=== PATIENT | male | born 1950 | race Caucasian/White ===

== ENCOUNTER 2021-02-27 06:46 | Outpatient (REF) | payer MEDICARE, SELFPAY ==
[2021-02-27 11:35] LABS: Glucose Urine UA 100 MG/DL (NEG); Leukocyte Esterase Urine NEG (NEG); Nitrite Urine NEG (NEG); Specific Gravity - Urine 1.025 (1.005-1.025); Urine Blood TRACE (NEG); Urine Ketones NEG (NEG); Urine Protein NEG (NEG-TRACE)
[2021-02-27 11:42] LABS: Appearance Urine CLEAR; Color Urine YELLOW
[2021-02-27 12:01] LABS: Estimated Average Glucose 189 mg/dL; Hemoglobin A1c % 8.2 %
[2021-02-27 12:08] LABS: Alanine Aminotransferase 17 U/L (0-40); Albumin Level 4.1 g/dL (3.5-5.0); Alkaline Phosphatase 66 U/L (39-117); Anion Gap 14 (12-20); Aspartate Amino Transferase 13 U/L (5-37); Bilirubin Total 0.4 mg/dL (0.0-1.0); Blood Urea Nitrogen 20 mg/dL (9-16); Calcium 9.1 mg/dL (8.4-10.2); Carbon Dioxide 28 mmol/L (22-29); Chloride 102 mmol/L (96-108); Cholesterol 136 mg/dL; Estimated Glomerular Filt Rate > 60; Glucose Fasting 194 mg/dL (60-99); HDL Cholesterol 45 mg/dL; LDL Cholesterol Calculated 79 mg/dl; Potassium 4.2 mmol/L (3.3-5.1); Sodium 140 mmol/L (135-145); Total Protein 6.5 g/dL (6.5-8.0); Triglycerides 60 mg/dL
[2021-02-27 12:22] LABS: Squamous Epithelial Cell Urine TRACE /LPF; WBC Urine 0 /HPF (0-4)
[2021-02-27 12:22] LABS: Prostate Specific Antigen Scr 3.02 ng/mL (<0.05-4.0); TSH reflex Free T4 1.41 uIU/mL (0.32-4.0)
[2021-02-27 12:24] LABS: RBC Urine 0-2 /HPF (0)
[2021-02-27 12:36] LABS: Creatinine Urine 109.82 mg/dL; Microalbum/Creatinine Ratio Ur 58.2 ug/mg cr
== END 2021-02-27 06:47 | disposition home or self-care (01) ==
LOC: HO.HMGCLDS 06:46
PROVIDERS: PCP Nurse Practitioner Family; Visit Provider Nurse Practitioner Family
DX: E11.9 Type 2 diabetes mellitus without complications (principal); R80.9 Proteinuria, unspecified; Z12.5 Encounter for screening for malignant neoplasm of prostate
CPT/HCPCS: 36415; 80053; 80061; 81001; 82043; 83036; 84153; 84443

== ENCOUNTER 2021-08-08 09:27 | Outpatient (REF) | payer MEDICARE, SELFPAY ==
[2021-08-08 11:41] LABS: Estimated Average Glucose 171 mg/dL; Hemoglobin A1c % 7.6 %
[2021-08-08 11:46] LABS: Alanine Aminotransferase 17 U/L (0-40); Albumin Level 4.5 g/dL (3.5-5.0); Alkaline Phosphatase 64 U/L (39-117); Anion Gap 11 (12-20); Aspartate Amino Transferase 15 U/L (5-37); Bilirubin Total 0.7 mg/dL (0.0-1.0); Blood Urea Nitrogen 20 mg/dL (9-16); Calcium 9.5 mg/dL (8.4-10.2); Carbon Dioxide 28 mmol/L (22-29); Chloride 106 mmol/L (96-108); Estimated Glomerular Filt Rate > 60; Glucose Random 203 mg/dL (60-115); Sodium 141 mmol/L (135-145); Total Protein 7.3 g/dL (6.5-8.0)
== END 2021-08-08 09:28 | disposition home or self-care (01) ==
LOC: HO.HMGCLDS 09:27
PROVIDERS: PCP Nurse Practitioner Family; Visit Provider Nurse Practitioner Family
DX: E11.9 Type 2 diabetes mellitus without complications (principal)
CPT/HCPCS: 36415; 80053; 83036

== ENCOUNTER 2022-05-19 06:19 | Outpatient (REF) | payer MEDICARE, SELFPAY ==
[2022-05-19 11:50] LABS: Alanine Aminotransferase 11 U/L (0-40); Albumin Level 4.4 g/dL (3.5-5.0); Alkaline Phosphatase 56 U/L (39-117); Anion Gap 15 (12-20); Aspartate Amino Transferase 13 U/L (5-37); Blood Urea Nitrogen 19 mg/dL (9-16); Calcium 9.2 mg/dL (8.4-10.2); Carbon Dioxide 26 mmol/L (22-29); Chloride 104 mmol/L (96-108); Cholesterol 147 mg/dL; Estimated Glomerular Filt Rate 54; Glucose Fasting 108 mg/dL (60-99); HDL Cholesterol 44 mg/dL; LDL Cholesterol Calculated 91 mg/dl; Sodium 141 mmol/L (135-145); Total Protein 7.1 g/dL (6.5-8.0); Triglycerides 64 mg/dL
[2022-05-19 12:17] LABS: Prostate Specific Antigen Scr 4.57 ng/mL (<0.05-4.0); TSH reflex Free T4 1.87 uIU/mL (0.32-4.0)
[2022-05-19 12:26] LABS: Estimated Average Glucose 157 mg/dL; Hemoglobin A1c % 7.1 %
== END 2022-05-19 06:20 | disposition home or self-care (01) ==
LOC: HO.HMGCLDS 06:19
PROVIDERS: PCP Nurse Practitioner Family; Visit Provider Nurse Practitioner Family
DX: Z12.5 Encounter for screening for malignant neoplasm of prostate (principal); E11.9 Type 2 diabetes mellitus without complications
CPT/HCPCS: 36415; 80053; 80061; 83036; 84153; 84443

== ENCOUNTER 2023-01-19 07:05 | Outpatient (REF) | payer MEDICARE, SELFPAY ==
[2023-01-19 11:32] LABS: MANUAL DIFF FLAG NO
[2023-01-19 11:48] LABS: Appearance Urine Clear; Color Urine Yellow; Glucose Urine UA Negative (Negative); Leukocyte Esterase Urine Negative (Negative); Nitrite Urine Negative (Negative); Specific Gravity - Urine 1.015 (1.005-1.025); UMIC TRIGGER UACC YES; Urine Blood Trace (Negative); Urine Ketones Negative (Negative); Urine Protein 100 (2+) mg/dL (Neg-Trace)
[2023-01-19 11:50] LABS: Basophils Absolute Auto 0.1 X10*3/uL (0.0-0.2); Basophils Percent Auto 0.9 % (0-2); Eosinophils Absolute Auto 0.4 X10*3/uL (0.0-0.4); Eosinophils Percent Auto 4.2 % (0-4); Hematocrit 41.9 % (42.0-52.0); Hemoglobin 14.1 g/dl (14.0-18.0); Imm Gran Abs Auto 0.01 X10*3/uL (0.00-0.03); Imm Gran Pct Auto 0.1 % (0.0-0.4); Lymphocytes Absolute Auto 3.6 X10*3/uL (1.2-4.9); Lymphocytes Percent Auto 38.4 % (20-40); Mean Corpuscular HGB Conc 33.7 g/dl (31.0-36.0); Mean Corpuscular Hemoglobin 30.9 pg (27.0-33.0); Mean Corpuscular Volume 91.7 fL (80.0-98.0); Mean Platelet Volume 11.5 fL (9.4-12.4); Monocytes Absolute Auto 0.7 X10*3/uL (0.1-1.2); Monocytes Percent Auto 7.1 % (2-11); Neutrophils Absolute Auto 4.7 x10*3/uL (2.0-8.3); Neutrophils Percent Auto 49.3 % (45-73); Platelet Count 187 X10*3/uL (160-400); Red Blood Count 4.57 X10*6/uL (4.60-5.80); Red Cell Distribution Width 13.2 % (11.0-16.0); White Blood Count 9.5 X10*3/uL (4.8-10.8)
[2023-01-19 11:52] LABS: Estimated Average Glucose 134 mg/dL; Hemoglobin A1c % 6.3 %
[2023-01-19 11:55] LABS: Bacteria Urine None Seen (None Seen); Hyaline Casts Urine 0-2 /LPF (0-2); Squamous Epithelial Cell Urine 0-2 /HPF (0-2); WBC Urine 0-5 /HPF (0-5)
[2023-01-19 12:24] LABS: Alanine Aminotransferase 16 U/L (0-40); Albumin Level 4.1 g/dL (3.5-5.0); Alkaline Phosphatase 58 U/L (39-117); Anion Gap 10 (12-20); Aspartate Amino Transferase 16 U/L (5-37); Bilirubin Total 0.8 mg/dL (0.0-1.0); Blood Urea Nitrogen 24 mg/dL (9-16); Calcium 9.3 mg/dL (8.4-10.2); Carbon Dioxide 29 mmol/L (22-29); Chloride 106 mmol/L (96-108); Cholesterol 144 mg/dL; Estimated Glomerular Filt Rate 53; Glucose Fasting 114 mg/dL (60-99); HDL Cholesterol 44 mg/dL; LDL Cholesterol Calculated 89 mg/dl; Potassium 4.4 mmol/L (3.3-5.1); Sodium 141 mmol/L (135-145); Total Protein 6.6 g/dL (6.5-8.0); Triglycerides 59 mg/dL
[2023-01-19 12:26] LABS: Prostate Specific Antigen Scr 6.79 ng/mL (<0.05-4.0); TSH reflex Free T4 2.11 uIU/mL (0.32-4.0)
[2023-01-19 12:38] LABS: Creatinine Urine 103.91 mg/dL; Microalbum/Creatinine Ratio Ur 397.4 ug/mg cr
== END 2023-01-19 07:06 | disposition home or self-care (01) ==
LOC: HO.HMGCLDS 07:05
PROVIDERS: PCP Nurse Practitioner Family; Visit Provider Nurse Practitioner Family
DX: Z00.00 Encounter for general adult medical examination without abnormal findings (principal); Z12.5 Encounter for screening for malignant neoplasm of prostate; R97.20 Elevated prostate specific antigen [PSA]; E11.9 Type 2 diabetes mellitus without complications
CPT/HCPCS: 36415; 80053; 80061; 81001; 82043; 83036; 84153; 84443; 85025

== ENCOUNTER 2023-02-05 08:51 | Outpatient (REF) | payer MEDICARE, SELFPAY ==
[2023-02-05 11:12] LABS: MANUAL DIFF FLAG NO
[2023-02-05 11:25] LABS: Basophils Absolute Auto 0.1 X10*3/uL (0.0-0.2); Basophils Percent Auto 0.7 % (0-2); Eosinophils Absolute Auto 0.4 X10*3/uL (0.0-0.4); Hematocrit 43.3 % (42.0-52.0); Hemoglobin 14.3 g/dl (14.0-18.0); Imm Gran Abs Auto 0.02 X10*3/uL (0.00-0.03); Imm Gran Pct Auto 0.2 % (0.0-0.4); Lymphocytes Absolute Auto 3.2 X10*3/uL (1.2-4.9); Lymphocytes Percent Auto 35.4 % (20-40); Mean Corpuscular Hemoglobin 30.2 pg (27.0-33.0); Mean Corpuscular Volume 91.5 fL (80.0-98.0); Monocytes Absolute Auto 0.6 X10*3/uL (0.1-1.2); Monocytes Percent Auto 6.3 % (2-11); Neutrophils Absolute Auto 4.8 x10*3/uL (2.0-8.3); Neutrophils Percent Auto 53.4 % (45-73); Platelet Count 205 X10*3/uL (160-400); Red Blood Count 4.73 X10*6/uL (4.60-5.80)
[2023-02-05 11:39] LABS: Alanine Aminotransferase 18 U/L (0-40); Albumin Level 4.4 g/dL (3.5-5.0); Alkaline Phosphatase 67 U/L (39-117); Anion Gap 14 (12-20); Aspartate Amino Transferase 15 U/L (5-37); Bilirubin Total 0.6 mg/dL (0.0-1.0); Blood Urea Nitrogen 21 mg/dL (9-16); Calcium 9.4 mg/dL (8.4-10.2); Carbon Dioxide 26 mmol/L (22-29); Chloride 108 mmol/L (96-108); Estimated Glomerular Filt Rate 44; Glucose Random 160 mg/dL (60-115); Potassium 4.6 mmol/L (3.3-5.1); Sodium 143 mmol/L (135-145); Total Protein 6.9 g/dL (6.5-8.0)
[2023-02-05 12:00] LABS: Appearance Urine Hazy; Color Urine Yellow; Glucose Urine UA Negative (Negative); Leukocyte Esterase Urine Negative (Negative); Nitrite Urine Negative (Negative); PH 5.5 (5.0-9.0); Specific Gravity - Urine >= 1.030 (1.005-1.025); UMIC TRIGGER UACC YES; Urine Blood Small (1+) (Negative); Urine Ketones Trace mg/dL (Negative); Urine Protein 100 (2+) mg/dL (Neg-Trace)
[2023-02-05 12:06] LABS: Bacteria Urine None Seen (None Seen); Hyaline Casts Urine 0-2 /LPF (0-2); RBC Urine 0-2 /HPF (0-2); Squamous Epithelial Cell Urine 0-2 /HPF (0-2); WBC Urine 0-5 /HPF (0-5)
== END 2023-02-05 08:52 | disposition home or self-care (01) ==
LOC: HO.HMGCLDS 08:51
PROVIDERS: PCP Nurse Practitioner Family; Visit Provider Nurse Practitioner Family
DX: Z01.818 Encounter for other preprocedural examination (principal); I10 Essential (primary) hypertension; I51.7 Cardiomegaly
CPT/HCPCS: 36415; 80053; 81001; 81003; 85025

== ENCOUNTER 2023-02-07 06:32 | Outpatient (REF) | payer MEDICARE, SELFPAY ==
[2023-02-07 11:13] LABS: Appearance Urine Clear; Color Urine Yellow; Glucose Urine UA Negative (Negative); Leukocyte Esterase Urine Negative (Negative); Nitrite Urine Negative (Negative); PH 5.5 (5.0-9.0); UMIC TRIGGER UACC YES; Urine Blood Trace (Negative); Urine Ketones Negative (Negative); Urine Protein 30 (1+) mg/dL (Neg-Trace)
[2023-02-07 11:16] LABS: Bacteria Urine None Seen (None Seen); Hyaline Casts Urine 0-2 /LPF (0-2); RBC Urine 0-2 /HPF (0-2); Squamous Epithelial Cell Urine 0-2 /HPF (0-2); WBC Urine 0-5 /HPF (0-5)
[2023-02-07 11:19] LABS: Estimated Glomerular Filt Rate 57
== END 2023-02-07 06:33 | disposition home or self-care (01) ==
LOC: HO.HMGCLDS 06:32
PROVIDERS: PCP Nurse Practitioner Family; Visit Provider Nurse Practitioner Family
DX: Z00.00 Encounter for general adult medical examination without abnormal findings (principal); R79.89 Other specified abnormal findings of blood chemistry
CPT/HCPCS: 36415; 81001; 82565

== ENCOUNTER 2023-07-27 09:39 | Outpatient (AMB) | payer MEDICARE, SELFPAY ==
[2023-07-27 10:06] VITALS: BP 162/78; PULSE 77; O2SAT 100; BMI 26.3
--- NOTE | 2023-07-27 10:06 | MHC.PC.OV ---
Vital Signs 07/27/23 10:06 Height 5 ft 10 in Weight 183 lb 2 oz BMI 26.3 BP 162/78 H Blood Pressure Location Rt brachial Position Sitting Pulse 77 Pulse Source Pulse Oximeter Pulse Oximetry (%) 100 Oxygen Delivery Method Room Air Intake Visit Reasons: 4m follow up dm Allergies No Known Allergies [No Known Allergies*] Allergy (Verified 07/27/23 10:08) Medication List - Last Reconciled 07/27/23 by TOMEKA Cotter atorvastatin 10 mg PO DAILY blood sugar diagnostic check glucose twice a day lancets As directed losartan 50 mg PO DAILY 30 days metformin 1,000 mg PO BID 30 days pen needle, diabetic As directed Tobacco use date assessed: 07/27/23 Fall risk assessment: No Falls in past year Last assessed Fall Risk: 07/27/23 Dental Screening Dental Screen Date: 07/27/23 Did you have a dental visit in the last 12 months?: No Did you have a dental problem in the last 6 months where you did not have access to dental care?: No Was dental information given to patient?: No HPI 4m follow up dm HPI Details Pt is a diabetic, on an ARB and a statin. A1C in office today is 6.4. Microalbumin is up to date. Denies polyuria, polydipsia, and neuropathy. Pt denies any signs and symptoms of hypoglycemia and does know how to correct it. HTN: Pt's blood pressure is elevated today, though he reports that he has not taken his BP meds yet this morning. Denies chest pain, shortness of breath, headache, dizziness, and blurred vision. Attempted again to educate pt on importance of seeing urology due to elevated PSA, pt refuses. Pt continues to smoke. Eye exam is up to date according to pt. [facility] Medical History Basal cell carcinoma Colon cancer screening declined Osteomyelitis of great toe of right foot PVD (peripheral vascular disease) Surgical History No pertinent past surgical history Family History Father Substance use disorder Mother Substance use disorder Maternal Grandfather Substance use disorder Maternal Grandfather Substance use disorder Social History Housing: Apartment Alcohol intake: current Alcohol intake frequency: does not drink Patient Tobacco Use Status: Current everyday Tobacco user Cigarette Packs Per Day: 1 Cigarettes Per Day: 20 Years Smoked: 45 e-Cigarette/Vaping Use: Never Used Second Hand Smoke Exposure: No service: No Current occupational status: retired Cognitive needs: No Hearing needs: No Vision needs: No Questionnaire Thrive Questionnaire Date Thrive assessed: 02/05/23 ENEDINA-7 AMB Questionnaire ENEDINA-7 Date ENEDINA - 7 assessed: 02/05/23 Source: Developed by Drs. Leonard Esteban, Mayra Awad, Jeremias Paredes and colleagues, with an educational vicente from [employer]. Review of Systems Const Reports as per HPI Physical exam (Primary Care) Vital Signs: Last Vital Signs Pulse 77 07/27/23 10:06 BP 162/78 H 07/27/23 10:06 Pulse Ox 100 07/27/23 10:06 Oxygen Delivery Method Room Air 07/27/23 10:06 BMI result Body Mass Index 26.3 Tobacco/Smoking Status: Tobacco use Status Tobacco use date assessed 07/27/23 07/27/23 10:10 Patient Tobacco Use Status Current everyday Tobacco 07/27/23 10:10 e-Cigarette/Vaping Use Never Used 07/27/23 10:10 Thrive Assessment: Date of Thrive Assessment Date Thrive assessed 02/05/23 07/27/23 10:10 Const General: cooperative Orientation/consciousness: oriented to person and patient oriented x3 Resp Effort & Inspection: normal respiratory effort Auscultation: clear to auscultation bilaterally Cardio Rate: regular rate Rhythm: regular rhythm Heart sounds: S1 normal heart sound present and S2 normal heart sound present Neuro General: oriented to person and patient oriented x3 Extrem Other: bilat feet: + sensation with use of monofilament, severe onychomycosis to bilat big toenails Psych Appearance: grossly normal Mental Status: mental status grossly normal Speech and movement: Normal speech and movement present Affect: normal affect Attitude: cooperative Thought process: Normal thought process present Thought content: Normal thought content present Insight: Good insight present (Psych) Judgement: Good judgement present (Psych) Results AMB Hemoglobin A1c AMB Hemoglobin A1c 6.4 % Last Edit by Ayah Villegas CMA on 07/27/23 10:23 Results Reviewed Results Reviewed: Laboratory Last Values Hgb A1c (Clinic) 6.4 % (4.0-6.0) H 07/27/23 10:03 Assessment and Plan Assessment & Plan (1) Diabetes: Code(s): E11.9 - Type 2 diabetes mellitus without complications Plan: Labs ordered Plan The patient agreed to the use of a medical sales representative for this encounter. Scribed for TOMEKA Oakes by Joan Quintero medical sales representative, on 07/27/2023 at 10:20 EST Orders: Orders Complete Blood Count Auto Diff Today E11.9 - Type 2 diabetes mellitus without complications TSH reflex Free T4 Today E11.9 - Type 2 diabetes mellitus without complications AMB Hemoglobin A1c Today E11.9 - Type 2 diabetes mellitus without complications Comprehensive [place]. Panel Fast Today E11.9 - Type 2 diabetes mellitus without complications UA CC w/rflx Micro + Cult Today E11.9 - Type 2 diabetes mellitus without complications Lipid Panel Today E11.9 - Type 2 diabetes mellitus without complications Microalbumin, Random (w Creat) Today E11.9 - Type 2 diabetes mellitus without complications Coding Level of Care Code Est Pt Level 3 (08951) Diagnoses Diabetes E11.9
== END 2023-07-27 10:33 | disposition home or self-care (01) ==
PROVIDERS: PCP Nurse Practitioner Family; Visit Provider Nurse Practitioner Family
DX: E11.9 Type 2 diabetes mellitus without complications (principal)
CPT/HCPCS: 83036; 99213

== ENCOUNTER 2023-10-21 10:39 | Outpatient (AMB) | payer MEDICARE, SELFPAY ==
--- NOTE | 2023-10-21 11:10 | MHC.PC.OV ---
Vital Signs 10/21/23 11:13 Height 5 ft 10 in Weight 197 lb BMI 28.3 BP 150/82 H Blood Pressure Location Lt brachial Position Sitting Pulse 86 Pulse Source Pulse Oximeter Pulse Oximetry (%) 97 Oxygen Delivery Method Room Air Intake Visit Reasons: Annual PE Intake Note: Patient here for physical exam. no new issues or concerns. Allergies No Known Allergies [No Known Allergies*] Allergy (Verified 10/21/23 12:36) Medication List - Last Reconciled 10/21/23 by TOMEKA Cotter atorvastatin 10 mg PO DAILY blood sugar diagnostic check glucose twice a day lancets As directed losartan 50 mg PO DAILY 30 days metformin 1,000 mg PO BID 30 days pen needle, diabetic As directed Tobacco use date assessed: 10/21/23 Fall risk assessment: No Falls in past year Last assessed Fall Risk: 10/21/23 Dental Screening Dental Screen Date: 10/21/23 Did you have a dental visit in the last 12 months?: No Did you have a dental problem in the last 6 months where you did not have access to dental care?: No Was dental information given to patient?: Patient declined HPI Annual PE HPI Details Patient is here for physical exam. He is a diabetic. He is currently on a statin and an ARB. 7.2 A1c today. He does not check his sugars very often. Patient is noted to have a history of elevated PSA, he flat out refuses to see a urologist. Pt refused any change in meds today as well (wanted to increase his losartan). Pt refuses colonoscopy. Pt refused to go for a LDCT due to smoking. refused any vaccinations [facility] Medical History Basal cell carcinoma PVD (peripheral vascular disease) Osteomyelitis of great toe of right foot Colon cancer screening declined Surgical History No pertinent past surgical history Family History Father Substance use disorder Mother Substance use disorder Maternal Grandfather Substance use disorder Maternal Grandfather Substance use disorder Social History Housing: Apartment Alcohol intake: current Alcohol intake frequency: does not drink Patient Tobacco Use Status: Current everyday Tobacco user Tobacco use type: Cigarette Cigarette Packs Per Day: 1 Cigarettes Per Day: 20 Years Smoked: 45 e-Cigarette/Vaping Use: Never Used Second Hand Smoke Exposure: No service: No Current occupational status: retired Cognitive needs: No Hearing needs: No Vision needs: No Questionnaire PHQ-9 Over the last 2 weeks, how often have you been bothered by any of the following problems? 1. Little interest or pleasure in doing things: not at all 2. Feeling down, depressed, or hopeless: not at all 3. Trouble falling or staying asleep, or sleeping too much: not at all 4. Feeling tired or having little energy: not at all 5. Poor appetite or overeating: not at all 6. Feeling bad about yourself - or that you are a failure or have let yourself or your family down: not at all 7. Trouble concentrating on things, such as reading the newspaper or watching television: not at all 8. Moving or speaking so slowly that other people could have noticed. Or the opposite - being so fidgety or restless that you have been moving around a lot more than usual: not at all 9. Thoughts that you would be better off or of hurting yourself in some way: not at all Total score: 0 Depression Screening Interpretation: Negative Depression Screening Done: Yes 91466 - PHQ-9 Billing: Yes Source: Developed by Drs. Leonard Esteban, Mayra Awad, Jeremias Paredes and colleagues, with an educational vicente from [employer]. Thrive Questionnaire Date Thrive assessed: 10/21/23 I am a: Patient What is your living situation today?: I have a steady place to live Within the past 12 months, did the food you bought not last and you didn't have the money to get more?: Never true Within the past 12 months, did you worry whether your food would run out before you got money to buy more?: Never true Do you have trouble paying for medicines?: No Do you have trouble getting transportation to medical appointments?: No Do you have trouble paying your heating and electricity bill?: No Do you have trouble taking care of your child, family member or friend?: No Do you have trouble with day-to-day activities such as bathing, preparing meals, shopping, managing finances, etc.?: No Are you currently unemployed and looking for a job?: No Are you interested in more education?: No Currently or been in a relationship where the following occur: no concerns reported AUDIT C Alcohol Use Questionnaire (AUDIT-C) 1. How often do you have a drink containing alcohol?: Never 3. How often do you have six or more drinks on one occasion?: Never Total Score: 0 Score Reviewed/Action Taken: No ENEDINA-7 AMB Questionnaire ENEDINA-7 Date ENEDINA - 7 assessed: 10/21/23 Feeling nervous, anxious, or on edge: 0 = Not at all Not being able to stop or control worryin = Not at all Worrying too much about different things: 0 = Not at all Trouble relaxin = Not at all Being so restless that it is hard to sit still: 0 = Not at all Becoming easily annoyed or irritable: 0 = Not at all Feeling afraid as if something awful might happen: 0 = Not at all Total ENEDINA-7 score (0-4 normal; 5-9 mild; 10-14 moderate; 15-21 severe): 0 Source: Developed by Drs. Leonard Esteban, Mayra Awad, Jeremias Paredes and colleagues, with an educational vicente from [employer]. ENEDINA-7 Assessment Billing ENEDINA-7 Assessment Tool: ENEDINA-7 Assessment 22591 Review of Systems Const Denies chills and Denies fever(s) Eyes Denies blurry vision ENT Denies vertigo, Denies dizziness and Denies sore throat Card Denies chest pain at rest, Denies chest pain with activity, Denies diaphoresis, Denies dyspnea and Denies dyspnea on exertion Resp Denies cough, Denies dyspnea, Denies dyspnea on exertion and Denies wheezing GI Denies abdominal pain, Denies melena, Denies hematochezia, Denies constipation, Denies diarrhea and Denies loose stools Denies hematuria Musc Denies numbness and Denies tingling Skin/Breast Denies lesions Neuro Denies vertigo, Denies dizziness, Denies numbness and Denies tingling Psych Denies anxiety, Denies depression, Denies homicidal ideation, Denies suicidal ideation and Denies other (substance abuse) Aller/Immun Denies wheezing Physical exam (Primary Care) Vital Signs: Last Vital Signs Pulse 86 10/21/23 11:13 BP 150/82 H 10/21/23 11:13 Pulse Ox 97 10/21/23 11:13 Oxygen Delivery Method Room Air 10/21/23 11:13 BMI result Body Mass Index 28.3 Tobacco/Smoking Status: Tobacco use Status Tobacco use date assessed 10/21/23 10/21/23 11:15 Patient Tobacco Use Status Current everyday Tobacco 10/21/23 11:15 Tobacco use type Cigarette 10/21/23 11:15 e-Cigarette/Vaping Use Never Used 10/21/23 11:15 PHQ-9: PHQ-9 Score PHQ-9: Total score 0 10/21/23 11:31 Depression Screening Interpretation: Negative Thrive Assessment: Date of Thrive Assessment Date Thrive assessed 10/21/23 10/21/23 11:21 Currently or been in a relationship where the following occur: no concerns reported Const General: cooperative Nutritional Appearance: well nourished Orientation/consciousness: patient oriented x3 HENMT Head: Yes normal to inspection, Yes normocephalic and Yes atraumatic Ears: TM normal on the right and TM normal on the left Eyes General: appearance normal, both eyes and all related structures Alignment and Position: alignment normal and position normal Neck Neck: Yes normal visual inspection and Yes no lymphadenopathy Resp Effort & Inspection: normal respiratory effort Auscultation: clear to auscultation bilaterally and diminished lung sounds Cardio Rate: regular rate Rhythm: regular rhythm Heart sounds: S1 normal heart sound present, S2 normal heart sound present and no murmurs GI Palpation (GI): Soft to palpation and nontender Auscultation: normal bowel sounds Other: refused exam and COLE Skin Other: left episcopalian with large circular scar, with anterior aspect with small scab. Rashes: no rashes Neuro Other: + sensation with use of monofilament, onychomycosis noted to big toe nails General: patient oriented x3, moves all extremities, no focal motor deficits and deep tendon reflexes 2+ bilaterally Romberg Test: Negative Extrem Right lower extremity: no edema Left lower extremity: no edema Psych Affect: normal affect Attitude: cooperative Thought process: Normal thought process present Insight: Good insight present (Psych) Judgement: Good judgement present (Psych) Results AMB Hemoglobin A1c AMB Hemoglobin A1c 7.2 % Last Edit by MATHEW Valera on 10/21/23 11:31 Results Reviewed Results Reviewed: Laboratory Last Values Hgb A1c (Clinic) 7.2 % (4.0-6.0) H 10/21/23 11:31 Assessment and Plan Assessment & Plan (1) HTN (hypertension): Code(s): I10 - Essential (primary) hypertension Plan: refused change in meds/med doseages (2) Diabetes: Code(s): E11.9 - Type 2 diabetes mellitus without complications Plan: refused change in meds (3) Physical exam: Code(s): Z00.00 - Encounter for general adult medical examination without abnormal findings Orders: Orders AMB Hemoglobin A1c Today E11.9 - Type 2 diabetes mellitus without complications Coding Level of Care Code Est Pt Prev Care >65y(44114) Diagnoses HTN (hypertension) I10 Diabetes E11.9 Physical exam Z00.00 Additional Codes ENEDINA-7 Assessment Billing - ENEDINA-7 Assessment Tool: ENEDINA-7 Assessment 43810 ([id number])
[2023-10-21 11:13] VITALS: BP 150/82; PULSE 86; O2SAT 97; BMI 28.3
== END 2023-10-21 11:46 | disposition home or self-care (01) ==
PROVIDERS: Visit Provider Nurse Practitioner Family
DX: I10 Essential (primary) hypertension (principal); E11.9 Type 2 diabetes mellitus without complications; Z00.00 Encounter for general adult medical examination without abnormal findings
CPT/HCPCS: 83036; 99397

== ENCOUNTER 2024-02-18 09:16 | Outpatient (AMB) | payer MEDICARE, SELFPAY ==
--- NOTE | 2024-02-18 09:24 | A.OFFPC_ITS ---
Vital Signs 02/18/24 09:28 Height 5 ft 10 in Weight 197 lb BMI 28.3 BP 160/80 H Blood Pressure Location Rt brachial Position Sitting Pulse 81 Pulse Source Pulse Oximeter Pulse Oximetry (%) 98 Oxygen Delivery Method Room Air Intake Visit Reasons: 4 month follow up Intake Note: Patient here for diabetes follow, pt states his BS have been stable. Allergies No Known Allergies [No Known Allergies*] Allergy (Verified 02/18/24 09:37) Medication List - Last Reconciled 02/18/24 by TOMEKA Cotter atorvastatin 10 mg PO DAILY blood sugar diagnostic check glucose twice a day lancets As directed losartan 50 mg PO DAILY 30 days metformin 1,000 mg PO BID 30 days pen needle, diabetic As directed Tobacco use date assessed: 10/21/23 Dental Screening Dental Screen Date: 10/21/23 HPI 4 month follow up HPI Details Pt is a diabetic, on an ARB and a statin. A1C in office today is 7.1, refuses to go on further medication. Due for microalbumin, will order. Denies polyuria, polydipsia, and neuropathy. Pt denies any signs and symptoms of hypoglycemia and does know how to correct it. HTN: Blood pressure is elevated, managed with losartan 50mg. Will increase losartan to 100mg. Denies chest pain, shortness of breath, headache, dizziness, and blurred vision. Elevated PSA: continuously reminding pt of the dangers/result of PSA increasing (like his is). He refuses to see a urologist/further treatment. Pt refuses LDCTs. Pt refuses to see podiatry. [facility] Medical History Basal cell carcinoma PVD (peripheral vascular disease) Osteomyelitis of great toe of right foot Colon cancer screening declined Surgical History No pertinent past surgical history Family History Father Substance use disorder Mother Substance use disorder Maternal Grandfather Substance use disorder Maternal Grandfather Substance use disorder Social History Housing: Apartment Alcohol intake: current Alcohol intake frequency: does not drink Patient Tobacco Use Status: Current everyday Tobacco user Tobacco use type: Cigarette Cigarette Packs Per Day: 1 Cigarettes Per Day: 20 Years Smoked: 45 e-Cigarette/Vaping Use: Never Used Second Hand Smoke Exposure: No service: No Current occupational status: retired Cognitive needs: No Hearing needs: No Vision needs: No Questionnaire Thrive Questionnaire Date Thrive assessed: 10/21/23 ENEDINA-7 AMB Questionnaire ENEDINA-7 Date ENEDINA - 7 assessed: 10/21/23 Source: Developed by Drs. Leonard Esteban, Mayra Awad, Jeremias Paredes and colleagues, with an educational vicente from [employer]. Review of Systems Const Reports as per HPI Physical exam (Primary Care) Vital Signs: Last Vital Signs Pulse 81 02/18/24 09:28 BP 160/80 H 02/18/24 09:28 Pulse Ox 98 02/18/24 09:28 Oxygen Delivery Method Room Air 02/18/24 09:28 BMI result Body Mass Index 28.3 Tobacco/Smoking Status: Tobacco use Status Tobacco use date assessed 10/21/23 02/18/24 09:26 Patient Tobacco Use Status Current everyday Tobacco 02/18/24 09:26 Tobacco use type Cigarette 02/18/24 09:26 e-Cigarette/Vaping Use Never Used 02/18/24 09:26 Thrive Assessment: Date of Thrive Assessment Date Thrive assessed 10/21/23 02/18/24 09:26 Const General: cooperative Orientation/consciousness: patient oriented x3 Resp Effort & Inspection: normal respiratory effort Auscultation: clear to auscultation bilaterally and diminished lung sounds Cardio Rate: regular rate Rhythm: regular rhythm Heart sounds: S1 normal heart sound present and S2 normal heart sound present Neuro General: patient oriented x3 Extrem Other: bilat feet: + sensation with use of monofilament, feet intact, significant onychomycosis noted bilat Results AMB Hemoglobin A1c AMB Hemoglobin A1c 7.1 % Last Edit by MATHEW Valera on 02/18/24 10 :01 Assessment and Plan Assessment & Plan (1) Diabetes: Code(s): E11.9 - Type 2 diabetes mellitus without complications Plan: Labs ordered, (2) Screening PSA (prostate specific antigen): Code(s): Z12.5 - Encounter for screening for malignant neoplasm of prostate Plan: PSA ordered (3) HTN (hypertension): Code(s): I10 - Essential (primary) hypertension Plan: increased losartan from 50mg to 100mg (4) Elevated PSA: Code(s): R97.20 - Elevated prostate specific antigen [PSA] Plan: refuses to follow up with urology, dangers of elevated PSA explained to pt. Plan The patient agreed to the use of a director medical safety for this encounter. Scribed for TOMEKA Oakes by latoya Davis scribe, on 02/18/2024 at 09:35 EST. Orders: Orders Complete Blood Count Auto Diff Today E11.9 - Type 2 diabetes mellitus without complications TSH reflex Free T4 Today E11.9 - Type 2 diabetes mellitus without complications Microalbumin, Random (w Creat) Today E11.9 - Type 2 diabetes mellitus without complications Prostate Specific Antigen Scr Today Z12.5 - Encounter for screening for malignant neoplasm of prostate AMB Hemoglobin A1c Today Z13.9 - Encounter for screening, unspecified Comprehensive [place]. Panel Fast Today E11.9 - Type 2 diabetes mellitus without complications UA CC w/rflx Micro + Cult Today E11.9 - Type 2 diabetes mellitus without complications Lipid Panel Today E11.9 - Type 2 diabetes mellitus without complications Medications: Changed From losartan 50 mg PO DAILY 30 days 30 tabs 3RF To losartan 100 mg PO DAILY 90 days 90 tabs 3RF From metformin 1,000 mg PO BID 30 days 60 tabs 2RF To metformin 1,000 mg PO BID 90 days 180 tabs 2RF Coding Level of Care Code Est Pt Level 3 (55410) Diagnoses Diabetes E11.9 Screening PSA (prostate specific antigen) Z12.5 HTN (hypertension) I10 Elevated PSA R97.20
[2024-02-18 09:28] VITALS: BP 160/80; PULSE 81; O2SAT 98; BMI 28.3
== END 2024-02-18 09:53 | disposition home or self-care (01) ==
PROVIDERS: PCP Nurse Practitioner Family; Visit Provider Nurse Practitioner Family
DX: E11.9 Type 2 diabetes mellitus without complications (principal); Z12.5 Encounter for screening for malignant neoplasm of prostate; I10 Essential (primary) hypertension; R97.20 Elevated prostate specific antigen [PSA]
CPT/HCPCS: 83036; 99213

== ENCOUNTER 2024-07-13 06:55 | Outpatient (REF) | payer MEDICARE, SELFPAY ==
[2024-07-13 10:10] LABS: MANUAL DIFF FLAG NO
[2024-07-13 10:16] LABS: Basophils Absolute Auto 0.1 X10*3/uL (0.0-0.2); Basophils Percent Auto 0.6 % (0-2); Eosinophils Absolute Auto 0.3 X10*3/uL (0.0-0.4); Eosinophils Percent Auto 3.7 % (0-4); Hematocrit 40.3 % (42.0-52.0); Hemoglobin 13.5 g/dl (14.0-18.0); Imm Gran Abs Auto 0.03 X10*3/uL (0.00-0.03); Imm Gran Pct Auto 0.4 % (0.0-0.4); Lymphocytes Absolute Auto 3.4 X10*3/uL (1.2-4.9); Lymphocytes Percent Auto 39.9 % (20-40); Mean Corpuscular HGB Conc 33.5 g/dl (31.0-36.0); Mean Corpuscular Hemoglobin 30.7 pg (27.0-33.0); Mean Corpuscular Volume 91.6 fL (80.0-98.0); Monocytes Absolute Auto 0.6 X10*3/uL (0.1-1.2); Monocytes Percent Auto 6.7 % (2-11); Neutrophils Absolute Auto 4.1 x10*3/uL (2.0-8.3); Neutrophils Percent Auto 48.7 % (45-73); Platelet Count 188 X10*3/uL (160-400); Red Cell Distribution Width 13.2 % (11.0-16.0); White Blood Count 8.4 X10*3/uL (4.8-10.8)
[2024-07-13 10:34] LABS: Appearance Urine Clear; Color Urine Yellow; Glucose Urine UA Negative (Negative); Leukocyte Esterase Urine Negative (Negative); Nitrite Urine Negative (Negative); PH 6.5 (5.0-9.0); UMIC TRIGGER UACC YES; Urine Blood Negative (Negative); Urine Ketones Negative (Negative); Urine Protein 30 (1+) mg/dL (Neg-Trace)
[2024-07-13 10:36] LABS: Alanine Aminotransferase 12 U/L (0-40); Albumin Level 4.2 g/dL (3.5-5.0); Alkaline Phosphatase 57 U/L (39-117); Anion Gap 12 (12-20); Aspartate Amino Transferase 14 U/L (5-37); Bilirubin Total 0.6 mg/dL (0.0-1.0); Blood Urea Nitrogen 16 mg/dL (9-16); Calcium 9.3 mg/dL (8.4-10.2); Carbon Dioxide 29 mmol/L (22-29); Chloride 106 mmol/L (96-108); Cholesterol 147 mg/dL (<200); Estimated Glomerular Filt Rate 45; Glucose Fasting 109 mg/dL (60-99); HDL Cholesterol 48 mg/dL (>40); LDL Cholesterol Calculated 87 mg/dL (<100); Potassium 4.3 mmol/L (3.3-5.1); Sodium 143 mmol/L (135-145); Total Protein 7.1 g/dL (6.5-8.0); Triglycerides 61 mg/dL (<150)
[2024-07-13 10:44] LABS: Bacteria Urine None Seen (None Seen); Hyaline Casts Urine 0-2 /LPF (0-2); RBC Urine 0-2 /HPF (0-2); Squamous Epithelial Cell Urine 0-2 /HPF (0-2); WBC Urine 0-5 /HPF (0-5)
[2024-07-13 10:55] LABS: TSH reflex Free T4 1.25 uIU/mL (0.32-4.0)
[2024-07-13 11:41] LABS: Creatinine Urine 85.11 mg/dL; Microalbum/Creatinine Ratio Ur 270.2 ug/mg cr (<30)
[2024-07-13 12:03] LABS: Prostate Specific Antigen Scr 71.38 ng/mL (<0.05-4.0)
== END 2024-07-13 06:56 | disposition home or self-care (01) ==
LOC: HO.HMGCLDS 06:55
PROVIDERS: PCP Nurse Practitioner Family; Visit Provider Nurse Practitioner Family
DX: E11.9 Type 2 diabetes mellitus without complications (principal); Z12.5 Encounter for screening for malignant neoplasm of prostate
CPT/HCPCS: 36415; 80053; 80061; 81001; 82043; 82570; 84153; 84443; 85025

== ENCOUNTER 2024-07-18 14:21 | Outpatient (AMB) | payer MEDICARE, SELFPAY ==
[2024-07-18 14:27] VITALS: BP 152/80; PULSE 78; O2SAT 98; BMI 27.5
--- NOTE | 2024-07-18 14:27 | A.OFFPC_ITS ---
Vital Signs 07/18/24 14:27 Height 5 ft 10 in Weight 192 lb BMI 27.5 BP 152/80 H Blood Pressure Location Rt brachial Position Sitting Pulse 78 Pulse Source Pulse Oximeter Pulse Oximetry (%) 98 Oxygen Delivery Method Room Air Intake Visit Reasons: 4 month follow up Intake Note: pt is here for 4 month follow up Center Director Required: No Accompanied by: Self / Same As Patient Allergies No Known Allergies [No Known Allergies*] Allergy (Verified 07/18/24 14:36) Medication List - Last Reconciled 07/18/24 by TOMEKA Cotter atorvastatin 10 mg PO DAILY blood sugar diagnostic check glucose twice a day lancets As directed losartan 100 mg PO DAILY 90 days metformin 1,000 mg PO BID 90 days pen needle, diabetic As directed Tobacco use date assessed: 07/18/24 Fall risk assessment: No Falls in past year Last assessed Fall Risk: 07/18/24 Dental Screening Dental Screen Date: 07/18/24 Did you have a dental visit in the last 12 months?: Yes Did you have a dental problem in the last 6 months where you did not have access to dental care?: No Was dental information given to patient?: Patient has dentist HPI 4 month follow up HPI Details Pt is a diabetic, on an ARB and a statin. A1C in office today is 6.6. Microalbumin is up to date. Denies polyuria, polydipsia, and neuropathy. Pt denies any signs and symptoms of hypoglycemia and does know how to correct it. Pt reports not having a diabetic eye exam, will refer. Pt's PSA was very elevated at 71.38. Explained to pt that there is a high likelihood of prostate cancer. Pt has been very reluctant over the years to see urology for rising PSA. Will place referral, pt reports he will think about this. Pt refused LDCTs multiple times. Pt's blood pressure is elevated today. He reports not taking his losartan 100mg. He takes 50mg. Will have pt restart this complete dose. Refuses all vaccines. [facility] Medical History Basal cell carcinoma PVD (peripheral vascular disease) Osteomyelitis of great toe of right foot Colon cancer screening declined Surgical History No pertinent past surgical history Family History Father Substance use disorder Mother Substance use disorder Maternal Grandfather Substance use disorder Maternal Grandfather Substance use disorder Social History Housing: Apartment Alcohol intake: current Alcohol intake frequency: does not drink Patient Tobacco Use Status: Current everyday Tobacco user Tobacco use type: Cigarette Cigarette Packs Per Day: 1 Cigarettes Per Day: 20 Years Smoked: 45 e-Cigarette/Vaping Use: Never Used Second Hand Smoke Exposure: No service: No Current occupational status: retired Cognitive needs: No Hearing needs: No Vision needs: No Questionnaire PHQ-9 Over the last 2 weeks, how often have you been bothered by any of the following problems? 1. Little interest or pleasure in doing things: not at all 2. Feeling down, depressed, or hopeless: not at all 3. Trouble falling or staying asleep, or sleeping too much: not at all 4. Feeling tired or having little energy: not at all 5. Poor appetite or overeating: not at all 6. Feeling bad about yourself - or that you are a failure or have let yourself o r your family down: not at all 7. Trouble concentrating on things, such as reading the newspaper or watching television: not at all 8. Moving or speaking so slowly that other people could have noticed. Or the opposite - being so fidgety or restless that you have been moving around a lot more than usual: not at all 9. Thoughts that you would be better off or of hurting yourself in some way: not at all Total score: 0 Depression Screening Interpretation: Negative Depression Screening Done: Yes 18115 - PHQ-9 Billing: Yes Source: Developed by Drs. Leonard Esteban, Mayra Awad, Jeremias winter nd colleagues, with an educational vicente from [employer]. Thrive Questionnaire Date Thrive assessed: 07/18/24 I am a: Patient What is your living situation today?: I choose not to answer this question Within the past 12 months, did the food you bought not last and you didn't have the money to get more?: I choose not to answer this question Within the past 12 months, did you worry whether your food would run out before you got money to buy more?: I choose not to answer this question Do you have trouble paying for medicines?: I choose not to answer this question Do you have trouble getting transportation to medical appointments?: I choose not to answer this question Do you have trouble paying your heating and electricity bill?: I choose not to answer this question Do you have trouble taking care of your child, family member or friend?: I choose not to answer this question Do you have trouble with day-to-day activities such as bathing, preparing meals, shopping, managing finances, etc.?: I choose not to answer this question Are you interested in more education?: I choose not to answer this question Please select the resources that you would like help with: None Currently or been in a relationship where the following occur: I choose not to answer THRIVE Score: 0 AUDIT C Alcohol Use Questionnaire (AUDIT-C) 1. How often do you have a drink containing alcohol?: Never 3. How often do you have six or more drinks on one occasion?: Never Total Score: 0 Score Reviewed/Action Taken: Yes ENEDINA-7 AMB Questionnaire ENEDINA-7 Date ENEDINA - 7 assessed: 07/18/24 Feeling nervous, anxious, or on edge: 0 = Not at all Not being able to stop or control worryin = Not at all Worrying too much about different things: 0 = Not at all Trouble relaxin = Not at all Being so restless that it is hard to sit still: 0 = Not at all Becoming easily annoyed or irritable: 0 = Not at all Feeling afraid as if something awful might happen: 0 = Not at all Total ENEDINA-7 score (0-4 normal; 5-9 mild; 10-14 moderate; 15-21 severe): 0 Source: Developed by Drs. Leonard Esteban, Mayra Awad, Jeremias Paredes and colleagues, with an educational vicente from [employer]. ENEDINA-7 Assessment Billing ENEDINA-7 Assessment Tool: ENEDINA-7 Assessment 77932 Review of Systems Const Reports as per HPI Physical exam (Primary Care) Vital Signs: Last Vital Signs Pulse 78 07/18/24 14:27 BP 152/80 H 07/18/24 14:27 Pulse Ox 98 07/18/24 14:27 Oxygen Delivery Method Room Air 07/18/24 14:27 BMI result Body Mass Index 27.5 Tobacco/Smoking Status: Tobacco use Status Tobacco use date assessed 07/18/24 07/18/24 14:28 Patient Tobacco Use Status Current everyday Tobacco 07/18/24 14:28 Tobacco use type Cigarette 07/18/24 14:28 e-Cigarette/Vaping Use Never Used 07/18/24 14:28 PHQ-9: PHQ-9 Score PHQ-9: Total score 0 07/18/24 14:58 Depression Screening Interpretation: Negative Thrive Assessment: Date of Thrive Assessment Date Thrive assessed 07/18/24 07/18/24 14:36 Currently or been in a relationship where the following occur: I choose not to answer Const General: cooperative Orientation/consciousness: patient oriented x3 Resp Effort & Inspection: normal respiratory effort Auscultation: clear to auscultation bilaterally (slightly Dim bilat) Cardio Rate: regular rate Rhythm: regular rhythm Heart sounds: S1 normal heart sound present and S2 normal heart sound present Neuro General: patient oriented x3 Extrem Other: bilat feet: + sensation with use of monofilament, feet intact, onychomycosis n oted bilat Psych Appearance: grossly normal Mental Status: mental status grossly normal Speech and movement: Normal speech and movement present Affect: normal affect Attitude: cooperative Thought process: Normal thought process present Thought content: Normal thought content present Insight: Good insight present (Psych) Judgement: Good judgement present (Psych) Assessment and Plan Assessment & Plan (1) Elevated PSA: Code(s): R97.20 - Elevated prostate specific antigen [PSA] Plan: Referred to urology, despite previous refusal (2) Diabetes: Code(s): E11.9 - Type 2 diabetes mellitus without complications Plan: Referred for eye exam, A1c stable (3) HTN (hypertension): Code(s): I10 - Essential (primary) hypertension Plan: encouraged to take full 100mg dose of losartan Plan The patient agreed to the use of a medical records field technician for this encounter. Scribed for TOMEKA Oakes by latoya Davis scribe, on 07/18/2024 at 14:55 EST. Orders: Referrals Urology Referral R97.20 - Elevated prostate specific antigen [PSA] Ophthalmology Referral E11.9 - Type 2 diabetes mellitus without complications Coding Level of Care Code Est Pt Level 3 (66414) Diagnoses Elevated PSA R97.20 Diabetes E11.9 HTN (hypertension) I10 Additional Codes ENEDINA-7 Assessment Billing - ENEDINA-7 Assessment Tool: ENEDINA-7 Assessment 40361 ([id number])
== END 2024-07-18 15:10 | disposition home or self-care (01) ==
PROVIDERS: PCP Nurse Practitioner Family; Visit Provider Nurse Practitioner Family
DX: R97.20 Elevated prostate specific antigen [PSA] (principal); E11.9 Type 2 diabetes mellitus without complications; I10 Essential (primary) hypertension

== ENCOUNTER → 2024-07-18 14:21 | Outpatient (BNVA) | payer MEDICARE, SELFPAY | PROVIDERS: PCP Nurse Practitioner Family; Visit Provider Nurse Practitioner Family | DX: R97.20 Elevated prostate specific antigen [PSA] (principal); E11.9 Type 2 diabetes mellitus without complications; I10 Essential (primary) hypertension | CPT/HCPCS: 96127; 99212 ==

== ENCOUNTER 2025-02-06 10:05 | Outpatient (AMB) | payer MEDICARE, SELFPAY ==
--- OUTSIDE RECORDS SUMMARY | 2025-02-06 10:07 | XMS_ITS | Encounter Summary ---
Author Organization [facility] Address [address] [place] [address] Phone Care Team Providers Care Chief Of Hospital Medicine Name Role Phone Ruben Palacios NP Primary Care Provider [phone] Encounter Details Date Type Department Care Team (Late st Contact Info) Description 01/26/2023 Documentation Only [facility], [address] [place] [address] Ruben Palacios NP [address] [place] [address] Social History Tobacco Use Types Packs/Day Years Used Date Smoking Tobacco: Never Assessed Sex and Gender Information Value Date Recorded Sex Assigned at Not on file Legal Sex Male 4:56 PM EST Gender Identity Not on file Sexual Orientation Not on file documented as of this encounter Plan of Treatment Not on file documented as of this encounter Visit Diagnoses Not on filedocumented in this encounter Care Teams Chief Of Hospital Medicine Relationship Specialty Start Date End Date Ruben Palacios NP [address] [place] [address] PCP - General 10/29/20 documented as of this encounter
[2025-02-06 10:12] VITALS: BP 142/82; PULSE 79; RESP 20; TEMP 36.6; O2SAT 98; BMI 28.8
--- NOTE | 2025-02-06 10:12 | MHC.PC.OV ---
Vital Signs 02/06/25 10:12 Height 5 ft 10 in Weight 201 lb BMI 28.8 BP 142/82 H Blood Pressure Location Lt brachial Position Sitting Respiration 20 Pulse 79 Pulse Source Pulse Oximeter Temp 97.9 F Temp Source Oral Pulse Oximetry (%) 98 Oxygen Delivery Method Room Air Intake Visit Reasons: 6 months f/up - see comments Allergies No Known Allergies [No Known Allergies*] Allergy (Verified 02/06/25 10:13) Medication List - Last Reconciled 02/06/25 by KAMILLE Cotter atorvastatin 40 mg PO DAILY blood sugar diagnostic check glucose twice a day lancets As directed losartan 100 mg PO DAILY 90 days metformin 1,000 mg PO BID pen needle, diabetic As directed Tobacco use date assessed: 02/06/25 Fall risk assessment: No Falls in past year Last assessed Fall Risk: 02/06/25 Dental Screening Dental Screen Date: 02/06/25 Did you have a dental visit in the last 12 months?: No Did you have a dental problem in the last 6 months where you did not have access to dental care?: No Was dental information given to patient?: Patient declined HPI 6 months f/up - see comments HPI Details Chief Complaint Follow-up for diabetes management and concern over elevated PSA History of Present Illness The patient is a 74-year-old male presenting with follow-up for diabetes management. His diabetes is currently well-controlled with an A1c of 6.4%, although slight anemia is present. There is an ongoing concern regarding elevated creatinine levels, warranting a referral to nephrology. The patient has a notably high PSA level over 71 ng/mL. Discussions emphasized potential risks, but he remains hesitant to pursue urological consultation. A right-sided carotid bruit was detected, necessitating an ultrasound. The patient's history includes smoking and hypertension, with blood pressure discrepancies noted between arms. Social History - Tobacco Use Disorder: The patient is a smoker, which impacts his cardiovascular health. Health Maintenance - Discussed implications of elevated PSA and the importance of potential urologist consultation. - Plan for carotid ultrasound due to detected bruit. - Increase in statin therapy due to smoking history. Review of Systems - Cardiovascular: denies any increased sob, CP, adamson, blurred vision. - Metabolic: Denies any new symptoms related to diabetes management. - Social: Reports ongoing tobacco use. Physical Exam General: Cooperative, healthy appearing, comfortable, no acute distress and well developed Orientation: Patient oriented x3 Limitations: No limitations Head: Normal to inspection Ears: Hearing grossly normal bilaterally Nose: Normal external nose present Face and sinus: Normal facial exam Eyes: Appearance normal, both eyes and all related structures Neck: Right sided carotid bruits noted Respiratory: Normal respiratory effort and able to speak in complete sentences. Clear to auscultation bilaterally Cardiovascular: Regular rate and rhythm. Normal S1 and S2 GI: Normal to inspection. Soft to palpation and nontender Skin: No rashes or lesions noted Neuro: Patient oriented x3 Extremities: Normal to inspection, + sensation with use of monofilament, intact feet bilat Results - Labs: Hemoglobin A1c 6.4%. - Tests and diagnostics: Elevated PSA over 71 ng/mL. Plan 1. 4%, though anemia is present and requires observation. Referral to nephrology for elevated creatinine is planned. In addressing the significantly high PSA, risks of prostate issues were discussed extensively. A carotid ultrasound is scheduled to investigate the detected right-sided bruit. The patient's statin dosage is increased significantly due to smoking and hypertension risks, with blood pressure starting to reflect noticeable variation and needing ongoing monitoring. The patient was informed about the implications of his PSA levels despite his reluctance for further consultation.: Discussion Notes During the consultation, I communicated the need for ongoing diabetes management given the current level of control and the noted anemia. The elevated PSA level was specifically highlighted, with thorough discussion on possible adverse outcomes like cancer and metastasis without active management. We discussed the option of seeing a urologist, but the patient is steadfast in his choice not to pursue this at present. The patient was informed about the carotid bruit and the plan to perform an ultrasound, alongside increasing his statin dosage to counteract cardiovascular risks related to smoking. Emphasized the importance of regular monitoring for present conditions, integrating lifestyle changes, and possible follow-ups, as necessary. Pt refused colon screens, psa, vaccinations, and BP monitoring at home Patient Instructions - Monitor blood sugar levels regularly to ensure continued diabetes control. - Follow through with the nephrology referral for creatinine evaluation. - Consider seeing a urologist for further evaluation of elevated PSA despite concerns. - Attend the scheduled carotid ultrasound once confirmed. - Increase and adhere to the prescribed statin therapy. - Monitor blood pressure at home and report any significant changes. - Consider reducing smoking to decrease associated health risks. [facility] Medical History Basal cell carcinoma PVD (peripheral vascular disease) Osteomyelitis of great toe of right foot Colon cancer screening declined Surgical History No pertinent past surgical history Family History Father Substance use disorder Mother Substance use disorder Maternal Grandfather Substance use disorder Maternal Grandfather Substance use disorder Social History Housing: Apartment Alcohol intake: current Alcohol intake frequency: does not drink Patient Tobacco Use Status: Current everyday Tobacco user Tobacco use type: Cigarette Cigarette Packs Per Day: 1 Cigarettes Per Day: 20 Years Smoked: 45 e-Cigarette/Vaping Use: Never Used Second Hand Smoke Exposure: No service: No Current occupational status: retired Cognitive needs: No Hearing needs: No Vision needs: No Questionnaire PHQ-9 Over the last 2 weeks, how often have you been bothered by any of the following problems? 1. Little interest or pleasure in doing things: not at all 2. Feeling down, depressed, or hopeless: not at all 3. Trouble falling or staying asleep, or sleeping too much: not at all 4. Feeling tired or having little energy: not at all 5. Poor appetite or overeating: not at all 6. Feeling bad about yourself - or that you are a failure or have let yourself or your family down: not at all 7. Trouble concentrating on things, such as reading the newspaper or watching television: not at all 8. Moving or speaking so slowly that other people could have noticed. Or the opposite - being so fidgety or restless that you have been moving around a lot more than usual: not at all 9. Thoughts that you would be better off or of hurting yourself in some way: not at all Total score: 0 Depression Screening Interpretation: Negative Depression Screening Done: Yes 63746 - PHQ-9 Billing: Yes Source: Developed by Drs. Leonard Esteban, Mayra Awad, Jeremias Paredes and colleagues, with an educational vicente from [employer]. Thrive Questionnaire Date Thrive assessed: 02/06/25 I am a: Patient What is your living situation today?: I have a steady place to live Within the past 12 months, did the food you bought not last and you didn't have the money to get more?: I choose not to answer this question Within the past 12 months, did you worry whether your food would run out before you got money to buy more?: I choose not to answer this question Do you have trouble paying for medicines?: I choose not to answer this question Do you have trouble getting transportation to medical appointments?: I choose not to answer this question Do you have trouble paying your heating and electricity bill?: I choose not to answer this question Do you have trouble taking care of your child, family member or friend?: I choose not to answer this question Do you have trouble with day-to-day activities such as bathing, preparing meals, shopping, managing finances, etc.?: I choose not to answer this question Are you currently unemployed and looking for a job?: I choose not to answer this question Are you interested in more education?: I choose not to answer this question Please select the resources that you would like help with: None THRIVE Score: 0 AUDIT C Alcohol Use Questionnaire (AUDIT-C) 1. How often do you have a drink containing alcohol?: Never 3. How often do you have six or more drinks on one occasion?: Never Total Score: 0 ENEDINA-7 AMB Questionnaire ENEDINA-7 Date ENEDINA - 7 assessed: 02/06/25 Feeling nervous, anxious, or on edge: 0 = Not at all Not being able to stop or control worryin = Not at all Worrying too much about different things: 0 = Not at all Trouble relaxin = Not at all Being so restless that it is hard to sit still: 0 = Not at all Becoming easily annoyed or irritable: 0 = Not at all Feeling afraid as if something awful might happen: 0 = Not at all Total ENEDINA-7 score (0-4 normal; 5-9 mild; 10-14 moderate; 15-21 severe): 0 Source: Developed by Drs. Leonard Esteban, Mayra Awad, Jeremias Paredes and colleagues, with an educational vicente from [employer]. ENEDINA-7 Assessment Billing ENEDINA-7 Assessment Tool: ENEDINA-7 Assessment 58580 Physical exam (Primary Care) Vital Signs: Last Vital Signs Temp 97.9 F 02/06/25 10:12 Pulse 79 02/06/25 10:12 Resp 20 02/06/25 10:12 BP 142/82 H 02/06/25 10:12 Pulse Ox 98 02/06/25 10:12 Oxygen Delivery Method Room Air 02/06/25 10:12 BMI result Body Mass Index 28.8 Tobacco/Smoking Status: Tobacco use Status Tobacco use date assessed 02/06/25 02/06/25 10:18 Patient Tobacco Use Status Current everyday Tobacco 02/06/25 10:18 Tobacco use type Cigarette 02/06/25 10:18 e-Cigarette/Vaping Use Never Used 02/06/25 10:18 PHQ-9: PHQ-9 Score PHQ-9: Total score 0 02/06/25 10:25 Depression Screening Interpretation: Negative Thrive Assessment: Date of Thrive Assessment Date Thrive assessed 02/06/25 02/06/25 10:18 Results AMB Hemoglobin A1c AMB Hemoglobin A1c 6.4 % Last Edit by YADIEL Castanon on 02/06/25 10:26 Results Reviewed Results Reviewed: Laboratory Last Values Hgb A1c (Clinic) 6.4 % (4.0-6.0) H 02/06/25 10:20 Coding Level of Care Code Est Pt Level 4 (18760) Diagnoses Carotid stenosis, right I65.21 Diabetes E11.9 Elevated PSA R97.20 Elevated serum creatinine R79.89 Additional Codes ENEDINA-7 Assessment Billing - ENEDINA-7 Assessment Tool: ENEDINA-7 Assessment 57522 ([id number]) PHQ-9 - 41608 - PHQ-9 Billing: Yes ([id number]) Assessment & Plan Assessment & Plan (1) Carotid stenosis, right: Code(s): I65.21 - Occlusion and stenosis of right carotid artery Category: Medical (2) Diabetes: Code(s): E11.9 - Type 2 diabetes mellitus without complications Category: Medical (3) Elevated PSA: Code(s): R97.20 - Elevated prostate specific antigen [PSA] Category: Medical (4) Elevated serum creatinine: Code(s): R79.89 - Other specified abnormal findings of blood chemistry Category: Medical Plan . Orders: Orders AMB Hemoglobin A1c Today Z13.9 - Encounter for screening, unspecified US carotid duplex BI Today I65.21 - Occlusion and stenosis of right carotid artery Referrals Nephrology Referral E11.9 - Type 2 diabetes mellitus without complications, R79.89 - Other specified abnormal findings of blood chemistry Medications: New aspirin 81 mg PO DAILY 90 tabs 4RF Changed From atorvastatin 10 mg PO DAILY 90 tabs 1RF To atorvastatin 40 mg PO DAILY 90 tabs 1RF
== END 2025-02-06 14:33 | disposition home or self-care (01) ==
LOC: HO.HMCC 10:06
PROVIDERS: PCP Nurse Practitioner Family; Visit Provider Nurse Practitioner Family
DX: I65.21 Occlusion and stenosis of right carotid artery (principal); E11.9 Type 2 diabetes mellitus without complications; R97.20 Elevated prostate specific antigen [PSA]; R79.89 Other specified abnormal findings of blood chemistry; Z13.9 Encounter for screening, unspecified

== ENCOUNTER → 2025-02-06 10:05 | Outpatient (BNVA) | payer MEDICARE, SELFPAY | PROVIDERS: PCP Nurse Practitioner Family; Visit Provider Nurse Practitioner Family | DX: I65.21 Occlusion and stenosis of right carotid artery (principal); E11.9 Type 2 diabetes mellitus without complications; R97.20 Elevated prostate specific antigen [PSA]; R79.89 Other specified abnormal findings of blood chemistry | CPT/HCPCS: 83036; 96127; 99212 ==

== ENCOUNTER 2025-03-28 11:32 | Outpatient (AMB) | payer MEDICARE, SELFPAY ==
--- NOTE | 2025-03-28 11:43 | AM.OFFWIN_ITS ---
Intake Vital Signs 03/28/25 11:50 Height 5 ft 10 in Weight 200 lb BMI 28.7 BP 130/80 Blood Pressure Location Lt brachial Position Sitting Pulse 71 Pulse Source Pulse Oximeter Pulse Oximetry (%) 92 Oxygen Delivery Method Room Air Intake Visit Reasons: EP-lt foot swollen & pain Intake Note: Patient here for left foot pain and swelling that has been present for a couple of days. Patient Tobacco Use Status: Current everyday Tobacco user Allergies No Known Allergies [No Known Allergies*] Allergy (Verified 03/28/25 11:50) Do you need a note to return to daycare/school/sports/work: No HPI HPI Comments History of Present Illness Details History of Present Illness - The patient is a 74-year-old male pres enting with swelling and infection of the left foot. - Two weeks prior, the condition started after wearing new boots, causing abrasions and bruising, resulting in the present swelling and superficial infection. - The patient's medical history includes hospitalization and severe infection of the right foot with osteomyelitis and concerns for potential amputation four years ago. - Patient is diabetic, stating the curre nt management of blood sugar is consistent, and highlights the risk of exacerbating the foot infection. - Elevates foot to reduce swelling with noted improvement but persistent swelling persists upon waking. Physical Exam General: Cooperative, healthy appearing, comfortable, no acute distress and well developed Orientation: Patient oriented x3 Limitations: No limitations Head: Normal to inspection Ears: Hearing grossly normal bilaterally Nose: Normal External nose present Face and sinus: Normal facial exam Eyes: Appearance normal, both eyes and all related structures Neck: Normal visual inspection and Yes full ROM Respiratory: Normal respiratory effort and able to speak in complete sentences. Skin: Left dorsal foot at the base of the 4th and 5th toes has some edema and erythema and warmth, small scab on the 5th toe lateral side, all 5 toes full range of motion and neurovascularly intact. Left Foot exam otherwise normal Neuro: Patient oriented x3 Extremities: as above, otherwise normal exam [facility] Medical History Basal cell carcinoma PVD (peripheral vascular disease) Osteomyelitis of great toe of right foot Colon cancer screening declined Surgical History No pertinent past surgical history Family History Father Substance use disorder Mother Substance use disorder Maternal Grandfather Substance use disorder Maternal Grandfather Substance use disorder Social History Housing: Apartment Alcohol intake: current Alcohol intake frequency: does not drink Patient Tobacco Use Status: Current everyday Tobacco user Tobacco use type: Cigarette Cigarette Packs Per Day: 1 Cigarettes Per Day: 20 Years Smoked: 45 e-Cigarette/Vaping Use: Never Used Second Hand Smoke Exposure: No service: No Current occupational status: retired Cognitive needs: No Hearing needs: No Vision needs: No Review of Systems Const All systems reviewed & are unremarkable except as noted in HPI and below Physical Exam Vital Signs: Last Vital Signs Pulse 71 03/28/25 11:50 BP 130/80 03/28/25 11:50 Pulse Ox 92 03/28/25 11:50 Oxygen Delivery Method Room Air 03/28/25 11:50 BMI result Body Mass Index 28.7 Assessment & Plan Assessment & Plan (1) Cellulitis: Code(s): L03.90 - Cellulitis, unspecified Qualifiers: Site of cellulitis: extremity Site of cellulitis of extremity: lower extremity Laterality: left Qualified Code(s): L03.116 - Cellulitis of left lower limb Plan: - Prescribe Cephalexin every 6 hours and Doxycycline every 12 hours for 7 days to treat left foot infection. - Advise patient to monitor infection progress and return if symptoms persist after 48 hours. - Suggest continuing foot elevation and Epsom salt soaks to alleviate symptoms. 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 Patient was informed and verbally consented to the use of an ambient scribe for clinic note documentation during this visit. Medications: New 2 cephalexin 500 mg PO Q6H 28 caps 0RF doxycycline hyclate 100 mg PO BID 14 tabs 0RF Coding Level of Care Code Est Pt Level 3 (30832) Diagnoses Cellulitis of left lower extremity L03.116 Site of cellulitis: extremity Site of cellulitis of extremity: lower extremity Laterality: left
[2025-03-28 11:50] VITALS: BP 130/80; PULSE 71; O2SAT 92; BMI 28.7
--- OUTSIDE RECORDS SUMMARY | 2025-03-28 13:50 | XMS_ITS | Clinical Summary ---
Author Organization [facility] Facility Address [address] [place] [id number] Care Team Providers Care Tip Printer Name Role Phone Seandara Ruben BOGGS Primary Care Provider [phone] Social History Tobacco Use Types Packs/Day Years Used Date Smoking Tobacco: Never Assessed Sex and Gender Information Value Date Recorded Sex Assigned at Not on file Legal Sex Male 4:56 PM EST Gender Identity Not on file Sexual Orientation Not on file Plan of Treatment Health Maintenance Due Date Last Done Comments Colorectal Cancer Screening: Annual FOBT 2001 Colorectal Cancer Screening: Colonoscopy 2001 Colorectal Cancer Screening: Sigmoidoscopy 2001 Pneumococcal Vaccine: 50+ Ye ars (1 of - PCV) 2002 Influenza Vaccine (Season Ended) 2025 Hepatitis B Vaccine Aged Out No longe r eligible based on patient's age to complete this topic Insurance [facility] [employer] [facility] Complete (LIFE1) [place] [address] Care Teams Tip Printer Relationship Specialty Start Date End Date Ruben Palacios NP 1959 [facility] [place] [address] PCP - General 10/29/20
== END 2025-03-28 16:00 | disposition home or self-care (01) ==
PROVIDERS: PCP Nurse Practitioner Family; Visit Provider Physician Assistant
DX: L03.116 Cellulitis of left lower limb (principal)

== ENCOUNTER → 2025-03-28 11:32 | Outpatient (BNVA) | payer MEDICARE, SELFPAY | PROVIDERS: PCP Nurse Practitioner Family; Visit Provider Physician Assistant | DX: L03.116 Cellulitis of left lower limb (principal) | CPT/HCPCS: 99212 ==

== ENCOUNTER 2025-04-04 10:11 | Outpatient (AMB) | payer MEDICARE, SELFPAY ==
[2025-04-04 10:11] VITALS: BP 138/74; PULSE 69; TEMP 36.7; O2SAT 96; BMI 28.7
--- NOTE | 2025-04-04 10:11 | AM.OFFWIN_ITS ---
Intake Vital Signs 04/04/25 10:11 Height 5 ft 10 in Weight 200 lb BMI 28.7 BP 138/74 Blood Pressure Location Lt brachial Position Sitting Pulse 69 Pulse Source Pulse Oximeter Temp 98.1 F Temp Source Oral Pulse Oximetry (%) 96 Oxygen Delivery Method Room Air Intake Visit Reasons: EP ? infected LT Intake Note: Pt presents to the office today for a left foot check. Pt states he had a blister on his pinky toe and was given antibiotics. Pt states he is doing well. Patient Tobacco Use Status: Current everyday Tobacco user Allergies No Known Allergies [No Known Allergies*] Allergy (Verified 04/04/25 10:11) HPI HPI Comments History of Present Illness Details History - The patient is a 74-year-old male pres enting with left foot pain and swelling. - The condition began a few days prior t o the initial consultation on March 28, linked to abrasions from boots. - Treatment involved a course of Keflex and Doxycycline, with noted improvement in symptoms and reduced pain. - He finished the Keflex, he is two days behind on Doxycycline, but will finish it tomorrow. - Tells me the wound was healing well an d feels so much better. - He is asking for more antibiotics to lexis castillo sure it heals fully as he cannot miss out on working at the [email or web address] in a few wks Physical Exam General: Cooperative, healthy appearing, comfortable, no acute distress and well developed Orientation: Patient oriented x3 Limitations: No limitations Head: Normal to inspection Ears: Hearing grossly normal bilaterally Nose: Normal External nose present Face and sinus: Normal facial exam Mouth: normal, moist oral mucosa Eyes: Appearance normal, both eyes and all related structures Neck: Normal visual inspection and Yes full ROM Respiratory: Normal respiratory effort and able to speak in complete sentences. Skin: no rashes or lesions noted Neuro: Patient oriented x3 Extremities: moving all extremities normally, left foot slight erythema on dorsal aspect, no warmth, no edema or TTP of area [facility] Medical History Basal cell carcinoma PVD (peripheral vascular disease) Osteomyelitis of great toe of right foot Colon cancer screening declined Surgical History No pertinent past surgical history Family History Father Substance use disorder Mother Substance use disorder Maternal Grandfather Substance use disorder Maternal Grandfather Substance use disorder Social History Housing: Apartment Alcohol intake: current Alcohol intake frequency: does not drink Patient Tobacco Use Status: Current everyday Tobacco user Tobacco use type: Cigarette Cigarette Packs Per Day: 1 Cigarettes Per Day: 20 Years Smoked: 45 e-Cigarette/Vaping Use: Never Used Second Hand Smoke Exposure: No service: No Current occupational status: retired Cognitive needs: No Hearing needs: No Vision needs: No Review of Systems Const All systems reviewed & are unremarkable except as noted in HPI and below Physical Exam Vital Signs: Last Vital Signs Temp 98.1 F 04/04/25 10:11 Pulse 69 04/04/25 10:11 BP 138/74 04/04/25 10:11 Pulse Ox 96 04/04/25 10:11 Oxygen Delivery Method Room Air 04/04/25 10:11 BMI result Body Mass Index 28.7 Assessment & Plan Assessment & Plan (1) Cellulitis: Code(s): L03.90 - Cellulitis, unspecified Qualifiers: Site of cellulitis: extremity Site of cellulitis of extremity: lower extremity Laterality: left Qualified Code(s): L03.116 - Cellulitis of left lower limb Plan: Patient was informed and verbally consented to the use of an ambient scribe for clinic note documentation during this visit 1. Left Foot Pain And Swelling - Continue current antibiotics, ensuring completion of Doxycycline course. - Consider topical cream to aid healing. - Advise keeping the foot clean and dry, avoid prolonged boot wear. Coding Level of Care Code Est Pt Level 3 (00460) Diagnoses Cellulitis of left lower extremity L03.116 Site of cellulitis: extremity Site of cellulitis of extremity: lower extremity Laterality: left
--- OUTSIDE RECORDS SUMMARY | 2025-04-04 11:36 | XMS_ITS | Clinical Summary ---
Author Organization [facility] Facility Address [address] [place] [id number] Care Team Providers Care Revenue Accountant Name Role Phone Seandara Ruben BOGGS Primary Care Provider [phone] Social History Tobacco Use Types Packs/Day Years [...] patient's age to complete this topic Insurance [facility] [employer] [facility] Complete (LIFE1) UHC Medicare Care Teams Revenue Accountant Relationship Specialty Start Date End Date Ruben Palacios NP 1959 [facility] [place] [id number] PCP - General 10/29/20
== END 2025-04-04 11:06 | disposition home or self-care (01) ==
PROVIDERS: PCP Nurse Practitioner Family; Visit Provider Physician Assistant
DX: L03.116 Cellulitis of left lower limb (principal)

== ENCOUNTER → 2025-04-04 10:11 | Outpatient (BNVA) | payer MEDICARE, SELFPAY | PROVIDERS: PCP Nurse Practitioner Family; Visit Provider Physician Assistant | DX: L03.116 Cellulitis of left lower limb (principal) | CPT/HCPCS: 99212 ==

== ENCOUNTER 2025-04-11 09:25 | Outpatient (AMB) | payer MEDICARE, SELFPAY ==
[2025-04-11 09:33] VITALS: BP 158/67; PULSE 90; TEMP 36.7; O2SAT 96; BMI 26.6
--- NOTE | 2025-04-11 09:33 | AM.OFFWIN_ITS ---
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 - The blister appeared two weeks ago and has since spread to involve the entire foot. - Initial treatment included antibiotics prescribed by a healthcare provider named Cynthia. - The patient reports partial improvemen t but expresses concern about the need for further antibiotics to prevent progression. - The patient has a history of a severe infection in the past that required a PICC line for antibiotic administration. - The patient stopped the last course of antibiotics a week ago and is requesting an additional 10-day course to ensure complete resolution. - He denies fever, chills, CP, SOB, numb ness, or tingling. Physical Exam General: Cooperative, healthy appearing, comfortable, no acute distress and well developed Respiratory: Normal respiratory effort and able to speak in complete sentences. Clear to auscultation bilaterally Cardiovascular: Regular rate and rhythm. Normal S1 and S2 Skin: Blister on 5th toe of the left foot. Dry, non fluctuant with a scab on the left 5th toe. Toes on the left foot slightly erythematous, not swollen. Extremities: Ambulates with steady gait. Strength is 5/5 on the LE bilaterally. No TTP of left toes. Patient was informed and verbally consented to the use of an ambient scribe for clinic note documentation during this visit. [facility] Medical History Basal cell carcinoma PVD (peripheral vascular disease) Osteomyelitis of great toe of right foot Colon cancer screening declined Surgical History No pertinent past surgical history Family History Father Substance use disorder Mother Substance use disorder Maternal Grandfather Substance use disorder Maternal Grandfather Substance use disorder Social History Housing: Apartment Alcohol intake: current Alcohol intake frequency: does not drink Patient Tobacco Use Status: Current everyday Tobacco user Tobacco use type: Cigarette Cigarette Packs Per Day: 1 Cigarettes Per Day: 20 Years Smoked: 45 e-Cigarette/Vaping Use: Never Used Second Hand Smoke Exposure: No service: No Current occupational status: retired Cognitive needs: No Hearing needs: No Vision needs: No Review of Systems Const All systems reviewed & are unremarkable except as noted in HPI and below Physical Exam Vital Signs: Last Vital Signs Temp 98.0 F 04/11/25 09:33 Pulse 90 04/11/25 09:33 BP 158/67 H 04/11/25 09:33 Pulse Ox 96 04/11/25 09:33 Oxygen Delivery Method Room Air 04/11/25 09:33 BMI result Body Mass Index 26.6 Assessment & Plan Assessment & Plan (1) Cellulitis of left foot: Code(s): L03.116 - Cellulitis of left lower limb Plan Most likely cellulitis vs diabetic foot infection vs MRSA Plan - Prescribe an additional 10-day course of antibiotics to address the persistent infection and prevent further complications. - Monitor the patient's response to the antibiotics and assess for any signs of progression or complications. - Rest and elevate the foot - Tylenol as needed for pain or fever. - Follow up with PCP. Medications: New amoxicillin-pot clavulanate 875-125 mg 1 tab PO Q12H 20 tabs 0RF 10 days Coding Level of Care Code Est Pt Level 3 (63427) Diagnoses Cellulitis of left foot L03.116
--- OUTSIDE RECORDS SUMMARY | 2025-04-11 10:03 | XMS_ITS | Clinical Summary ---
Author Organization [facility] Facility Address [address] [place] [id number] Care Team Providers Care Personal Financial Counselor Name Role Phone Seandara Ruben BOGGS Primary Care Provider [phone] Social History Tobacco Use Types Packs/Day Years [...] patient's age to complete this topic Insurance [facility] [employer] [facility] Complete (LIFE1) UHC Medicare Care Teams Personal Financial Counselor Relationship Specialty Start Date End Date Ruben Palacios NP 1959 [facility] [place] [id number] PCP - General 10/29/20
== END 2025-04-11 10:11 | disposition home or self-care (01) ==
PROVIDERS: PCP Nurse Practitioner Family; Visit Provider Physician Assistant Medical
DX: L03.116 Cellulitis of left lower limb (principal)

== ENCOUNTER → 2025-04-11 09:25 | Outpatient (BNVA) | payer MEDICARE, SELFPAY | PROVIDERS: PCP Nurse Practitioner Family; Visit Provider Physician Assistant Medical | DX: L03.116 Cellulitis of left lower limb (principal) | CPT/HCPCS: 99212 ==

== ENCOUNTER 2025-04-24 08:09 | Outpatient (AMB) | payer MEDICARE, SELFPAY ==
[2025-04-24 08:10] VITALS: BP 152/60; PULSE 78; TEMP 36.9; O2SAT 97; BMI 26.8
--- NOTE | 2025-04-24 08:10 | AM.OFFWIN_ITS ---
Intake Vital Signs 04/24/25 08:10 Height 5 ft 10 in Weight 187 lb BMI 26.8 BP 152/60 H Blood Pressure Location Rt brachial Position Sitting Pulse 78 Pulse Source Pulse Oximeter Temp 98.4 F Temp Source Oral Pulse Oximetry (%) 97 Oxygen Delivery Method Room Air Intake Visit Reasons: EP Pain & Swollen LT foot Intake Note: Patient present with a painful and swollen left foot. 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 - The was seen here on 03/28, 04/04, and for the same issue. - The patient has been on Augmentin 125 mg, which has been effective in treating his bacterial infection. - The patient has a history of using dox ycycline and Keflex, which were less effective. - The patient reports a healing wound on the foot, with no discharge or fever, and good coloration. - The patient also requests supplies for diabetes management, as his current kit is broken and outdated. - The patient reports an HbA1c of 6.1%, indicating good glycemic control. - He has not checked his BS due to not h aving a machine. - He denies fever, chills, discharge, bl eeding, CP or SOB. Physical Exam General: Cooperative, healthy appearing, comfortable, no acute distress and well developed Orientation: Patient oriented x3 Respiratory: Normal respiratory effort and able to speak in complete sentences. Clear to auscultation bilaterally Cardiovascular: Regular rate and rhythm. Normal S1 and S2 Skin: No rashes or lesions noted, wound healing with scab on the left 5th toe, no discharge noted. Neuro: Sensation is intact. Extremities: Normal to inspection. Slight erythema noted on the left foot. No warmth or streaking noted. FROM of the left digits on the foot. FROM of the left ankle. Ambulates with steady gait. Strength is 5/5 on the LE. Pulses are 2+ on the LE. Patient was informed and verbally consented to the use of an ambient scribe for clinic note documentation during this visit. [facility] Medical History Basal cell carcinoma PVD (peripheral vascular disease) Osteomyelitis of great toe of right foot Colon cancer screening declined Surgical History No pertinent past surgical history Family History Father Substance use disorder Mother Substance use disorder Maternal Grandfather Substance use disorder Maternal Grandfather Substance use disorder Social History Housing: Apartment Alcohol intake: current Alcohol intake frequency: does not drink Patient Tobacco Use Status: Current everyday Tobacco user Tobacco use type: Cigarette Cigarette Packs Per Day: 1 Cigarettes Per Day: 20 Years Smoked: 45 e-Cigarette/Vaping Use: Never Used Second Hand Smoke Exposure: No service: No Current occupational status: retired Cognitive needs: No Hearing needs: No Vision needs: No Review of Systems Const All systems reviewed & are unremarkable except as noted in HPI and below Physical Exam Vital Signs: Last Vital Signs Temp 98.4 F 04/24/25 08:10 Pulse 78 04/24/25 08:10 BP 152/60 H 04/24/25 08:10 Pulse Ox 97 04/24/25 08:10 Oxygen Delivery Method Room Air 04/24/25 08:10 BMI result Body Mass Index 26.8 Assessment & Plan Assessment & Plan (1) Cellulitis of left foot: Code(s): L03.116 - Cellulitis of left lower limb (2) Diabetic foot ulcer: Code(s): E11.621 - Type 2 diabetes mellitus with foot ulcer; L97.509 - Non-pressure chronic ulcer of other part of unspecified foot with unspecified severity Qualifiers: Diabetic foot ulcer location: toe Diabetes mellitus type: type 2 Laterality: left Non-pressure ulcer stage: unspecified non-pressure ulcer stage Qualified Code(s): E11.621 - Type 2 diabetes mellitus with foot ulcer; L97.529 - Non-pressure chronic ulcer of other part of left foot with unspecified severity Plan Moat likely diabetic foot wound, healing with cellulitis Plan - Keep wound clean and dry - Prescribe Augmentin 125 mg for 10 days to continue treatment of bacterial infection. - Arrange for diabetes management supplies, including a new kit for blood glucose monitoring. - Advise follow-up with primary care provider for diabetes management and wound care assessment. Medications: New amoxicillin-pot clavulanate 875-125 mg 1 tab PO Q12H 20 tabs 0RF 10 days lancets As directed 100 ea 0RF Refilled blood sugar diagnostic check glucose twice a day 100 ea 2RF Coding Level of Care Code Est Pt Level 4 (75799) Diagnoses Cellulitis of left foot L03.116 Diabetic ulcer of toe of left foot associated with type 2 diabetes mellitus, unspecified ulcer stage E11.621; L97.529 Diabetic foot ulcer location: toe Diabetes mellitus type: type 2 Laterality: left Non-pressure ulcer stage: unspecified non-pressure ulcer stage
== END 2025-04-24 09:17 | disposition home or self-care (01) ==
PROVIDERS: PCP Nurse Practitioner Family; Visit Provider Physician Assistant Medical
DX: L03.116 Cellulitis of left lower limb (principal); E11.621 Type 2 diabetes mellitus with foot ulcer; L97.529 Non-pressure chronic ulcer of other part of left foot with unspecified severity

== ENCOUNTER → 2025-04-24 08:09 | Outpatient (BNVA) | payer MEDICARE, SELFPAY | PROVIDERS: PCP Nurse Practitioner Family; Visit Provider Physician Assistant Medical | DX: L03.116 Cellulitis of left lower limb (principal); E11.621 Type 2 diabetes mellitus with foot ulcer; L97.529 Non-pressure chronic ulcer of other part of left foot with unspecified severity | CPT/HCPCS: 99212 ==

== ENCOUNTER 2025-04-29 10:01 | Outpatient (REF) | payer MEDICARE, SELFPAY ==
--- NOTE | ~2025-04-29 | XR_ITS ---
CLINICAL HISTORY: L03.90 - Cellulitis, unspecified --- Additional Notes or Special Instructions: attention to the lateral, blister with ulceration and cellulitis 3 view left foot Comparison: None provided Findings: Bones intact. No dislocations. Possible mild cortical erosion of the anterolateral aspect of the head of the 5th middle phalanx. This could potentially be artifactual. Mild arthritic change. Calcaneal spur at the plantar fascia origin. No ankle effusion. No radiopaque foreign body. There are extensive peripheral vascular calcifications compatible with diabetes. IMPRESSION: Findings raise the possibility of early osteomyelitis of the head of the 5th middle phalanx. This document has been electronically signed by: Naima Albrecht MD on 04/29/2025 13:13:00
== END 2025-04-29 10:02 | disposition home or self-care (01) ==
LOC: HO.HMGCX 10:01
PROVIDERS: PCP Nurse Practitioner Family; Visit Provider Physician Assistant Medical
DX: L03.032 Cellulitis of left toe (principal); I73.9 Peripheral vascular disease, unspecified; E11.9 Type 2 diabetes mellitus without complications; F17.210 Nicotine dependence, cigarettes, uncomplicated
CPT/HCPCS: 73630; 99212

== ENCOUNTER 2025-04-29 10:01 | Outpatient (AMB) | payer MEDICARE, SELFPAY ==
--- NOTE | 2025-04-29 10:15 | AM.OFFWIN_ITS ---
Intake Vital Signs 04/29/25 10:16 Height 5 ft 10 in Weight 180 lb BMI 25.8 BP 126/52 L Blood Pressure Location Lt brachial Position Sitting Respiration 16 Pulse 81 Pulse Source Pulse Oximeter Temp 98.7 F Temp Source Oral Pulse Oximetry (%) 98 Oxygen Delivery Method Room Air Intake Visit Reasons: EP pain & swollen LT leg Intake Note: Pt is here today c/o Lt foot swollen and red: He's on abx for his foot last day is today Patient Tobacco Use Status: Current everyday Tobacco user Allergies No Known Allergies (No Known Allergies*) Allergy (Verified 06/01/25 11:51) HPI EP pain & swollen LT leg HPI Details Patient is a 74-year-old male with history of diabetes and peripheral vascular disease, who continues to smoke heavily despite having history of osteomyelitis in the right foot, and now has had a left the small toe infection for over a month now. He reports completing 2 courses of antibiotics, which have not yet been able to help him completely heal, from what was initially an abrasion that he reports blistered over and then popped. He developed a scab, but the joint is tender, and it makes walking difficult. No fever chills, malaise or myalgias, weakness or dizziness, nausea vomiting diarrhea, or other significant symptoms associated with systemic infection. [facility] Medical History (Updated 06/02/25 @ 00:02 by Dallas Arzola) Diabetes CKD stage 3b, GFR 30-44 ml/min Osteomyelitis HTN (hypertension) Microalbuminuria Osteomyelitis Basal cell carcinoma PVD (peripheral vascular disease) Osteomyelitis of great toe of right foot Colon cancer screening declined Surgical History No pertinent past surgical history Family History Father Substance use disorder Mother Substance use disorder Maternal Grandfather Substance use disorder Maternal Grandfather Substance use disorder Social History Household Members: None Housing: House Do you presently have visiting nurse or other home services: No Alcohol intake: current Alcohol intake frequency: does not drink Patient Tobacco Use Status: Current everyday Tobacco user Tobacco use type: Cigarette Cigarette Packs Per Day: 1 Cigarettes Per Day: 20.0 Years Smoked: 45 e-Cigarette/Vaping Use: Never Used Second Hand Smoke Exposure: No Substance Use Type: Marijuana service: No Current occupational status: retired Cognitive needs: No Hearing needs: No Vision needs: No Review of Systems Const All systems reviewed & are unremarkable except as noted in HPI and below Physical Exam Vital Signs: Last Vital Signs Temp 98.7 F 04/29/25 10:16 Pulse 81 04/29/25 10:16 Resp 16 04/29/25 10:16 BP 126/52 L 04/29/25 10:16 Pulse Ox 98 04/29/25 10:16 Oxygen Delivery Method Room Air 04/29/25 10:16 BMI result Body Mass Index 25.8 Skin General skin exam: eschar (Left 5th IP joint, with scant surrounding erythema and edema) Assessment & Plan Assessment & Plan (1) Cellulitis of toe of left foot: Code(s): L03.032 - Cellulitis of left toe Plan Left toe lesion continues to be mildly erythematous and edematous despite 2 rounds of antibiotics, with an overlying eschar on the joint, mildly tender to palpation. There is no streaking and no extension of edema to the upper aspect of the foot/ankle or leg, however plain film x-ray of the foot does seem consistent with early osteomyelitis of the head of the 5th middle phalanx, per radiologist read. Patient was informed of this, but declined ED today, wanting to trial an extended Augmentin course to see if this would help. He is aware of the ramifications of worsening osteomyelitis, as he does have a history of this to the right great toe in the past, and I believe that he is reliable for follow up to monitor symptoms closely. Therefore I did agree to extend his Augmentin. In the meantime, I advised smoking sensation completely, due to known peripheral vascular disease, which is likely the cause of his ulcers and osteomyelitis in the past along with diabetes, as well as this current condition. I told him that even if his toe is improving with the antibiotic outpatient, he would likely need referral to wound care, and that he needed to follow up with Ruben Weiss or come back to the walk-in in the next few days to continue monitoring this. If it seems to worsen at all, he knows to go to the emergency department for evaluation. Orders: Orders XR foot LT min 3V 04/29/25 L03.90 - Cellulitis, unspecified Medications: Refilled amoxicillin-pot clavulanate 875-125 mg 1 tab PO Q12H 20 tabs 0RF 10 days Coding Level of Care Code Est Pt Level 4 (14909) Diagnoses Cellulitis of toe of left foot L03.032
[2025-04-29 10:16] VITALS: BP 126/52; PULSE 81; RESP 16; TEMP 37.1; O2SAT 98; BMI 25.8
== END 2025-04-29 12:09 | disposition home or self-care (01) ==
PROVIDERS: PCP Nurse Practitioner Family; Visit Provider Physician Assistant Medical
DX: L03.032 Cellulitis of left toe (principal)

== ENCOUNTER → 2025-04-29 11:35 | Outpatient (BNV) | payer MEDICARE, SELFPAY | PROVIDERS: PCP Nurse Practitioner Family; Visit Provider Radiology Diagnostic Radiology | DX: R22.42 Localized swelling, mass and lump, left lower limb (principal) | CPT/HCPCS: 73630 ==

== ENCOUNTER 2025-05-10 08:24 | Outpatient (AMB) | payer MEDICARE, SELFPAY ==
[2025-05-10 08:29] VITALS: BP 152/60; PULSE 80; TEMP 36.8; O2SAT 99; BMI 26.0
--- NOTE | 2025-05-10 08:29 | AM.OFFWIN_ITS ---
Intake Vital Signs 05/10/25 08:29 Height 5 ft 10 in Weight 181 lb 2 oz BMI 26.0 BP 152/60 H Blood Pressure Location Rt brachial Position Sitting Pulse 80 Pulse Source Pulse Oximeter Temp 98.3 F Temp Source Oral Pulse Oximetry (%) 99 Oxygen Delivery Method Room Air Intake Visit Reasons: EP swollen LT foot Patient Tobacco Use Status: Current everyday Tobacco user Product Management Analyst Required: No Allergies No Known Allergies (No Known Allergies*) Allergy (Verified 05/10/25 08:33) Do you need a note to return to daycare/school/sports/work: No HPI HPI Comments History of Present Illness Details History - The patient is a 74-year-old male pres enting with follow-up for cellulitis of the left foot. - History of cellulitis: Initially prese nted with a blister on the left baby toe that broke, leading to a skin infection diagnosed as cellulitis. HE is able to walk now, swelling is down and neuropathy has improved. Overall better but concerned it is still infected. - Treatment history: Initially treated on 03/28 with Doxy and Keflex for 7 days each, followed by additional courses due to persistent symptoms, as follows; 04/11 Augmentin x 10days 04/24 Augmentin x 10days 04/29 Augmentin x 10days - History of prolonged antibiotic use fo r a similar condition in the past, including a PICC line for three months. Physical Exam General: Cooperative, healthy appearing, comfortable, no acute distress and well developed Orientation: Patient oriented x3 Limitations: No limitations Head: Normal to inspection Ears: Hearing grossly normal bilaterally Nose: Normal External nose present Face and sinus: Normal facial exam Mouth: normal, moist oral mucosa Eyes: Appearance normal, both eyes and all related structures Neck: Normal visual inspection and Yes full ROM Respiratory: Normal respiratory effort and able to speak in complete sentences. Skin: no rashes or lesions noted Neuro: Patient oriented x3 Extremities: Moving all extremities normally, left foot with slight erythema distal 3 and 4 metatarsals, no warmth, no drainage, scab on 5th toe. no signs of infection noted. [facility] Medical History Basal cell carcinoma PVD (peripheral vascular disease) Osteomyelitis of great toe of right foot Colon cancer screening declined Surgical History No pertinent past surgical history Family History Father Substance use disorder Mother Substance use disorder Maternal Grandfather Substance use disorder Maternal Grandfather Substance use disorder Social History Housing: Apartment Alcohol intake: current Alcohol intake frequency: does not drink Patient Tobacco Use Status: Current everyday Tobacco user Tobacco use type: Cigarette Cigarette Packs Per Day: 1 Cigarettes Per Day: 20 Years Smoked: 45 e-Cigarette/Vaping Use: Never Used Second Hand Smoke Exposure: No service: No Current occupational status: retired Cognitive needs: No Hearing needs: No Vision needs: No Review of Systems Const All systems reviewed & are unremarkable except as noted in HPI and below Physical Exam Vital Signs: Last Vital Signs Temp 98.3 F 05/10/25 08:29 Pulse 80 05/10/25 08:29 BP 152/60 H 05/10/25 08:29 Pulse Ox 99 05/10/25 08:29 Oxygen Delivery Method Room Air 05/10/25 08:29 BMI result Body Mass Index 26.0 Assessment & Plan Assessment & Plan (1) Diabetes: Code(s): E11.9 - Type 2 diabetes mellitus without complications Qualifiers: Diabetes mellitus type: type 2 Diabetes mellitus rn long term care insulin use: without mcc use Diabetes mellitus complication status: with skin complications Plan: Plan Patient was informed and verbally consented to the use of an ambient scribe for clinic note documentation during this visit - Continue with topical mupirocin ointment application three times daily to the affected area for at least one week to prevent infection from returning. Keep foot clean and dry. Keep blood sugars in range. - Monitor for signs of infection recurrence or worsening symptoms. - Avoid further oral antibiotics unless clinically indicated due to previous extensive use, 7 days of Doxy and 37 days of Augmentin. (2) Foot abrasion, non-infected: Code(s): S90.819A - Abrasion, unspecified foot, initial encounter Plan: as above Medications: New mupirocin 2% 1 appl topical TID 22 grams 0RF Coding Level of Care Code Est Pt Level 3 (17789) Diagnoses Diabetes E11.9 Diabetes mellitus type: type 2 Diabetes mellitus rn long term care insulin use: without rn long term care use Diabetes mellitus complication status: with skin complications Foot abrasion, non-infected N41.977C
--- OUTSIDE RECORDS SUMMARY | 2025-05-10 08:36 | XMS_ITS | Clinical Summary ---
Author Organization [facility] Facility Address [address] [place] [id number] Care Team Providers Care Laundry Laborer Name Role Phone Seandara Ruben BOGGS Primary Care Provider [phone] Social History Tobacco Use Types Packs/Day Years [...] Pneumococcal Vaccine: 50+ Ye ars (1 of 1 - PCV) 2002 Influenza Vaccine (#1) 2025 Hepatitis B Vaccine Aged Out No longe r eligible based on patient's age to complete this topic Insurance [facility] [facility] Complete (LIFE1) UHC Medicare Care Teams Laundry Laborer Relationship Specialty Start Date End Date Ruben Palacios NP 1959 [facility] [place] [id number] PCP - General 10/29/20
== END 2025-05-10 09:31 | disposition home or self-care (01) ==
PROVIDERS: PCP Nurse Practitioner Family; Visit Provider Physician Assistant
DX: E11.9 Type 2 diabetes mellitus without complications (principal); S90.819A Abrasion, unspecified foot, initial encounter

== ENCOUNTER → 2025-05-10 08:24 | Outpatient (BNVA) | payer MEDICARE, SELFPAY | PROVIDERS: PCP Nurse Practitioner Family; Visit Provider Physician Assistant | DX: E11.9 Type 2 diabetes mellitus without complications (principal); S90.812A Abrasion, left foot, initial encounter | CPT/HCPCS: 99212 ==

== ENCOUNTER 2025-05-17 07:25 | Outpatient (AMB) | payer MEDICARE, SELFPAY ==
--- NOTE | 2025-05-17 07:26 | AM.OFFWIN_ITS ---
Intake Vital Signs 05/17/25 07:27 Height 5 ft 10 in Weight 182 lb 6 oz BMI 26.2 BP 142/56 H Blood Pressure Location Rt brachial Position Sitting Pulse 82 Pulse Source Pulse Oximeter Temp 98.5 F Temp Source Oral Pulse Oximetry (%) 98 Oxygen Delivery Method Room Air Intake Visit Reasons: EP Swelling in LT foot still Patient Tobacco Use Status: Current everyday Tobacco user Financial Internship Required: No Allergies No Known Allergies (No Known Allergies*) Allergy (Verified 05/17/25 07:31) Do you need a note to return to daycare/school/sports/work: No HPI HPI Comments 2 History of Present Illness Details History - The patient is a 74-year-old male pres enting with swelling and pain in the left lower extremity. - Swelling present for four weeks, exten ding to ankles. - Pain described as walking on glass. - Multiple antibiotics used without reli ef. - no personal hx of gout but his sister just had it. - Denies fevers Physical Exam General: Cooperative, healthy appearing, comfortable, no acute distress and well developed Orientation: Patient oriented x3 Limitations: No limitations Head: Normal to inspection Ears: Hearing grossly normal bilaterally Nose: Normal External nose present Face and sinus: Normal facial exam Mouth: normal, moist oral mucosa Eyes: Appearance normal, both eyes and all related structures Neck: Normal visual inspection and Yes full ROM Respiratory: Normal respiratory effort and able to speak in complete sentences. Skin: Swollen up to the ankles, a little red, no rashes or lesions noted Neuro: Patient oriented x3 Extremities: Moving all extremities normally, left foot and ankle with edema, distal left foot with erythema towards 4/5 digit, full ROM but with pain PFSH Medical History Basal cell carcinoma PVD (peripheral vascular disease) Osteomyelitis of great toe of right foot Colon cancer screening declined Surgical History No pertinent past surgical history Family History Father Substance use disorder Mother Substance use disorder Maternal Grandfather Substance use disorder Maternal Grandfather Substance use disorder Social History Housing: Apartment Alcohol intake: current Alcohol intake frequency: does not drink Patient Tobacco Use Status: Current everyday Tobacco user Tobacco use type: Cigarette Cigarette Packs Per Day: 1 Cigarettes Per Day: 20 Years Smoked: 45 e-Cigarette/Vaping Use: Never Used Second Hand Smoke Exposure: No service: No Current occupational status: retired Cognitive needs: No Hearing needs: No Vision needs: No Review of Systems Const All systems reviewed & are unremarkable except as noted in HPI and below Physical Exam Vital Signs: Last Vital Signs Temp 98.5 F 05/17/25 07:27 Pulse 82 05/17/25 07:27 BP 142/56 H 05/17/25 07:27 Pulse Ox 98 05/17/25 07:27 Oxygen Delivery Method Room Air 05/17/25 07:27 BMI result Body Mass Index 26.2 Assessment & Plan Assessment & Plan (1) Pain and swelling of toe of left foot: Code(s): M79.675 - Pain in left toe(s); M79.89 - Other specified soft tissue disorders Plan: Plan Patient was informed and verbally consented to the use of an ambient scribe for clinic note documentation during this visit 1. Swelling In The left Lower Extremity - Evaluate for gout with uric acid level. - Consider prednisone if gout confirmed. - if negative, advised we could do one more round of PO abx but if he fails again, he needs ED with possible hospitalization for IV abx - Avoid further oral antibiotics unless clinically indicated due to previous extensive use, 7 days of Doxy and 37 days of Augmentin. Orders: Orders Uric Acid Today M79.675 - Pain in left toe(s), M79.89 - Other specified soft tissue disorders Coding Level of Care Code Est Pt Level 3 (86762) Diagnoses Pain and swelling of toe of left foot M79.675; M79.89
--- OUTSIDE RECORDS SUMMARY | 2025-05-17 07:26 | XMS_ITS | Clinical Summary ---
Author Organization [facility] Facility Address [address] [place] [id number] Care Team Providers Care State Highway Police Officer Name Role Phone Seandara Ruben BOGGS Primary Care Provider [phone] Social History Tobacco Use Types Packs/Day Years [...] this topic Insurance [facility] [employer] [facility] Complete (LIFE1) UHC Medicare Care Teams State Highway Police Officer Relationship Specialty Start Date End Date Ruben Palacios NP 1959 [facility] [place] [id number] PCP - General 10/29/20
[2025-05-17 07:27] VITALS: BP 142/56; PULSE 82; TEMP 36.9; O2SAT 98; BMI 26.2
== END 2025-05-17 07:44 | disposition home or self-care (01) ==
PROVIDERS: PCP Nurse Practitioner Family; Visit Provider Physician Assistant
DX: M79.675 Pain in left toe(s) (principal); M79.89 Other specified soft tissue disorders

== ENCOUNTER 2025-05-17 07:25 | Outpatient (REF) | payer MEDICARE, SELFPAY ==
[2025-05-17 10:43] LABS: Uric Acid 4.5 mg/dL (3.4-7.0)
== END 2025-05-17 07:26 | disposition home or self-care (01) ==
LOC: HO.HMGCLDS 07:25
PROVIDERS: PCP Nurse Practitioner Family; Visit Provider Physician Assistant
DX: M79.89 Other specified soft tissue disorders (principal); M79.675 Pain in left toe(s)
CPT/HCPCS: 36415; 84550; 99212

== ENCOUNTER 2025-05-18 09:05 | Inpatient (IN) | payer MEDICARE, SELFPAY ==
--- NOTE | ~2025-05-18 | XR_ITS ---
EXAMINATION: XR FOOT 3 OR MORE VIEWS LEFT HISTORY: pain, infection, concern for osteo COMPARISON: There is an is made with the prior examination dated 04/29/2025. FINDINGS: Three views of the left foot are submitted. There is irregular demineralization of the proximal, middle, and distal phalanges of the 5th toe highly suggestive of osteomyelitis. A pathologic fracture is not excluded. The joint spaces are preserved. There is mild soft tissue swelling of the 5th toe. There are vascular calcifications. XR/XR foot LT min 3V IMPRESSION: Findings highly suggestive of osteomyelitis involving the proximal, middle, and distal phalanges of the 5th toe. Electronically signed by: Leonard Strickland MD 05/18/2025 10:01 AM EDT
--- NOTE | ~2025-05-18 | IR_ITS ---
CLINICAL HISTORY: IV antibiotics. PROCEDURES: 1. Real-time ultrasound guided access into the right internal jugular vein after documentation of selective vessel patency, and permanent imaging storing in the patient records. 2. Placement of a 5 Fr, 28.5 cm tunneled, single-lumen power injectable Castellanos CLINICIAN: Florentin Easton NP MEDICATIONS: -Lidocaine 1% 10 ml, SQ. -Additional details, please see nursing flowsheet. Complications: None. Estimated blood loss: <5 ml Specimens: None. Contrast: None. Fluoroscopy time: 0.4 min PROCEDURE NOTE: The procedure, risks, benefits, and alternatives were carefully explained to the patient and written informed consent was obtained. The patient was placed supine on the fluoroscopy table. A timeout was performed. The right neck and chest was prepped and draped in usual sterile fashion. Local anesthesia was administered to the right neck access site with lidocaine. Under ultrasound guidance, the right internal jugular vein was accessed with a 5 fr micropuncture set. A permanent ultrasound picture was saved. A peel-away sheath was advanced over the wire. The catheter was measured and cut to length. Next, subcutaneous lidocaine was administered to the chest. Using blunt dissection, a subcutaneous tunnel was created that connects from the upper chest to the venotomy site. The catheter was pulled through the tunnel. The catheter was advanced through the sheath, which was subsequent peeled away. The catheter was tested, flushed, and sutured to the skin with its tip in the cavoatrial junction. The venotomy site was closed with surgical glue. A dry sterile dressing was applied to the chest and the venotomy site. A permanent chest fluoroscopic image was saved demonstrating the catheter tip in the cavoatrial junction. The patient was stable after the procedure was transferred back to the floor. IR/IR cvc insert central tunnel IMPRESSION: Placement of a tunneled single-lumen Castellanos catheter PLAN: -The catheter may be used immediately. This procedure was performed by Florentin Easton NP, and supervised by Sarita King MD Electronically signed by: Ramin King MD 05/24/2025 05:52 PM EDT
[2025-05-18 09:16] VITALS: BP 147/49; PULSE 88; RESP 16; TEMP 36.7; O2SAT 98; BMI 24.6
--- NOTE | 2025-05-18 09:44 | ED.GENADULT ---
HPI - General Adult General Chief complaint: Wound/Laceration Stated complaint: Foot infection, sent by PCP Time Seen by Provider: 05/18/25 09:44 Source: patient Mode of arrival: ambulatory Limitations: no limitations History of Present Illness ED Provider: Flory Chaney PA-C HPI narrative: The patient is a 74-year-old male presenting with swelling and pain of left foot. He initially presented to a walk in clinic on 03/28/25 after wearing new shoes about 2 weeks prior that caused a blister on the left 5th toe that broke and was now bothering him. Initially treated on 03/28 with Doxy and Keflex for 7 days each, followed by additional courses due to persistent symptoms, as follows; 04/11 Augmentin x 10 days, 04/24 Augmentin x 10days, 04/29 Augmentin x 10days. He was seen again at the walk in clinic on 05/10 and was advised to stop oral antibiotics as there were no longer signs of infection and was given topical mupirocin. He was then seen 05/17/25 by the same clinic for swelling of the left foot and was advised to go to the ED. The patient's other past medical history includes hypertension, type II diabetes, basal cell carcinoma, peripheral vascular disease, and osteomyelitis of the great toe of the right foot that required prolonged antibiotic use via PICC line for three months. The patient is a poor historian and says his first time to get his toe check out was a month ago. He is not completely sure when the redness and swelling in his foot began or got worse. He complains of pain with walking but is now used to it so the pain is not as bad. He says he had been putting bandaids on his toe and one day when he took it off his skin peeled off as well. He denies fever, chills, and shortness of breath. Onset (ago): week(s) (about 7) Location: lower extremity (left 5th toe and foot) Pain Consistency: constant Relieving factors: rest Exacerbating factors: movement (walking) Associated symptoms: denies other symptoms Related Data Home Medications ?Medication ?Instructions ?Recorded ?Confirmed pen needle, diabetic 32 gauge x #50 ea 02/14/21 02/06/2510/22 Previous Rx's ?Medication ?Instructions ?Recorded aspirin 81 mg tablet,delayed 81 mg PO DAILY #90 tabs 02/06/25 release atorvastatin 40 mg tablet 40 mg PO DAILY #90 tabs 02/06/25 losartan 100 mg tablet 100 mg PO DAILY 90 days #90 tabs 02/07/25 blood sugar diagnostic #100 ea 04/24/25 lancets 30 gauge #100 ea 04/24/25 metformin 1,000 mg tablet 1,000 mg PO BID #180 tabs 04/26/25 amoxicillin 875 mg-potassium 1 tab PO Q12H 10 days #20 tabs 04/29/25 clavulanate 125 mg tablet mupirocin 2 % topical ointment 1 appl topical TID #22 grams 05/10/25 Allergies Allergy/AdvReac Type Severity Reaction Status Date / Time No Known Allergies (No Known Allergy Verified 05/18/25 09:18 Allergies*) Review of Systems Constitutional: Constitutional: Reports no additional constitutional complaints, Denies chills, Denies fever(s) and Denies night sweats Eyes: Eyes: Reports no additional eye complaints Cardiovascular: Cardiovascular: Reports no additional cardiovascular complaints, Denies chest pain and Denies dyspnea Respiratory: Respiratory: Reports no additional respiratory complaints and Denies dyspnea Gastrointestinal: Gastrointestinal: Reports no additional gastrointestinal complaints Genitourinary: Genitourinary: Reports no additional male genitourinary complaints Musculoskeletal: Musculoskeletal: Reports no additional musculoskeletal complaints and Reports as per HPI Comments: left 5th toe pain, redness, swelling Psychiatric: Psychiatric: Reports no additional psychiatric complaints Endocrine: Endocrine: Reports no additional endocrine complaints Hematologic/Lymphatic: Hematologic/Lymphatic: Reports no additional hematologic/lymphatic complaints Allergic/Immunologic: Allergic/Immunologic: Reports no additional allergic/immunologic complaints COUNT INCLUDES THE [facility] Past Medical History Attestation statement: The following information was validated with the patient. Source: old records reviewed and nursing notes reviewed Medical History Basal cell carcinoma PVD (peripheral vascular disease) Osteomyelitis of great toe of right foot Colon cancer screening declined Surgical History No pertinent past surgical history Family History Family History Father Substance use disorder Mother Substance use disorder Maternal Grandfather Substance use disorder Maternal Grandfather Substance use disorder Social History Social History Housing: Apartment Alcohol intake: current Alcohol intake frequency: does not drink Patient Tobacco Use Status: Current everyday Tobacco user Tobacco use type: Cigarette Cigarette Packs Per Day: 1 Cigarettes Per Day: 20 Years Smoked: 45 Smoked in Last 30 Days: Yes e-Cigarette/Vaping Use: Never Used Second Hand Smoke Exposure: No Substance Use Type: Marijuana Advance Directives: No Advance Directives Information Provided: Yes service: No Current occupational status: retired Cognitive needs: No Hearing needs: No Vision needs: No Physical Exam ED Vital Signs: Vital Signs - 24 hr 05/18/25 09:16 05/18/25 11:42 Temperature 98.1 F Pulse Rate 88 76 Respiratory Rate 16 18 Blood Pressure 147/49 H 141/46 H Pulse Oximetry 98 99 Oxygen Delivery Method Room Air Room Air BMI result Body Mass Index 24.6 Const General: cooperative, comfortable, no acute distress and alert Nutritional Appearance: well nourished Orientation/consciousness: patient oriented x3 HENMT Head: Yes normal to inspection and Yes atraumatic Ears: hearing grossly normal bilaterally and external ears normal General nose exam: Normal external nose present, no nasal discharge noted and no epistaxis Face and sinus: Yes normal facial exam, No abrasion and No laceration Mouth: Normal oral and palatal mucosa present, no drooling and no muffled voice Eyes General: appearance normal, both eyes and all related structures Periorbital: periorbital findings normal Eyelids: Yes eyelids normal Conjunctivae: conjunctivae normal Pupils: Equal, round and reactive pupils present EOM: EOMs intact bilaterally Neck Neck: Yes normal visual inspection and Yes full ROM Resp Effort & Inspection: normal respiratory effort and able to speak in complete sentences Skin Other: Dry, non fluctuant with a scab on the left 5th toe. Area of poorly demarcated erythema extending from the 4th and 5th digits of left foot. General skin exam: erythema Neuro General: patient oriented x3, moves all extremities and CN's II-XI intact bilaterally Cranial nerves: Yes Equal, round and reactive pupils present Cognition (Neuro): normal cognition Extrem Other: Moving all extremities normally, left foot and ankle with edema, full ROM but with pain. General: Yes full ROM and Yes capillary refill normal Left lower extremity: edema Psych Appearance: grossly normal Mental Status: mental status grossly normal Affect: normal affect Attitude: cooperative Thought process: Normal thought process present Thought content: Normal thought content present Insight: Good insight present (Psych) Medications Administered Discontinued Medications Generic Name Dose Route Start Last Admin Trade Name Sophia PRN Reason Stop Dose Admin Piperacillin Sod/Tazobactam 50 mls @ 100 mls/hr 05/18/25 10:24 05/18/25 11:46 Sod 3.375 gm/ Sodium Chloride IV 05/18/25 10:53 Infused ONCE ONE Infusion Vancomycin HCl 2,000 mg in 500 mls @ 250 mls/hr 05/18/25 10:30 05/18/25 11:36 Vancomycin/Ns IV 05/18/25 12:29 250 mls/hr ONCE ONE Administration Morphine Sulfate 4 mg 05/18/25 11:20 05/18/25 11:35 Morphine Sulfate 4 Mg/Ml Cartridge IVPUSH 05/18/25 11:21 4 mg ONCE ONE Administration Protocol Ondansetron HCl 4 mg 05/18/25 11:20 05/18/25 11:35 Ondansetron Hcl 4 Mg/2 Ml Vial IVPUSH 05/18/25 11:21 4 mg ONCE ONE Administration Medical Decision Making Medical Decision Making MDM Narrative: Patient is a 74 year old assigned male at with a history of DM, HTN, right great toe osteomyelitis requiring PICC line and extended IV ABX infusions, tobacco use, and basal cell carcinoma presenting to the emergency department today with continued / worsening left 5th toe pain, redness, and swelling. Patient's physical exam was as noted in the physical exam portion of this note. Left 5th toe appeared necrotic with surrounding erythema and warmth - consistent with infection. Patient's blood work showed an ESR of 25 and CRP of 2.51. Patient's left foot x-ray showed evidence of left 5th toe osteomyelitis. Patient was given IV vancomycin and zosyn. Patient's clinical presentation is not consistent with sepsis (@1137). I spoke with the hospitalist team who agreed to admission for continued antibiotics. I explained my physical exam findings as well as all test results to the patient. I answered all questions asked by the patient. Patient verbalized agreement and understanding with this treatment plan and admission. Differential Diagnosis Differential Diagnoses: The differential diagnosis associated with the presentation includes Cellulitis Left 5th toe osteomyelitis Admission/Observation Consideration of admission/observation: Escalation of care including admission/observation considered Patient admitted as noted in the MDM Rationale portion of this note. Consult Healthcare Provider Management of the patient was discussed with: Hospitalist (agreed to admission as noted in the MDM Rationale portion of this note. ) Lab Data [facility] Lab Attestation statement: I reviewed the patient's lab results. My interpretation of these results are in the MDM Rationale portion of this note. 05/18/25 10:10 05/18/25 10:10 Labs: Lab Results 05/18/25 Range/Units 10:10 WBC 8.1 (4.8-10.8) X10*3/uL RBC 3.88 L (4.60-5.80) X10*6/uL Hgb 11.6 L (14.0-18.0) g/dl Hct 34.1 L (42.0-52.0) % MCV 87.9 (80.0-98.0) fL MCH 29.9 (27.0-33.0) pg MCHC 34.0 (31.0-36.0) g/dl RDW 13.3 (11.0-16.0) % Plt Count 198 (160-400) X10*3/uL MPV 10.0 (9.4-12.4) fL Immature Gran % (Auto) 0.4 (0.0-0.4) % Neut % (Auto) 69.9 (45-73) % Lymph % (Auto) 20.5 (20-40) % [place] % (Auto) 6.9 (2-11) % Eos % (Auto) 1.7 (0-4) % Baso % (Auto) 0.6 (0-2) % Lymph # (Auto) 1.7 (1.2-4.9) X10*3/uL [place] # (Auto) 0.6 (0.1-1.2) X10*3/uL Eos # (Auto) 0.1 (0.0-0.4) X10*3/uL Baso # (Auto) 0.1 (0.0-0.2) X10*3/uL Abs Immat Gran (auto) 0.03 (0.00-0.03) X10*3/uL Absolute Neuts (auto) 5.7 (2.0-8.3) x10*3/uL Absolute Nucleated RBC 0.000 (0.0-0.012) X10*3/uL Nucleated RBC % (auto) 0.0 (0.0-0.2) /100WBC ESR 25 H (0-15) MM/HR Sodium 141 (135-145) mmol/L Potassium 4.3 (3.3-5.1) mmol/L Chloride 106 (96-108) mmol/L Carbon Dioxide 24 (22-29) mmol/L Anion Gap 15 (12-20) BUN 26 H (9-16) mg/dL Creatinine 1.48 H (0.5-1.4) mg/dL Estim Creat Clear Calc 46.5 Estimated GFR 47 Random Glucose 126 H (60-115) mg/dL Estimat Average Glucose 131 mg/dL Hemoglobin A1c % 6.2 H (<6.0) % Lactic Acid 1.0 (0.5-2.0) mmol/L Calcium 8.8 (8.4-10.2) mg/dL Total Bilirubin 0.6 (0.0-1.0) mg/dL AST 19 (5-37) U/L ALT 16 (0-40) U/L Alkaline Phosphatase 88 (39-117) U/L C-Reactive Protein 2.51 H (< or = 0.50) mg/dL Total Protein 6.9 (6.5-8.0) g/dL Albumin 4.2 (3.5-5.0) g/dL Independent Interpretation I performed an independent interpretation of an: Plain X-Ray Interpretation: My interpretation is in agreement with the radiologist's impression of this imaging study. EXAMINATION: XR FOOT 3 OR MORE VIEWS LEFT HISTORY: pain, infection, concern for osteo COMPARISON: There is an is made with the prior examination dated 04/29/2025. FINDINGS: Three views of the left foot are submitted. There is irregular demineralization of the proximal, middle, and distal phalanges of the 5th toe highly suggestive of osteomyelitis. A pathologic fracture is not excluded. The joint spaces are preserved. There is mild soft tissue swelling of the 5th toe. There are vascular calcifications. XR/XR foot LT min 3V IMPRESSION: Findings highly suggestive of osteomyelitis involving the proximal, middle, and distal phalanges of the 5th toe. Electronically signed by: Leonard Strickland MD 05/18/2025 10:01 AM EDT RP Dictated By: Leonard Strickland MD Signed By: Electronically signed by Leonard Strickladn MD 05/18/25 1001 Radiology Impression Discussion of test interpretation with radiology: I have reviewed the radiologist's reading. Chronic Conditions Patient?s care impacted by: Diabetes Critical Care Time Critical Care Time Critical Care Time: Yes Total Critical Care Time: 34 Attestation: I spent 34 minutes of Critical Care Time with this patient. This does not include time spent on separately reported billable procedures. Discharge Plan Discharge Clinical Impression: Osteomyelitis Patient Disposition: Admitted As Inpatient
--- OUTSIDE RECORDS SUMMARY | 2025-05-18 09:59 | XMS_ITS | Clinical Summary ---
Author Organization [facility] Facility Address [address] [place] [id number] Care Team Providers Care Rn Burn Name Role Phone Seandara Ruben BOGGS Primary Care Provider [phone] Social History Tobacco Use Types Packs/Day Years [...] patient's age to complete this topic Insurance [facility] [employer] [facility] Complete (LIFE1) UHC Medicare Care Teams Rn Burn Relationship Specialty Start Date End Date Ruben Palacios NP 1959 [facility] [place] [id number] PCP - General 10/29/20
[2025-05-18 10:19] LABS: MANUAL DIFF FLAG NO
[2025-05-18 10:25] LABS: Hematocrit 34.1 % (42.0-52.0); Hemoglobin 11.6 g/dl (14.0-18.0); Imm Gran Abs Auto 0.03 X10*3/uL (0.00-0.03); Imm Gran Pct Auto 0.4 % (0.0-0.4); Lymphocytes Absolute Auto 1.7 X10*3/uL (1.2-4.9); Mean Corpuscular HGB Conc 34.0 g/dl (31.0-36.0); Mean Corpuscular Hemoglobin 29.9 pg (27.0-33.0); Mean Corpuscular Volume 87.9 fL (80.0-98.0); NRBC Abs Auto 0.000 X10*3/uL (0.0-0.012); NRBC Pct Auto 0.0 /100WBC (0.0-0.2); Platelet Count 198 X10*3/uL (160-400); Red Blood Count 3.88 X10*6/uL (4.60-5.80); White Blood Count 8.1 X10*3/uL (4.8-10.8)
[2025-05-18 10:36] LABS: Alanine Aminotransferase 16 U/L (0-40); Albumin Level 4.2 g/dL (3.5-5.0); Alkaline Phosphatase 88 U/L (39-117); Anion Gap 15 (12-20); Aspartate Amino Transferase 19 U/L (5-37); Blood Urea Nitrogen 26 mg/dL (9-16); Calcium 8.8 mg/dL (8.4-10.2); Carbon Dioxide 24 mmol/L (22-29); Chloride 106 mmol/L (96-108); Creatinine Clr Calc Pharmacy 46.5; Estimated Glomerular Filt Rate 47; Potassium 4.3 mmol/L (3.3-5.1); Sodium 141 mmol/L (135-145); Total Protein 6.9 g/dL (6.5-8.0)
[2025-05-18] MEDS: vancomycin/NS 2,000 MG/500 ML PLAST..BAG 250 MG IV (11:36)
[2025-05-18 11:42] VITALS: BP 141/46; PULSE 76; RESP 18; O2SAT 99
--- NOTE | 2025-05-18 12:06 | PC.NURSE ---
Pt alert and oriented, resting in bed comfortably. lateral side of left foot & pinky toe is red and swollen. He c/o left foot pain mostly with movement. He was medicated as charted. Has vancomycin infusing via 20g IV in right forearm. Breathing unlabored. Skin p/w/d. Plan of care on going.
--- NOTE | 2025-05-18 12:25 | P.HPHOSP_ITS ---
History of Present Illness Date of Service: 05/18/25 Attending physician on admission: Ishan Goff Chief Complaint: Left foot infection This is a 74-year-old male with history of diabetes who presents to the emergency department due to left foot infection. He states he has been on multiple courses of oral antibiotics over the past month and a half with no significant improvement. He continues to have redness of the left 5th toe. He denies any associated fever or chills. He can not recall the names of any of the antibiotics he has taken. In the emergency department he had x-ray which was strongly suspicious of osteomyelitis. He was afebrile, with no leukocytosis. Inflammatory markers mildly elevated with ESR of 25 and CRP of 2.51. Patient received IV antibiotics and will be admitted to the hospital for further management. Review of Systems 2 Review of Systems: Yes all other systems are reviewed and are negative Constitutional: Constitutional: Denies chills and Denies fever(s) Cardiovascular: Cardiovascular: Denies chest pain [facility] Medical History Basal cell carcinoma PVD (peripheral vascular disease) Osteomyelitis of great toe of right foot Colon cancer screening declined Family History Father Substance use disorder Mother Substance use disorder Maternal Grandfather Substance use disorder Maternal Grandfather Substance use disorder Surgical History No pertinent past surgical history Social History Housing: Apartment Alcohol intake: current Alcohol intake frequency: does not drink Patient Tobacco Use Status: Current everyday Tobacco user Tobacco use type: Cigarette Cigarette Packs Per Day: 1 Cigarettes Per Day: 20 Years Smoked: 45 Smoked in Last 30 Days: Yes e-Cigarette/Vaping Use: Never Used Second Hand Smoke Exposure: No Substance Use Type: Marijuana Advance Directives: No Advance Directives Information Provided: Yes service: No Current occupational status: retired Cognitive needs: No Hearing needs: No Vision needs: No Meds Allergies Allergy/AdvReac Type Severity Reaction Status Date / Time No Known Allergies (No Known Allergy Verified 05/18/25 09:18 Allergies*) Active Medications: Current Medications Acetaminophen (Acetaminophen 325 Mg Tablet) 650 mg PO Q6H PRN PRN Reason: Pain, Mild 1-3,fever,headache Calcium Carbonate (Calcium Carbonate 750 Mg Tab.Chew) 750 mg PO Q4H PRN PRN Reason: Heartburn Enoxaparin Sodium (Enoxaparin Sodium 40 Mg/0.4 Ml Syringe) 40 mg SUBCUT Q24H [facility] Vancomycin HCl (Vancomycin/Ns) 2,000 mg in 500 mls @ 250 mls/hr IV ONCE ONE Stop: 05/18/25 12:29 Last Admin: 05/18/25 11:36 Dose: 250 mls/hr Magnesium Hydroxide (Milk Of Magnesia 30 Ml Oral.Susp) 30 ml PO DAILY PRN PRN Reason: Constipation Melatonin (Melatonin 3 Mg Tablet) 6 mg PO BEDTIME PRN PRN Reason: Insomnia Morphine Sulfate (Morphine Sulfate 4 Mg/Ml Cartridge) 2 mg IVPUSH Q4H PRN; Protocol PRN Reason: Pain, Severe (Pain Scale 7-10) Oxycodone HCl (Oxycodone Hcl Immed Release 5 Mg Tablet) 5 mg PO Q6H PRN PRN Reason: Pain, Moderate(Pain Scale 4-6) Sodium Chloride (0.9 % Sodium Chloride Flush 3 Ml Syringe) 3 ml IVFLUSH QSHIFT [facility] Home Medications ?Medication ?Instructions ?Recorded ?Confirmed ?Last Taken ?Type pen needle, diabetic 32 gauge x #50 ea 02/14/21 Unknown History 10/22 Physical Exam 2 Vital Signs and Narrative: Vital Signs: Last Vital Signs Temp 98.1 F 05/18/25 09:16 Pulse 76 05/18/25 11:42 Resp 18 05/18/25 11:42 BP 141/46 H 05/18/25 11:42 Pulse Ox 99 05/18/25 11:42 O2 Del Method Room Air 05/18/25 11:42 BMI result Body Mass Index 24.6 Const: Other: Constitutional-cooperative, comfortable, in no acute distress. Alert and oriented x3 Respiratory-no respiratory distress, able to speak in full sentences Cardiovascular-regular rate GI abdomen soft, nontender, nondistended Musculoskeletal-able to move all 4 extremities spontaneously Skin see imaging below Neuro grossly intact Skin: Other: Results Labs 05/18/25 10:10 05/18/25 10:10 Labs: Laboratory Results - last 24 hr 05/18/25 10:10 MCV 87.9 MCH 29.9 MCHC 34.0 RDW 13.3 Plt Count 198 MPV 10.0 Immature Gran % (Auto) 0.4 Neut % (Auto) 69.9 Lymph % (Auto) 20.5 [place] % (Auto) 6.9 Eos % (Auto) 1.7 Baso % (Auto) 0.6 Lymph # (Auto) 1.7 [place] # (Auto) 0.6 Eos # (Auto) 0.1 Baso # (Auto) 0.1 Abs Immat Gran (auto) 0.03 Absolute Neuts (auto) 5.7 Absolute Nucleated RBC 0.000 Nucleated RBC % (auto) 0.0 ESR 25 H Anion Gap 15 Estim Creat Clear Calc 46.5 Estimated GFR 47 Random Glucose 126 H Lactic Acid 1.0 Calcium 8.8 Total Bilirubin 0.6 AST 19 ALT 16 Alkaline Phosphatase 88 C-Reactive Protein 2.51 H Total Protein 6.9 Albumin 4.2 Imaging Radiologist's Impressions: Impressions Foot X-Ray 05/18/25 08:45 IMPRESSION: Findings highly suggestive of osteomyelitis involving the proximal, middle, and distal phalanges of the 5th toe. Electronically signed by: Leonard Strickland MD 05/18/2025 10:01 AM EDT RP Assessment and Plan (1) Cellulitis: Qualifiers: Site of cellulitis: extremity Site of cellulitis of extremity: lower extremity Laterality: left Qualified Code(s): L03.116 - Cellulitis of left lower limb Status: Acute (2) Osteomyelitis: Qualifiers: Laterality: left Osteomyelitis location: foot Osteomyelitis type: u nspecified type Qualified Code(s): M86.9 - Osteomyelitis, unspecified Status: Acute Plan This is a 74-year-old male with history of diabetes, hypertension, hyperlipidemia who presents to the emergency department with left 5th toe redness and swelling after failing multiple courses of oral antibiotics with the imaging concerning for acute osteomyelitis Left foot cellulitis with concern for left 5th toe acute osteomyelitis No sepsis Although ESR only 25 imaging strongly suspicious for osteomyelitis therefore will obtain MRI of foot for definitive diagnosis Continue broad-spectrum antibiotics for now with vancomycin and Zosyn Infectious disease consult General surgery consult blood cultures pending Diabetes Check HbA1c Hold metformin SSI, diabetic diet Hypertension Continue baseline medication when med reconciliation has been completed Hyperlipidemia Continue statin when med reconciliation has been completed CKD 3 Renal function at baseline Tobacco dependence Smoking cessation advised Has declined NRT at this time Med reconciliation pending at the time of admission DVT prophylaxis-Lovenox Code status-full code Patient will likely require 2 midnight stay in the hospital for management of cellulitis with concern for acute osteomyelitis requiring IV antibiotics and specialist evaluation Quality Stroke Does the patient have a stroke diagnosis?: No VTE Prior VTE?: No VTE Risk Level:: Medical - moderate - high VTE Device Contraindication: N/A - Device Ordered VTE Drug Contraindication: N/A - Med Ordered
[2025-05-18 13:14] LABS: Hemoglobin A1C 137.8295 umol/L; Total Hemoglobin (HGBA1C) 3100.7223 umol/L
--- NOTE | 2025-05-18 13:20 | P.CONGS_ITS ---
History of Present Illness Consult details Consult date: 05/18/25 <Bong Maria PA-C - Last Filed: 05/18/25 13:38> Reason for consult: wound care (left 5th toe wound) <Bong Maria PA-C - Last Filed: 05/18/25 13:38> Narrative: 74-year-old male with a history of LVH, HTN, diabetes seen in consult for left 5th toe wound with associated cellulitis and concern for osteomyelitis. He states this began about a month ago when he noticed a blister on his toe after wearing new shoes at work. The wound became infected and he was following with his primary care for management of the infection. He has received multiple rounds of antibiotics including 47 days of Augmentin, 7 days of doxycycline and failed outpatient management of this wound. He continues to have pain swelling of the lower extremity with associated cellulitis of the toes and feet. He denies fevers or chills. He states he had a similar issue with the great toe of the right foot about 3 years ago, was treated for osteomyelitis of this toe but was able to salvage without amputation, had a PICC line for 3 months for daily abx, has been stable since he was started on vanco and zosyn in ED, will be admitted for further managment <Bong Maria PA-C - Last Filed: 05/18/25 13:38> Review of Systems 2 Review of Systems: Yes all other systems are reviewed and are negative < Bong Maria PA-C - Last Filed: 05/18/25 13:38> [facility] Past Medical History Medical History: Medical History Basal cell carcinoma PVD (peripheral vascular disease) Osteomyelitis of great toe of right foot Colon cancer screening declined <Bong Maria PA-C - Last Filed: 05/18/25 13:38> Family History Family History: Family History Father Substance use disorder Mother Substance use disorder Maternal Grandfather Substance use disorder Maternal Grandfather Substance use disorder <Bong Maria PA-C - Last Filed: 05/18/25 13:38> Surgical History Surgical History: Surgical History No pertinent past surgical history <Bong Maria PA-C - Last Filed: 05/18/25 13:38> Social History Social History: Social History Housing: Apartment Alcohol intake: current Alcohol intake frequency: does not drink Patient Tobacco Use Status: Current everyday Tobacco user Tobacco use type: Cigarette Cigarette Packs Per Day: 1 Cigarettes Per Day: 20 Years Smoked: 45 Smoked in Last 30 Days: Yes e-Cigarette/Vaping Use: Never Used Second Hand Smoke Exposure: No Substance Use Type: Marijuana Advance Directives: No Advance Directives Information Provided: Yes service: No Current occupational status: retired Cognitive needs: No Hearing needs: No Vision needs: No <Bong Maria PA-C - Last Filed: 05/18/25 13:38> Meds Allergies/Adverse reactions: Allergies Allergy/AdvReac Type Severity Reaction Status Date / Time No Known Allergies (No Known Allergy Verified 05/18/25 09:18 Allergies*) <Bong Maria PA-C - Last Filed: 05/18/25 13:38> Active Medications: Current Medications Acetaminophen (Acetaminophen 325 Mg Tablet) 650 mg PO Q6H PRN PRN Reason: Pain, Mild 1-3,fever,headache Calcium Carbonate (Calcium Carbonate 750 Mg Tab.Chew) 750 mg PO Q4H PRN PRN Reason: Heartburn Dextrose (Dextrose 50 % 25 Gm/50 Ml Syringe) 25 gm IVPUSH Q15M PRN; Protocol PRN Reason: per Hypoglycemia Standing Ord. Enoxaparin Sodium (Enoxaparin Sodium 40 Mg/0.4 Ml Syringe) 40 mg SUBCUT Q24H [facility] Glucose (Glucose Gel 15 Gm Gel..Gram.) 15 gm PO Q15M PRN; Protocol PRN Reason: per Hypoglycemia Standing Ord. Piperacillin Sod/Tazobactam (Sod 3.375 gm/ Sodium Chloride) 50 mls @ 100 mls/hr IV Q6H [facility] Insulin Human Lispro (Insulin Lispro 100 Unit/Ml 3 Ml Vial) 0 unit SUBCUT QIDACHS [facility]; Protocol Magnesium Hydroxide (Milk Of Magnesia 30 Ml Oral.Susp) 30 ml PO DAILY PRN PRN Reason: Constipation Melatonin (Melatonin 3 Mg Tablet) 6 mg PO BEDTIME PRN PRN Reason: Insomnia Morphine Sulfate (Morphine Sulfate 4 Mg/Ml Cartridge) 2 mg IVPUSH Q4H PRN; Protocol PRN Reason: Pain, Severe (Pain Scale 7-10) Oxycodone HCl (Oxycodone Hcl Immed Release 5 Mg Tablet) 5 mg PO Q6H PRN PRN Reason: Pain, Moderate(Pain Scale 4-6) Pharmacy Consult (Consult Rx Vancomycin Dosing) 1 each MISCELLANE DAILY PRN PRN Reason: Consult order Sodium Chloride (0.9 % Sodium Chloride Flush 3 Ml Syringe) 3 ml IVFLUSH QSHIFT [facility] <Bong Maria PA-C - Last Filed: 05/18/25 13:38> Home medications: Home Medications ?Medication ?Instructions ?Recorded ?Confirmed ?Last Taken ?Type pen needle, diabetic 32 gauge x #50 ea 02/14/21 Unknown History 10/22 aspirin 81 mg tablet,delayed 81 mg PO DAILY 05/18/25 0 05/18/25 Unknown History release metformin 1,000 mg tablet 1,000 mg PO DAILY 05/18/25 0 05/18/25 05/18/25 History <Bong Maria PA-C - Last Filed: 05/18/25 13:38> Physical Exam 2 Vital Signs: Vital Signs: Last Vital Signs Temp 98.1 F 05/18/25 09:16 Pulse 76 05/18/25 11:42 Resp 18 05/18/25 11:42 BP 141/46 H 05/18/25 11:42 Pulse Ox 99 05/18/25 11:42 O2 Del Method Room Air 05/18/25 11:42 BMI result Body Mass Index 24.6 <MARILU Ross Last Filed: 05/18/25 13:38> Const: General: comfortable and no acute distress <MARILU Ross Last Filed: 05/18/25 13:38> Orientation/consciousness: patient oriented x3 <MARILU Ross Last Filed: 05/18/25 13:38> Resp: Effort & Inspection: normal respiratory effort and able to speak in complete sentences <MARILU Ross Last Filed: 05/18/25 13:38> Neuro: General: patient oriented x3 <MARILU Ross Last Filed: 05/18/25 13:38> Extrem: Other: Left 5th toe: 1.5x1.5 cm eschar with surrounding erythema and edema of the 4th and 5th toe. Painful to touch <MARILU Ross Last Filed: 05/18/25 13:38> Results Labs Result diagrams: 05/18/25 10:10 05/18/25 10:10 <MARILU Ross Last Filed: 05/18/25 13:38> Labs: Abnormal lab results 05/18/25 Range/Units 10:10 RBC 3.88 L (4.60-5.80) X10*6/uL Hgb 11.6 L (14.0-18.0) g/dl Hct 34.1 L (42.0-52.0) % ESR 25 H (0-15) MM/HR BUN 26 H (9-16) mg/dL Creatinine 1.48 H (0.5-1.4) mg/dL Random Glucose 126 H (60-115) mg/dL Hemoglobin A1c % 6.2 H (<6.0) % C-Reactive Protein 2.51 H (< or = 0.50) mg/dL Short CBC 05/18/25 Range/Units 10:10 WBC 8.1 (4.8-10.8) X10*3/uL Hgb 11.6 L (14.0-18.0) g/dl Hct 34.1 L (42.0-52.0) % Plt Count 198 (160-400) X10*3/uL BMP 05/18/25 10:10 Sodium 141 Potassium 4.3 Chloride 106 Carbon Dioxide 24 BUN 26 H Creatinine 1.48 H Calcium 8.8 Liver Function 05/18/25 Range/Units 10:10 Total Bilirubin 0.6 (0.0-1.0) mg/dL AST 19 (5-37) U/L ALT 16 (0-40) U/L Alkaline Phosphatase 88 (39-117) U/L Albumin 4.2 (3.5-5.0) g/dL All other labs normal. <MARILU Ross Last Filed: 05/18/25 13:38> Assessment and Plan (1) Cellulitis: Qualifiers: Laterality: left Site of cellulitis: extremity Site of cellulitis of extremity: lower extremity Qualified Code(s): L03.116 - Cellulitis of left lower limb <Bong Maria PA-C - Last Filed: 05/18/25 13:38> Status: Acute <Bong Maria PA-C - Last Filed: 05/18/25 13:38> (2) Osteomyelitis: Qualifiers: Laterality: left Osteomyelitis location: foot O steomyelitis type: unspecified type Qualified Code(s): M86.9 - Osteomyelitis, unspecified <Bong Maria PA-C - Last Filed: 05/18/25 13:38> Status: Acute <Bong Maria PA-C - Last Filed: 05/18/25 13:38> (3) Pain and swelling of toe of left foot: Status: Acute <Bong Maria PA-C - Last Filed: 05/18/25 13:38> 74-year-old male with a history of LVH, HTN, diabetes seen in consult for left 5th toe wound with associated cellulitis and concern for osteomyelitis. He has had this wound for about a month and has failed extensive outpt abx. He contineus to have pain, swelling and localized cellulitis of the foot. Inflammatory markers are elevated, there is no leukocytosis. Xray findings were concerning for osteomyelitis. He was admitted for management with IV antibiotics and wound care. Started on vanco and zosyn in the ED. On exam there is a 1.5x1.5 cm area of eschar with localizeed cellulitis extending up the foot. A bedside debridement was attempted but was baorted due to pain. A wet to dry dressing was placed in hopes that this will soften the eschar for a bedside debridement tomorrow. MRI is penidng for confirmation of osteomyelitis ID consult pending, continue empiric abx MRI pending will attempt debridement tomorrow glucose control, most recent A1C 6.1 <Bong Maria PA-C - Last Filed: 05/18/25 13:38> 74-year-old male with a history of LVH, HTN, diabetes seen in consult for left 5th toe wound with associated cellulitis and concern for osteomyelitis. He has had this wound for about a month and has failed extensive outpt abx. He contineus to have pain, swelling and localized cellulitis of the foot. Inflammatory markers are elevated, there is no leukocytosis. Xray findings were concerning for osteomyelitis. He was admitted for management with IV antibiotics and wound care. Started on vanco and zosyn in the ED. On exam there is a 1.5x1.5 cm area of eschar with localized cellulitis extending up the foot. A bedside debridement was attempted but was baorted due to pain. A wet to dry dressing was placed in hopes that this will soften the eschar for a bedside debridement tomorrow. MRI is penidng for confirmation of osteomyelitis ID consult pending, continue empiric abx MRI pending will attempt debridement tomorrow glucose control, most recent A1C 6.1 Patient seen and examined and I concur with the above assessment and plan. Patient has a previous history of a right foot infection at the great toe which healed after a course of IV antibiotics via PICC line. Current episode started after wearing new shoes and increased in severity with the past several days with redness extending up the foot. Agree with the need for debridement and MRI for possible osteomyelitis. We will continue to follow. <Ruben Fitzgerald MD - Last Filed: 05/18/25 14:54> Procedures Date of Service Date of Service: 05/18/25 <Bong Maria PA-C - Last Filed: 05/18/25 13:38> 05/18/25 <Ruben Fitzgerald MD - Last Filed: 05/18/25 14:54>
--- NOTE | 2025-05-18 14:02 | PC.NURSE ---
Addendum entered by Melissa Ro RN 05/18/25 14:02: Patient is a 74-year-old male with a history of LVH, HTN, diabetes seen in consult for left 5th toe wound with associated cellulitis and concern for osteomyelitis. He states this began about a month ago when he noticed a blister on his toe after wearing new shoes at work. The wound became infected and he was following with his primary care for management of the infection. He has received multiple rounds of antibiotics including 47 days of Augmentin, 7 days of doxycycline and failed outpatient management of this wound. He continues to have pain swelling of the lower extremity with associated cellulitis of the toes and feet. Patient is alert and oriented. Lungs coarse. History of smoking. Respirations even and non-labored. Abdomen soft, non-tender with positive bowel sounds. Dressing to left foot cd@i. Original Note: Medical History Basal cell carcinoma PVD (peripheral vascular disease) Osteomyelitis of great toe of right foot Colon cancer screening declined
[2025-05-18 14:05] VITALS: BP 172/69; PULSE 70; RESP 14; TEMP 36.6; O2SAT 99
--- NOTE | 2025-05-18 14:06 | PHA.PROG ---
Admission Date/Time: May 18, 2025 12:08 Indication: skin + skin structure Weight in k.7 kg Adjusted body weight in Kg: [place] body weight in Kg: Obesity Dosing Indication % IBW: BMI 24.6 Serum Creatinine - Last 168 Hours 05/18/25 10:10 Creatinine 1.48 H Estimated CrCl and GFR - Last 168 Hours 05/18/25 10:10 Estim Creat Clear Calc 46.5 Estimated GFR 47 Vancomycin Loading Dose: 2000mg X1 Current Vancomycin Dosing Regimen: 1000mg Q24H Vancomycin Monitoring using AUC goal of 400 - 600 range with trough as surrogate marker: 454 Date and Time for next Vancomycin Level to be drawn: 05/19 @1000 Pharmacist Comments on Vancomycin Plan: getting level before 2nd dose as patient's renal function is not great. BMI normal, pt on older side, trying to be cautious and adjust as needed tomorrow. Vancomycin dosing will take advantage of [employer] as a clinical decision support tool that uses Bayesian modeling to calculate individual patient's pharmacokinetic parameters and forecast the patient's drug concentration time course with the target goal AUC 24 range of 400 - 600 mg/L/hr.
--- NOTE | 2025-05-18 14:24 | PHA.MEDREC ---
Addendum entered by [place] Cornell RPh 05/18/25 14:30: Reviewed by [facility] Original Note: Pharmacy Consult ? Medication Reconciliation Pharmacy has completed the medication reconciliation.Spoke to patient. He confirmed only taking atorvastatin 40mg , losartan 100mg, and metformin 1000mg. patient states he takes metformin once a day even though claims state twice a day and that he takes aspirin as needed instead of daily. medications last taken this morning.
[2025-05-18] MEDS: 0.9 % Sodium Chloride Flush 3 ML SYRINGE IVFLUSH (16:12)
[2025-05-18 16:18] LABS: Glucose, Whole Blood 85 mg/dL (60-115)
[2025-05-18 20:03] VITALS: BP 158/60; PULSE 64; RESP 18; TEMP 36.5; O2SAT 99
--- NOTE | 2025-05-18 20:04 | PC.NURSE ---
05/18/251999 MRI screening form completed and faxed to MRI. Per MRI pt will have MRI of left foot tomorrow. During screening patient admits to having history of claustrophobia but reports as long as he is going into MRI machine foot first he will not have any difficulties with claustrophobia.
[2025-05-18 20:09] VITALS: BMI 24.6
[2025-05-18 20:11] VITALS: BP 155/69; PULSE 65; RESP 18; TEMP 36.3; O2SAT 99
[2025-05-18 20:18] LABS: Glucose, Whole Blood 83 mg/dL (60-115)
[2025-05-19] MEDS: 0.9 % Sodium Chloride Flush 3 ML SYRINGE IVFLUSH ×4 (00:41→20:27)
[2025-05-19 03:47] VITALS: BP 147/67; PULSE 66; RESP 18; TEMP 36.6; O2SAT 98
[2025-05-19 06:07] VITALS: BP 169/74; PULSE 72
[2025-05-19 06:23] LABS: MANUAL DIFF FLAG NO
[2025-05-19 06:26] LABS: Hematocrit 33.2 % (42.0-52.0); Hemoglobin 11.4 g/dl (14.0-18.0); Imm Gran Abs Auto 0.02 X10*3/uL (0.00-0.03); Imm Gran Pct Auto 0.3 % (0.0-0.4); Lymphocytes Absolute Auto 1.9 X10*3/uL (1.2-4.9); Mean Corpuscular HGB Conc 34.3 g/dl (31.0-36.0); Mean Corpuscular Hemoglobin 30.0 pg (27.0-33.0); Mean Corpuscular Volume 87.4 fL (80.0-98.0); NRBC Abs Auto 0.000 X10*3/uL (0.0-0.012); NRBC Pct Auto 0.0 /100WBC (0.0-0.2); Platelet Count 184 X10*3/uL (160-400); Red Blood Count 3.80 X10*6/uL (4.60-5.80); White Blood Count 7.7 X10*3/uL (4.8-10.8)
[2025-05-19 06:40] LABS: Anion Gap 13 (12-20); Blood Urea Nitrogen 23 mg/dL (9-16); Calcium 8.4 mg/dL (8.4-10.2); Carbon Dioxide 23 mmol/L (22-29); Chloride 107 mmol/L (96-108); Creatinine Clr Calc Pharmacy 47.5; Estimated Glomerular Filt Rate 48; Potassium 4.3 mmol/L (3.3-5.1); Sodium 139 mmol/L (135-145)
[2025-05-19 07:29] LABS: Glucose, Whole Blood 91 mg/dL (60-115)
[2025-05-19 08:07] VITALS: BP 182/76; PULSE 68; RESP 20; TEMP 36.3; O2SAT 99
[2025-05-19] MEDS: Aspirin Enteric Coated 81 MG TABLET.DR PO (08:18)
--- NOTE | 2025-05-19 10:45 | PM.PNGS ---
Subjective Subjective Date of Service: 05/19/25 Interval history: Patient reports he had a difficult night sleeping due to pain in the foot. Denies fevers or chills Physical Exam Vital Signs: Vital Signs: Last Vital Signs Temp 97.3 F 05/19/25 08:07 Pulse 68 05/19/25 08:07 Resp 20 05/19/25 08:07 BP 182/76 H 05/19/25 08:07 Pulse Ox 99 05/19/25 08:07 O2 Del Method Room Air 05/19/25 08:07 BMI result Body Mass Index 24.6 Const: General: comfortable and no acute distress Orientation/consciousness: patient oriented x3 Resp: Effort & Inspection: normal respiratory effort and able to speak in complete sentences Neuro: General: patient oriented x3 Extrem: Other: Left 5th toe: 1.5x1.5 cm eschar with surrounding erythema and edema of the 4th and 5th toe. Painful to touch. 1+ edema extending the the distal tibia. Objective Data Active Medications Acetaminophen (Acetaminophen 325 Mg Tablet) 650 mg PO Q6H PRN PRN Reason: Pain, Mild 1-3,fever,headache Aspirin (Aspirin Enteric Coated 81 Mg Tablet.) 81 mg PO DAILY [facility] Last Admin: 05/19/25 08:18 Dose: 81 mg Documented By: ISABELA Atorvastatin Calcium (Atorvastatin Calcium 40 Mg Tablet) 40 mg PO DAILY [facility] Last Admin: 05/19/25 08:18 Dose: 40 mg Documented By: ISABELA Calcium Carbonate (Calcium Carbonate 750 Mg Tab.Chew) 750 mg PO Q4H PRN PRN Reason: Heartburn Dextrose (Dextrose 50 % 25 Gm/50 Ml Syringe) 25 gm IVPUSH Q15M PRN; Protocol PRN Reason: per Hypoglycemia Standing Ord. Docusate Sodium (Docusate Sodium 100 Mg Capsule) 100 mg PO BEDTIME [facility] Last Admin: 05/18/25 20:26 Dose: Not Given Documented By: FAMILIA Non-Admin Reason: Patient Refused Enoxaparin Sodium (Enoxaparin Sodium 40 Mg/0.4 Ml Syringe) 40 mg SUBCUT Q24H [facility] Last Admin: 05/18/25 13:58 Dose: 40 mg Documented By: SCIRPOS Glucose (Glucose Gel 15 Gm Gel..Gram.) 15 gm PO Q15M PRN; Protocol PRN Reason: per Hypoglycemia Standing Ord. Piperacillin Sod/Tazobactam (Sod 3.375 gm/ Sodium Chloride) 50 mls @ 100 mls/hr IV Q6H [facility] Last Infusion: 05/19/25 06:47 Dose: Infused Documented By: GERRY Vancomycin HCl 1,000 mg/ (Sodium Chloride) 270 mls @ 270 mls/hr IV Q24H [facility] Insulin Human Lispro (Insulin Lispro 100 Unit/Ml 3 Ml Vial) 0 unit SUBCUT QIDACHS [facility]; Protocol Last Admin: 05/19/25 08:20 Dose: Not Given Documented By: ISABELA Non-Admin Reason: No Insulin Coverage Losartan Potassium (Losartan Potassium 50 Mg Tablet) 100 mg PO DAILY [facility]; Protocol Last Admin: 05/19/25 08:18 Dose: 100 mg Documented By: ISABELA Magnesium Hydroxide (Milk Of Magnesia 30 Ml Oral.Susp) 30 ml PO DAILY PRN PRN Reason: Constipation Melatonin (Melatonin 3 Mg Tablet) 6 mg PO BEDTIME PRN PRN Reason: Insomnia Morphine Sulfate (Morphine Sulfate 4 Mg/Ml Cartridge) 4 mg IVPUSH Q4H PRN; Protocol PRN Reason: Pain, Severe (Pain Scale 7-10) Oxycodone HCl (Oxycodone Hcl Immed Release 5 Mg Tablet) 5 mg PO Q6H PRN PRN Reason: Pain, Moderate(Pain Scale 4-6) Pharmacy Consult (Consult Rx Vancomycin Dosing) 1 each MISCELLANE DAILY PRN PRN Reason: Consult order Sodium Chloride (0.9 % Sodium Chloride Flush 3 Ml Syringe) 3 ml IVFLUSH QSHIFT [facility] Last Admin: 05/19/25 08:19 Dose: 3 ml Documented By: ISABELA Labs 05/19/25 05:58 05/19/25 05:58 Labs: Laboratory Results - last 24 hr 05/18/25 05/18/25 05/18/25 10:10 16:14 20:14 MCV MCH MCHC RDW Plt Count MPV Immature Gran % (Auto) Neut % (Auto) Lymph % (Auto) [place] % (Auto) Eos % (Auto) Baso % (Auto) Lymph # (Auto) [place] # (Auto) Eos # (Auto) Baso # (Auto) Abs Immat Gran (auto) Absolute Neuts (auto) Absolute Nucleated RBC Nucleated RBC % (auto) ESR 25 H Anion Gap Estim Creat Clear Calc Estimated GFR POC Glucose 85 83 Random Glucose Estimat Average Glucose 131 Hemoglobin A1c % 6.2 H Calcium Random Vancomycin 05/19/25 05/19/25 05/19/25 05:58 07:20 09:52 MCV 87.4 MCH 30.0 MCHC 34.3 RDW 13.2 Plt Count 184 MPV 10.1 Immature Gran % (Auto) 0.3 Neut % (Auto) 64.3 Lymph % (Auto) 24.0 [place] % (Auto) 6.9 Eos % (Auto) 3.5 Baso % (Auto) 1.0 Lymph # (Auto) 1.9 [place] # (Auto) 0.5 Eos # (Auto) 0.3 Baso # (Auto) 0.1 Abs Immat Gran (auto) 0.02 Absolute Neuts (auto) 5.0 Absolute Nucleated RBC 0.000 Nucleated RBC % (auto) 0.0 ESR Anion Gap 13 Estim Creat Clear Calc 47.5 Estimated GFR 48 POC Glucose 91 Random Glucose 116 H Estimat Average Glucose Hemoglobin A1c % Calcium 8.4 Random Vancomycin 10.3 L Procedures Date of Service Date of Service: 05/19/25 Progress Note: A&P Assessment and plan (1) Osteomyelitis: Status: Acute (2) Pain and swelling of toe of left foot: Status: Acute Plan Year old male admitted for management of left 5th toe wound with possible osteomyelitis. Patient experiencing more pain today, continues to denies fever or chills. On exam there was some improvement of the erythema surrounding the 4th and 5th toes, however it is more tender to touch today, there remains the 1.5 x 1.5 cm black eschar over the wound. Patient was in too much pain to attempt sharp debridement at bedside. We will continue with wet-to-dry dressings. I recommended that the patient continue to keep the leg elevated to help facilitate drainage of edema, I expect that improving edema could help with his pain. MRI today Continue antibiotics Wet-to-dry dressings, wrap with Kerlix. Would benefit from sharp debridement + silver alginate when able to tolerate Time Spent With Patient Time: Total time managing care of this patient today ____ minutes. Quality Stroke Does the patient have a stroke diagnosis?: No VTE Prior VTE?: No VTE Risk Level:: Medical - moderate - high VTE Device Contraindication: N/A - Device Ordered VTE Drug Contraindication: N/A - Med Ordered
[2025-05-19 11:06] VITALS: BP 170/74
[2025-05-19] MEDS: oxyCODONE HCl Immed Release 5 MG TABLET PO (11:06)
[2025-05-19 11:19] LABS: Glucose, Whole Blood 143 mg/dL (60-115)
--- NOTE | 2025-05-19 12:41 | W.PM.IDCN ---
History of Present Illness Data of Consult Service Date: 05/19/25 Requesting physician: Ayah Rodrigues Primary Care Provider: Ruben Palacios MANAGER DIABETES- HPI Reason for consult: left foot infection He presents with swelling and pain left foot for last month. He had blister and pain on 6/10 left foot after walking on new shoes He has been on Keflex and Doxycycline and has had no improvement. He has XRay OM proximal,mid,distal aspects of fifth toe. He has no MRSA. Review of Systems Review of Systems: Yes all other systems are reviewed and are negative [facility] Past Medical History Medical History (Updated 05/19/25 @ 12:52 by Tatum Bailey MD) Osteomyelitis Basal cell carcinoma PVD (peripheral vascular disease) Osteomyelitis of great toe of right foot Colon cancer screening declined Family History Family History Father Substance use disorder Mother Substance use disorder Maternal Grandfather Substance use disorder Maternal Grandfather Substance use disorder Surgical History Surgical History No pertinent past surgical history Social History Social History Household Members: None Housing: House Do you presently have visiting nurse or other home services: No Alcohol intake: current Alcohol intake frequency: does not drink Patient Tobacco Use Status: Current everyday Tobacco user Tobacco use type: Cigarette Cigarette Packs Per Day: 1 Cigarettes Per Day: 20.0 Years Smoked: 45 e-Cigarette/Vaping Use: Never Used Second Hand Smoke Exposure: No Substance Use Type: Marijuana service: No Current occupational status: retired Cognitive needs: No Hearing needs: No Vision needs: No Meds Allergies Allergy/AdvReac Type Severity Reaction Status Date / Time No Known Allergies (No Known Allergy Verified 05/18/25 09:18 Allergies*) Active Medications: Current Medications Acetaminophen (Acetaminophen 325 Mg Tablet) 650 mg PO Q6H PRN PRN Reason: Pain, Mild 1-3,fever,headache Aspirin (Aspirin Enteric Coated 81 Mg Tablet.) 81 mg PO DAILY [facility] Last Admin: 05/19/25 08:18 Dose: 81 mg Atorvastatin Calcium (Atorvastatin Calcium 40 Mg Tablet) 40 mg PO DAILY [facility] Last Admin: 05/19/25 08:18 Dose: 40 mg Calcium Carbonate (Calcium Carbonate 750 Mg Tab.Chew) 750 mg PO Q4H PRN PRN Reason: Heartburn Dextrose (Dextrose 50 % 25 Gm/50 Ml Syringe) 25 gm IVPUSH Q15M PRN; Protocol PRN Reason: per Hypoglycemia Standing Ord. Docusate Sodium (Docusate Sodium 100 Mg Capsule) 100 mg PO BEDTIME [facility] Last Admin: 05/18/25 20:26 Dose: Not Given Enoxaparin Sodium (Enoxaparin Sodium 40 Mg/0.4 Ml Syringe) 40 mg SUBCUT Q24H [facility] Last Admin: 05/19/25 12:16 Dose: 40 mg Glucose (Glucose Gel 15 Gm Gel..Gram.) 15 gm PO Q15M PRN; Protocol PRN Reason: per Hypoglycemia Standing Ord. Piperacillin Sod/Tazobactam (Sod 3.375 gm/ Sodium Chloride) 50 mls @ 100 mls/hr IV Q6H [facility] Last Infusion: 05/19/25 11:36 Dose: Infused Insulin Human Lispro (Insulin Lispro 100 Unit/Ml 3 Ml Vial) 0 unit SUBCUT QIDACHS [facility]; Protocol Last Admin: 05/19/25 11:48 Dose: Not Given Losartan Potassium (Losartan Potassium 50 Mg Tablet) 100 mg PO DAILY [facility]; Protocol Last Admin: 05/19/25 08:18 Dose: 100 mg Magnesium Hydroxide (Milk Of Magnesia 30 Ml Oral.Susp) 30 ml PO DAILY PRN PRN Reason: Constipation Melatonin (Melatonin 3 Mg Tablet) 6 mg PO BEDTIME PRN PRN Reason: Insomnia Morphine Sulfate (Morphine Sulfate 4 Mg/Ml Cartridge) 4 mg IVPUSH Q4H PRN; Protocol PRN Reason: Pain, Severe (Pain Scale 7-10) Last Admin: 05/19/25 12:16 Dose: 4 mg Oxycodone HCl (Oxycodone Hcl Immed Release 5 Mg Tablet) 5 mg PO Q6H PRN PRN Reason: Pain, Moderate(Pain Scale 4-6) Last Admin: 05/19/25 11:06 Dose: 5 mg Sodium Chloride (0.9 % Sodium Chloride Flush 3 Ml Syringe) [facility] Last Admin: 05/19/25 08:19 Dose: 3 ml Home Medications ?Medication ?Instructions ?Recorded ?Confirmed ?Last Taken ?Type pen needle, diabetic 32 gauge x #50 ea 02/14/21 02/06/25 Unknown History 10/22 aspirin 81 mg tablet,delayed 81 mg PO DAILY 05/18/25 05/18/25 Unknown History release metformin 1,000 mg tablet 1,000 mg PO DAILY 05/18/25 05/18/25 05/18/25 History Physical Exam Vital Signs: Vital Signs: Last Vital Signs Temp 97.3 F 05/19/25 08:07 Pulse 68 05/19/25 08:07 Resp 20 05/19/25 08:07 BP 170/74 H 05/19/25 11:06 Pulse Ox 99 05/19/25 08:07 O2 Del Method Room Air 05/19/25 08:07 BMI result Body Mass Index 24.6 Const: General: cooperative HEENT: Head: Yes normal to inspection Face and sinus: Yes normal facial exam Mouth: Normal oral and palatal mucosa present Teeth and gingiva: dentition normal Eyes: General: appearance normal, both eyes and all related structures Pupils: Equal, round and reactive pupils present Resp: Effort & Inspection: normal respiratory effort Cardio: Rate: regular rate Rhythm: regular rhythm GI: Palpation (GI): Soft to palpation and nontender : General: Yes no CVA tenderness Back/Spine/Pelvis: Back: no CVA tenderness Skin: General skin exam: no rashes or lesions noted Neuro: General: moves all extremities Cranial nerves: Yes Equal, round and reactive pupils present Extrem: Other: left foot swelling fifth toe pulses intact General: Yes normal to inspection Psych: Appearance: grossly normal Results Labs 05/19/25 05:58 05/19/25 05:58 Labs: Short CBC 05/19/25 Range/Units 05:58 WBC 7.7 (4.8-10.8) X10*3/uL Hgb 11.4 L (14.0-18.0) g/dl Hct 33.2 L (42.0-52.0) % Plt Count 184 (160-400) X10*3/uL BMP 05/19/25 05:58 Sodium 139 Potassium 4.3 Chloride 107 Carbon Dioxide 23 BUN 23 H Creatinine 1.45 H Calcium 8.4 Microbiology Microbiology Results: Microbiology 05/18/25 10:10 Blood - Venous Blood Culture - Preliminary No growth after 24 hours. 05/18/25 10:10 Blood - Venous Blood Culture - Preliminary No growth after 24 hours. Assessment and Plan (1) Osteomyelitis: Status: Acute Plan He has OM,foot pain for one month and XR consistent He had right foot infection OM 2019,responded to Ertapenem Would give six weeks total antibiotics, IV Ertapenem 1 g every day. See as outpatient.
--- NOTE | 2025-05-19 13:25 | MHC.CM.PN ---
PT LIVES ALONE HAD NO PREVIOUS SERVICES PTS CAR IS IN PARKING LOT IF PT NEEDS IV ANTIBIOTICS HE WANTS TO COME TO [facility] [place] DAILY HE HAS IN THE PAST DC PLAN TBD
--- NOTE | 2025-05-19 14:18 | MHC.CM.PN ---
Per Provider patient will require LT IV ABX. He has stated that he is not capable of performing home infusion. 2019 patient received IV ABX in short stay. Clinical information was given to the nurse in same stay. He will give it to the manager community relations. He stated that on Thursday, CM should call [phone] Maryann short stay home care scheduler.
[2025-05-19 16:00] VITALS: BP 153/79; PULSE 65; RESP 18; TEMP 36.5; O2SAT 100
--- NOTE | 2025-05-19 16:01 | P.PNIM_ITS ---
Subjective Subjective Date of Service: 05/19/25 Interval History: seen and examined this morning follow up for left foot infection having pain in left foot Constitutional Constitutional: Denies chills and Denies fever(s) Physical Exam 2 Vital Signs: Vital Signs: Last Vital Signs Temp 97.3 F 05/19/25 08:07 Pulse 68 05/19/25 08:07 Resp 20 05/19/25 08:07 BP 170/74 H 05/19/25 11:06 Pulse Ox 99 05/19/25 08:07 O2 Del Method Room Air 05/19/25 08:07 BMI result Body Mass Index 24.6 Const: Other: Constitutional-cooperative, comfortable, in no acute distress. Alert and oriented x3 Respiratory-no respiratory distress, able to speak in full sentences Cardiovascular-regular rate GI abdomen soft, nontender, nondistended Musculoskeletal-able to move all 4 extremities spontaneously Skin see imaging below Neuro grossly intact Skin: Other: Objective Data Active Medications Acetaminophen (Acetaminophen 325 Mg Tablet) 650 mg PO Q6H PRN PRN Reason: Pain, Mild 1-3,fever,headache Aspirin (Aspirin Enteric Coated 81 Mg Tablet.) 81 mg PO DAILY [facility] Last Admin: 05/19/25 08:18 Dose: 81 mg Documented By: ISABELA Atorvastatin Calcium (Atorvastatin Calcium 40 Mg Tablet) 40 mg PO DAILY [facility] Last Admin: 05/19/25 08:18 Dose: 40 mg Documented By: ISABELA Calcium Carbonate (Calcium Carbonate 750 Mg Tab.Chew) 750 mg PO Q4H PRN PRN Reason: Heartburn Dextrose (Dextrose 50 % 25 Gm/50 Ml Syringe) 25 gm IVPUSH Q15M PRN; Protocol PRN Reason: per Hypoglycemia Standing Ord. Docusate Sodium (Docusate Sodium 100 Mg Capsule) 100 mg PO BEDTIME [facility] Last Admin: 05/18/25 20:26 Dose: Not Given Documented By: FAMILIA Non-Admin Reason: Patient Refused Enoxaparin Sodium (Enoxaparin Sodium 40 Mg/0.4 Ml Syringe) 40 mg SUBCUT Q24H [facility] Last Admin: 05/19/25 12:16 Dose: 40 mg Documented By: ISABELA Glucose (Glucose Gel 15 Gm Gel..Gram.) 15 gm PO Q15M PRN; Protocol PRN Reason: per Hypoglycemia Standing Ord. Piperacillin Sod/Tazobactam (Sod 3.375 gm/ Sodium Chloride) 50 mls @ 100 mls/hr IV Q6H [facility] Last Infusion: 05/19/25 11:36 Dose: Infused Documented By: ISABELA Insulin Human Lispro (Insulin Lispro 100 Unit/Ml 3 Ml Vial) 0 unit SUBCUT QIDACHS [facility]; Protocol Last Admin: 05/19/25 11:48 Dose: Not Given Documented By: ISABELA Non-Admin Reason: No Insulin Coverage Losartan Potassium (Losartan Potassium 50 Mg Tablet) 100 mg PO DAILY [facility]; Protocol Last Admin: 05/19/25 08:18 Dose: 100 mg Documented By: ISABELA Magnesium Hydroxide (Milk Of Magnesia 30 Ml Oral.Susp) 30 ml PO DAILY PRN PRN Reason: Constipation Melatonin (Melatonin 3 Mg Tablet) 6 mg PO BEDTIME PRN PRN Reason: Insomnia Morphine Sulfate (Morphine Sulfate 4 Mg/Ml Cartridge) 4 mg IVPUSH Q4H PRN; Protocol PRN Reason: Pain, Severe (Pain Scale 7-10) Last Admin: 05/19/25 12:16 Dose: 4 mg Documented By: ISABELA Oxycodone HCl (Oxycodone Hcl Immed Release 5 Mg Tablet) 5 mg PO Q6H PRN PRN Reason: Pain, Moderate(Pain Scale 4-6) Last Admin: 05/19/25 11:06 Dose: 5 mg Documented By: ISABELA Sodium Chloride (0.9 % Sodium Chloride Flush 3 Ml Syringe) 3 ml IVFLUSH [facility] Last Admin: 05/19/25 08:19 Dose: 3 ml Documented By: ISABELA Labs 05/19/25 05:58 05/19/25 05:58 Labs: Laboratory Results - last 24 hr 05/18/25 05/18/25 05/19/25 16:14 20:14 05:58 MCV 87.4 MCH 30.0 MCHC 34.3 RDW 13.2 Plt Count 184 MPV 10.1 Immature Gran % (Auto) 0.3 Neut % (Auto) 64.3 Lymph % (Auto) 24.0 [place] % (Auto) 6.9 Eos % (Auto) 3.5 Baso % (Auto) 1.0 Lymph # (Auto) 1.9 [place] # (Auto) 0.5 Eos # (Auto) 0.3 Baso # (Auto) 0.1 Abs Immat Gran (auto) 0.02 Absolute Neuts (auto) 5.0 Absolute Nucleated RBC 0.000 Nucleated RBC % (auto) 0.0 Anion Gap 13 Estim Creat Clear Calc 47.5 Estimated GFR 48 POC Glucose 85 83 Random Glucose 116 H Calcium 8.4 Random Vancomycin 05/19/25 05/19/25 05/19/25 07:20 09:52 11:10 MCV MCH MCHC RDW Plt Count MPV Immature Gran % (Auto) Neut % (Auto) Lymph % (Auto) [place] % (Auto) Eos % (Auto) Baso % (Auto) Lymph # (Auto) [place] # (Auto) Eos # (Auto) Baso # (Auto) Abs Immat Gran (auto) Absolute Neuts (auto) Absolute Nucleated RBC Nucleated RBC % (auto) Anion Gap Estim Creat Clear Calc Estimated GFR POC Glucose 91 143 H Random Glucose Calcium Random Vancomycin 10.3 L Microbiology Microbiology Results: Microbiology 05/18/25 10:10 Blood Culture - Preliminary Blood - Venous No growth after 24 hours. 05/18/25 10:10 Blood Culture - Preliminary Blood - Venous No growth after 24 hours. Assessment and Plan (1) Osteomyelitis: Status: Acute Plan This is a 74-year-old male with history of diabetes, hypertension, hyperlipidemia who presents to the emergency department with left 5th toe redness and swelling after failing multiple courses of oral antibiotics with the imaging concerning for acute osteomyelitis Left foot cellulitis with probable left 5th toe acute osteomyelitis associated with underlying DM No sepsis Although ESR only 25 imaging strongly suspicious for osteomyelitis seen by ID, no need for MRI, recommends to continue Zosyn during hospital stay and d/c with 6 weeks of IV ertapenem - end date 06/30 General surgery following, patient unable to tolerate bedside debridement Continue local wound care Blood cultures negative to date PICC line ordered, plan for Thursday as blood cultures need to be negative for 48 hours prior to placement Diabetes HbA1c 6.2 Hold metformin SSI, diabetic diet Hypertension BP up and down - likely elevated due to pain Continue losartan if BP remains persistently elevated would consider adding additional med Hyperlipidemia Continue statin when med reconciliation has been completed CKD 3 Renal function at baseline Tobacco dependence Smoking cessation advised Has declined NRT at this time DVT prophylaxis-Lovenox Code status-full code Patient requires ongoing inpatient stayfor management of cellulitis with concern for acute osteomyelitis requiring IV antibiotics and specialist evaluation and possible debridement of foot wound Quality Stroke Does the patient have a stroke diagnosis?: No VTE Prior VTE?: No VTE Risk Level:: Medical - moderate - high VTE Device Contraindication: N/A - Device Ordered VTE Drug Contraindication: N/A - Med Ordered
--- NOTE | 2025-05-19 16:07 | P.CDIM_ITS ---
PROVIDER RESPONSE TEXT: To clarify, the appropriate diagnosis supported by the clinical indicators: Cellulitis due to/associated with Diabetes Mellitus: associated with DM QUERY TEXT: PHYSICIAN'S DOCUMENTATION REQUEST Date of Query: 05/19/2025 12:01 PM EDT Patient Name: Antonio Reinoso Admit Date: 05/18/2025 Dear Ayah BATISTA, A review of the medical record indicates additional documentation may be needed. Please review below and update the documentation accordingly. Clinical Indicators: Progress note 05/18/25 - Left foot cellulitis with concern for left 5th toe acute osteomyelitis. No Sepsis Continue broad-spectrum antibiotics for now with Vancomycin and Zosyn. Diabetes Check HbA1c, Hold Metformin. SSI, diabetic diet. Please clarify the following regarding the cellulitis/DM relationship if any. Cellulitis due to/associated with Diabetes Mellitus possible, cannot rule out, suspected, etc. Other specified Other (explain) Clinically unable to determine (explain) Thank you, Nurys Pyle, CCS, CDIS Use of terms such as suspected, likely, concern for, or probable (associated with a specific diagnosis that is being evaluated, monitored, or treated as if it exists) are acceptable and can be coded in the inpatient setting, when documented at the time of discharge. Please use your independent medical judgment in providing your response. THIS QUERY IS PART OF THE PERMANENT MEDICAL RECORD
[2025-05-19 16:37] LABS: Glucose, Whole Blood 116 mg/dL (60-115)
--- NOTE | 2025-05-19 18:32 | PC.NURSE ---
Dressing changed by LYNNE Woody this AM at bedside.
[2025-05-19 19:32] VITALS: BP 141/63; PULSE 71; RESP 18; TEMP 36.7; O2SAT 99
[2025-05-19 20:16] LABS: Glucose, Whole Blood 130 mg/dL (60-115)
[2025-05-20 03:50] VITALS: BP 149/67; PULSE 73; RESP 17; TEMP 36.1; O2SAT 98
[2025-05-20 06:50] VITALS: BP 154/71; PULSE 66; RESP 17; TEMP 36.6; O2SAT 98
[2025-05-20 06:53] LABS: Creatinine Clr Calc Pharmacy 45.3; Estimated Glomerular Filt Rate 45
[2025-05-20 07:00] LABS: Glucose, Whole Blood 95 mg/dL (60-115)
--- NOTE | 2025-05-20 08:06 | P.PNIM_ITS ---
Subjective Subjective Date of Service: 05/20/25 Interval History: Seen and evaluated this morning Reports last night pain well managed, was able to finally sleep Then bumped his toe on bedside table this morning; some pain, no bleeding noted Foot wrapped in clean bandage, declines having toe inspected Otherwise pt has no acute medical complaints Review of Systems Review of Systems: Yes all other systems are reviewed and are negative Physical Exam 2 Exam: Exam: General: AOx3, no acute distress Resp: CTA bilaterally CVS: S1, S2, RRR GI: +BS, NT, no distention Skin: Warm, dry Neuro: Cranial nerves II-XII grossly intact bilaterally. Motor grossly intact bilaterally Extremities: No edema. Right foot wrapped in clean bandages; pt decline having visual inspection Psych: Appropriate affect Vital Signs: Vital Signs: Last Vital Signs Temp 97.8 F 05/20/25 06:50 Pulse 66 05/20/25 06:50 Resp 17 05/20/25 06:50 BP 154/71 H 05/20/25 06:50 Pulse Ox 98 05/20/25 06:50 O2 Del Method Room Air 05/20/25 06:50 BMI result Body Mass Index 24.6 Objective Data Active Medications Acetaminophen (Acetaminophen 325 Mg Tablet) 650 mg PO Q6H PRN PRN Reason: Pain, Mild 1-3,fever,headache Aspirin (Aspirin Enteric Coated 81 Mg Tablet.) 81 mg PO DAILY [facility] Last Admin: 05/19/25 08:18 Dose: 81 mg Documented By: ISABELA Atorvastatin Calcium (Atorvastatin Calcium 40 Mg Tablet) 40 mg PO DAILY [facility] Last Admin: 05/19/25 08:18 Dose: 40 mg Documented By: ISABELA Calcium Carbonate (Calcium Carbonate 750 Mg Tab.Chew) 750 mg PO Q4H PRN PRN Reason: Heartburn Dextrose (Dextrose 50 % 25 Gm/50 Ml Syringe) 25 gm IVPUSH Q15M PRN; Protocol PRN Reason: per Hypoglycemia Standing Ord. Docusate Sodium (Docusate Sodium 100 Mg Capsule) 100 mg PO BEDTIME [facility] Last Admin: 05/19/25 20:27 Dose: 100 mg Documented By: JACQUES Enoxaparin Sodium (Enoxaparin Sodium 40 Mg/0.4 Ml Syringe) 40 mg SUBCUT Q24H [facility] Last Admin: 05/19/25 12:16 Dose: 40 mg Documented By: ISABELA Glucose (Glucose Gel 15 Gm Gel..Gram.) 15 gm PO Q15M PRN; Protocol PRN Reason: per Hypoglycemia Standing Ord. Piperacillin Sod/Tazobactam (Sod 3.375 gm/ Sodium Chloride) 50 mls @ 100 mls/hr IV Q6H [facility] Last Infusion: 05/20/25 06:08 Dose: Infused Documented By: JACQUES Insulin Human Lispro (Insulin Lispro 100 Unit/Ml 3 Ml Vial) 0 unit SUBCUT QIDACHS [facility]; Protocol Last Admin: 05/20/25 07:28 Dose: Not Given Documented By: BRENT Non-Admin Reason: No Insulin Coverage Losartan Potassium (Losartan Potassium 50 Mg Tablet) 100 mg PO DAILY [facility]; Protocol Last Admin: 05/19/25 08:18 Dose: 100 mg Documented By: ISABELA Magnesium Hydroxide (Milk Of Magnesia 30 Ml Oral.Susp) 30 ml PO DAILY PRN PRN Reason: Constipation Melatonin (Melatonin 3 Mg Tablet) 6 mg PO BEDTIME PRN PRN Reason: Insomnia Morphine Sulfate (Morphine Sulfate 4 Mg/Ml Cartridge) 4 mg IVPUSH Q4H PRN; Protocol PRN Reason: Pain, Severe (Pain Scale 7-10) Last Admin: 05/19/25 12:16 Dose: 4 mg Documented By: ISABELA Oxycodone HCl (Oxycodone Hcl Immed Release 5 Mg Tablet) 5 mg PO Q6H PRN PRN Reason: Pain, Moderate(Pain Scale 4-6) Last Admin: 05/19/25 11:06 Dose: 5 mg Documented By: ISABELA Sodium Chloride (0.9 % Sodium Chloride Flush 3 Ml Syringe) [address] [facility] Last Admin: 05/19/25 20:27 Dose: 3 ml Documented By: JACQUES Labs 05/19/25 05:58 05/20/25 05:40 Labs: Laboratory Results - last 24 hr 05/19/25 05/19/25 05/19/25 09:52 11:10 16:34 Hold Purple Top Estim Creat Clear Calc Estimated GFR POC Glucose 143 H 116 H Random Vancomycin 10.3 L 05/19/25 05/20/25 05/20/25 20:12 05:40 06:49 Hold Purple Top SEE NOTE Estim Creat Clear Calc 45.3 Estimated GFR 45 POC Glucose 130 H 95 Random Vancomycin Microbiology Microbiology Results: Microbiology 05/18/25 10:10 Blood Culture - Preliminary Blood - Venous No growth after 24 hours. 05/18/25 10:10 Blood Culture - Preliminary Blood - Venous No growth after 24 hours. Assessment and Plan (1) Osteomyelitis: Status: Acute Plan This is a 74-year-old male with history of diabetes, hypertension, hyperlipidemia who presents to the emergency department with left 5th toe redness and swelling after failing multiple courses of oral antibiotics with the imaging concerning for acute osteomyelitis Left foot cellulitis with probable left 5th toe acute osteomyelitis associated with underlying DM No sepsis Although ESR only 25 imaging strongly suspicious for osteomyelitis Seen by ID, no need for MRI, recommends to continue Zosyn during hospital stay and d/c with 6 weeks of IV ertapenem - end date 06/30 General surgery following, patient unable to tolerate bedside debridement; wet to dry dressing, will re-attempt debridement at a later date Continue local wound care Blood cultures negative to date PICC line ordered, plan for Thursday as blood cultures need to be negative for 48 hours prior to placement Diabetes HbA1c 6.2 Resume metformin as pt is resistant to taking insulin in the hospital SSI, diabetic diet Hypertension BP up and down - likely elevated due to pain Continue losartan If BP remains persistently elevated would consider adding additional med Hyperlipidemia Continue statin CKD 3 Renal function at baseline Tobacco dependence Smoking cessation advised Has declined NRT at this time DVT prophylaxis-Lovenox Code status-full code Patient requires ongoing inpatient stayfor management of cellulitis with concern for acute osteomyelitis requiring IV antibiotics and specialist evaluation and possible debridement of foot wound Quality Stroke Does the patient have a stroke diagnosis?: No VTE Prior VTE?: No VTE Risk Level:: Medical - moderate - high VTE Device Contraindication: N/A - Device Ordered VTE Drug Contraindication: N/A - Med Ordered
[2025-05-20 08:43] VITALS: BP 152/66; PULSE 78; RESP 17; TEMP 36.6; O2SAT 97
[2025-05-20] MEDS: 0.9 % Sodium Chloride Flush 3 ML SYRINGE IVFLUSH ×2 (08:50→20:08)
[2025-05-20 11:15] LABS: Glucose, Whole Blood 201 mg/dL (60-115)
[2025-05-20] MEDS: oxyCODONE HCl Immed Release 5 MG TABLET PO (14:59)
--- NOTE | 2025-05-20 15:21 | PM.CNNEP ---
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 States that he is eating and drinking well, not taking NSAIDs Review of Systems Constitutional: Denies body ache(s) and Denies chills Eyes: Denies exophthalmos and Denies change in vision Reports Normal hearing present and Denies bleeding gums Cardiovascular: Denies Abdominal Distension, Denies chest pain and Denies chest pain at rest Respiratory: Denies cough and Denies hemoptysis Gastrointestinal: Denies change in bowel habits and Denies change in stool character Genitourinary: Denies hematuria and Denies difficulty urinating Reports Normal hearing present, Denies Neuro-related abnormal movements and Denies Abnormal speech present PMFSH Past Medical History Medical History (Updated 05/19/25 @ 12:52 by Tatum Bailey MD) Osteomyelitis Basal cell carcinoma PVD (peripheral vascular disease) Osteomyelitis of great toe of right foot Colon cancer screening declined Family History Family History Father Substance use disorder Mother Substance use disorder Maternal Grandfather Substance use disorder Maternal Grandfather Substance use disorder Surgical History Surgical History No pertinent past surgical history Social History Social History Household Members: None Housing: House Do you presently have visiting nurse or other home services: No Alcohol intake: current Alcohol intake frequency: does not drink Patient Tobacco Use Status: Current everyday Tobacco user Tobacco use type: Cigarette Cigarette Packs Per Day: 1 Cigarettes Per Day: 20.0 Years Smoked: 45 e-Cigarette/Vaping Use: Never Used Second Hand Smoke Exposure: No Substance Use Type: Marijuana service: No Current occupational status: retired Cognitive needs: No Hearing needs: No Vision needs: No Meds Allergies Allergy/AdvReac Type Severity Reaction Status Date / Time No Known Allergies (No Known Allergy Verified 05/18/25 09:18 Allergies*) Active Medications: Current Medications Acetaminophen (Acetaminophen 325 Mg Tablet) 650 mg PO Q6H PRN PRN Reason: Pain, Mild 1-3,fever,headache Last Admin: 05/20/25 14:58 Dose: 650 mg Aspirin (Aspirin Enteric Coated 81 Mg Tablet.Dr) 81 mg PO DAILY [facility] Last Admin: 05/20/25 08:50 Dose: Not Given Atorvastatin Calcium (Atorvastatin Calcium 40 Mg Tablet) 40 mg PO DAILY [facility] Last Admin: 05/20/25 08:49 Dose: 40 mg Calcium Carbonate (Calcium Carbonate 750 Mg Tab.Chew) 750 mg PO Q4H PRN PRN Reason: Heartburn Dextrose (Dextrose 50 % 25 Gm/50 Ml Syringe) 25 gm IVPUSH Q15M PRN; Protocol PRN Reason: per Hypoglycemia Standing Ord. Docusate Sodium (Docusate Sodium 100 Mg Capsule) 100 mg PO BEDTIME [facility] Last Admin: 05/19/25 20:27 Dose: 100 mg Enoxaparin Sodium (Enoxaparin Sodium 40 Mg/0.4 Ml Syringe) 40 mg SUBCUT Q24H [facility] Last Admin: 05/20/25 12:04 Dose: 40 mg Glucose (Glucose Gel 15 Gm Gel..Gram.) 15 gm PO Q15M PRN; Protocol PRN Reason: per Hypoglycemia Standing Ord. Piperacillin Sod/Tazobactam (Sod 3.375 gm/ Sodium Chloride) 50 mls @ 100 mls/hr IV Q6H [facility] Last Infusion: 05/20/25 11:29 Dose: Infused Insulin Human Lispro (Insulin Lispro 100 Unit/Ml 3 Ml Vial) 0 unit SUBCUT QIDACHS [facility]; Protocol Last Admin: 05/20/25 11:34 Dose: Not Given Losartan Potassium (Losartan Potassium 50 Mg Tablet) 100 mg PO DAILY [facility]; Protocol Last Admin: 05/20/25 08:49 Dose: 100 mg Magnesium Hydroxide (Milk Of Magnesia 30 Ml Oral.Susp) 30 ml PO DAILY PRN PRN Reason: Constipation Melatonin (Melatonin 3 Mg Tablet) 6 mg PO BEDTIME PRN PRN Reason: Insomnia Metformin HCl (Metformin Hcl 1,000 Mg Tablet) 1,000 mg PO DAILY [facility] Last Admin: 05/20/25 12:04 Dose: 1,000 mg Morphine Sulfate (Morphine Sulfate 4 Mg/Ml Cartridge) 4 mg IVPUSH Q4H PRN; Protocol PRN Reason: Pain, Severe (Pain Scale 7-10) Last Admin: 05/19/25 12:16 Dose: 4 mg Oxycodone HCl (Oxycodone Hcl Immed Release 5 Mg Tablet) 5 mg PO Q6H PRN PRN Reason: Pain, Moderate(Pain Scale 4-6) Last Admin: 05/20/25 14:59 Dose: 5 mg Sodium Chloride (0.9 % Sodium Chloride Flush 3 Ml Syringe) 3 ml IVFLUSH QSHIFT [facility] Last Admin: 05/20/25 08:50 Dose: 3 ml Home Medications ?Medication ?Instructions ?Recorded ?Confirmed ?Last Taken ?Type pen needle, diabetic 32 gauge x #50 ea 02/14/21 02/06/25 Unknown History 10/22 aspirin 81 mg tablet,delayed 81 mg PO DAILY 05/18/25 05/18/25 Unknown History release metformin 1,000 mg tablet 1,000 mg PO DAILY 05/18/25 05/18/25 05/18/25 History Physical Exam Vital Signs: Last Vital Signs Temp 98 F 05/20/25 08:43 Pulse 78 05/20/25 08:43 Resp 17 05/20/25 08:43 BP 152/66 H 05/20/25 08:43 Pulse Ox 97 05/20/25 08:43 O2 Del Method Room Air 05/20/25 08:43 BMI result Body Mass Index 24.6 General: Elderly male not in any acute distress Nutritional Appearance: well nourished and overweight Eyes: appearance normal, both eyes and all related structures; Alignment and Position: alignment normal and position normal Neck: No lymphadenopathy, no thyromegaly Resp: bilateral air entry equal, occasional added sounds present Cardio: Regular rate, regular rhythm; Heart sounds: S1 normal heart sound present and S2 normal heart sound present GI: soft, nontender, no guarding, no hepatosplenomegaly : bladder normal to inspection, bladder normal to palpation, no renal angle tenderness Skin: no rashes or lesions noted and elasticity normal Neuro: oriented to person, oriented to place, oriented to time and moves all extremities Neuro Cranial nerves: Yes Normal hearing present Speech: No Abnormal speech present Results Lab Results 05/19/25 05:58 05/20/25 05:40 Lab results: Chemistry 05/18/25 05/19/25 05/20/25 10:10 05:58 05:40 Sodium 141 139 Potassium 4.3 4.3 Carbon Dioxide 24 23 BUN 26 H 23 H Creatinine 1.48 H 1.45 H 1.52 H Calcium 8.8 8.4 Hematology 05/18/25 05/19/25 10:10 05:58 WBC 8.1 7.7 Hgb 11.6 L 11.4 L Plt Count 198 184 Assessment and Plan (1) HTN (hypertension): Status: Acute (2) Diabetes: Qualifiers: Diabetes mellitus type: type 2 Diabetes mellitus technician terminal and repeater insulin use: without custodial use Diabetes mellitus complication status: with skin complications Status: Acute (3) Microalbuminuria: Status: Acute Plan Chronic kidney disease stage IIIA: Possibly secondary to diabetic kidney disease, we will get urinalysis, urine microalbumin creatinine ratio and urine protein creatinine ratio to see if she warrants any further investigation. His creatinine is at baseline, 1.52 this morning. Continue losartan 100 mg, blood pressure is slightly on the higher side we will add hydrochlorothiazide. Okay to continue metformin as long as the GFR is about 30. Avoid NSAIDs, and any other nephrotoxic medications. Adequate hydration Nephrology we will sign off, can follow up in clinic in 1 month after discharge. Please reconsult if clinical status changes. Procedures Date of Service Date of Service: 05/20/25
[2025-05-20 15:34] VITALS: BP 144/67; PULSE 71; RESP 14; TEMP 37; O2SAT 95
[2025-05-20 16:31] LABS: Glucose, Whole Blood 128 mg/dL (60-115)
[2025-05-20 16:45] LABS: Appearance Urine Clear; Glucose Urine UA Negative (Negative); PH 5.5 (5.0-9.0); Specific Gravity - Urine 1.025 (1.005-1.025); UMIC TRIGGER UA YES
[2025-05-20 17:29] LABS: Microalbum/Creatinine Ratio Ur 268.5 ug/mg cr (<30); Total Protein Urine Random 115 mg/dL (<12)
[2025-05-20 19:51] VITALS: BP 136/65; PULSE 90; RESP 16; TEMP 37; O2SAT 97
[2025-05-20 21:03] LABS: Glucose, Whole Blood 98 mg/dL (60-115)
[2025-05-21 03:51] VITALS: BP 168/71; PULSE 68; RESP 16; TEMP 36.8; O2SAT 96
[2025-05-21 06:58] VITALS: BP 152/72; PULSE 67; RESP 17; TEMP 36.6; O2SAT 100
[2025-05-21 07:07] LABS: Glucose, Whole Blood 101 mg/dL (60-115)
[2025-05-21 07:40] LABS: Creatinine Clr Calc Pharmacy 41.0; Estimated Glomerular Filt Rate 40
--- NOTE | 2025-05-21 08:35 | P.PNGS_ITS ---
Subjective Subjective Date of Service: 05/21/25 Interval history: Patient reports some pain in the 5th toe especially when walking Physical Exam 2 Vital Signs: Vital Signs: Last Vital Signs Temp 97.9 F 05/21/25 06:58 Pulse 67 05/21/25 06:58 Resp 17 05/21/25 06:58 BP 152/72 H 05/21/25 06:58 Pulse Ox 100 05/21/25 06:58 O2 Del Method Room Air 05/21/25 06:58 BMI result Body Mass Index 24.6 Const: General: healthy appearing Nutritional Appearance: well nourished Orientation/consciousness: patient oriented x3 Limitations: no limitations Resp: Effort & Inspection: normal respiratory effort Skin: Other: Warm, dry, Neuro: General: patient oriented x3 Extrem: Other: Dressing change to the left foot. Callus remains in place in the middle phalanx, less erythema noted in the forefoot. No drainage noted at this time. Wounds dressed with Xeroform, 4 x 4 gauze and Kerlix. Objective Data Active Medications Acetaminophen (Acetaminophen 325 Mg Tablet) 650 mg PO Q6H PRN PRN Reason: Pain, Mild 1-3,fever,headache Last Admin: 05/20/25 14:58 Dose: 650 mg Documented By: BRENT Aspirin (Aspirin Enteric Coated 81 Mg Tablet.) 81 mg PO DAILY [facility] Last Admin: 05/20/25 08:50 Dose: Not Given Documented By: BRENT Non-Admin Reason: Patient Refused Atorvastatin Calcium (Atorvastatin Calcium 40 Mg Tablet) 40 mg PO DAILY [facility] Last Admin: 05/20/25 08:49 Dose: 40 mg Documented By: BRENT Calcium Carbonate (Calcium Carbonate 750 Mg Tab.Chew) 750 mg PO Q4H PRN PRN Reason: Heartburn Dextrose (Dextrose 50 % 25 Gm/50 Ml Syringe) 25 gm IVPUSH Q15M PRN; Protocol PRN Reason: per Hypoglycemia Standing Ord. Docusate Sodium (Docusate Sodium 100 Mg Capsule) 100 mg PO BEDTIME [facility] Last Admin: 05/20/25 20:08 Dose: 100 mg Documented By: JACQUES Enoxaparin Sodium (Enoxaparin Sodium 40 Mg/0.4 Ml Syringe) 40 mg SUBCUT Q24H [facility] Last Admin: 05/20/25 12:04 Dose: 40 mg Documented By: BRENT Glucose (Glucose Gel 15 Gm Gel..Gram.) 15 gm PO Q15M PRN; Protocol PRN Reason: per Hypoglycemia Standing Ord. Hydrochlorothiazide (Hydrochlorothiazide 25 Mg Tablet) 25 mg PO DAILY [facility]; Protocol Last Admin: 05/20/25 15:46 Dose: 25 mg Documented By: BRENT Piperacillin Sod/Tazobactam (Sod 2.25 gm/ Sodium Chloride) 50 mls @ 100 mls/hr IV Q6H [facility] Insulin Human Lispro (Insulin Lispro 100 Unit/Ml 3 Ml Vial) 0 unit SUBCUT QIDACHS [facility]; Protocol Last Admin: 05/21/25 07:13 Dose: Not Given Documented By: BRENT Non-Admin Reason: No Insulin Coverage Losartan Potassium (Losartan Potassium 50 Mg Tablet) 100 mg PO DAILY [facility]; Protocol Last Admin: 05/20/25 08:49 Dose: 100 mg Documented By: BRENT Magnesium Hydroxide (Milk Of Magnesia 30 Ml Oral.Susp) 30 ml PO DAILY PRN PRN Reason: Constipation Melatonin (Melatonin 3 Mg Tablet) 6 mg PO BEDTIME PRN PRN Reason: Insomnia Metformin HCl (Metformin Hcl 500 Mg Tablet) 500 mg PO BID [facility] Morphine Sulfate (Morphine Sulfate 4 Mg/Ml Cartridge) 4 mg IVPUSH Q4H PRN; Protocol PRN Reason: Pain, Severe (Pain Scale 7-10) Last Admin: 05/19/25 12:16 Dose: 4 mg Documented By: ISABELA Oxycodone HCl (Oxycodone Hcl Immed Release 5 Mg Tablet) 5 mg PO Q6H PRN PRN Reason: Pain, Moderate(Pain Scale 4-6) Last Admin: 05/20/25 14:59 Dose: 5 mg Documented By: BRENT Sodium Chloride (0.9 % Sodium Chloride Flush 3 Ml Syringe) 3 ml IVFLUSH QSHIFT [facility] Last Admin: 05/20/25 20:08 Dose: 3 ml Documented By: JACQUES Labs 05/19/25 05:58 05/21/25 06:43 Labs: Laboratory Results - last 24 hr 05/20/25 05/20/25 05/20/25 11:05 16:26 20:59 Hold Purple Top Estim Creat Clear Calc Estimated GFR POC Glucose 201 H 128 H 98 Urine Color Yellow Urine Appearance Clear Urine pH 5.5 Ur Specific [place] 1.025 Urine Protein 100 (2+) H Urine Glucose (UA) Negative Urine Ketones Trace Urine Blood Negative Urine Nitrite Negative Ur Leukocyte Esterase Negative Urine RBC 0-2 Urine WBC 0-5 Ur Squamous Epith Cells 0-2 Urine Bacteria None Seen Hyaline Casts 0-2 U Random Total Protein 115 H Urine Creatinine 184.31 Urine Microalbumin 495.0 Microalb/Creat Ratio 268.5 H 05/21/25 05/21/25 06:43 06:58 Hold Purple Top SEE NOTE Estim Creat Clear Calc 41.0 Estimated GFR 40 POC Glucose 101 Urine Color Urine Appearance Urine pH Ur Specific [place] Urine Protein Urine Glucose (UA) Urine Ketones Urine Blood Urine Nitrite Ur Leukocyte Esterase Urine RBC Urine WBC Ur Squamous Epith Cells Urine Bacteria Hyaline Casts U Random Total Protein Urine Creatinine Urine Microalbumin Microalb/Creat Ratio Microbiology Microbiology Results: Microbiology 05/18/25 10:10 Blood Culture - Preliminary Blood - Venous No growth after 48 hours. 05/18/25 10:10 Blood Culture - Preliminary Blood - Venous No growth after 48 hours. Procedures Date of Service Date of Service: 05/21/25 Progress Note: A&P Assessment and plan (1) Osteomyelitis: Status: Acute Plan Patient with continued callus in the left 5th toe which is tender to palpation. Discussed debridement the OR to remove the callus. Patient is not interested in proceeding with this and would prefer to treat with the antibiotics alone. He reports that he may be going home tomorrow after the PICC line is placed. He should follow up with wound care as an outpatient for further management. Time Spent With Patient Time: Total time managing care of this patient today ____ minutes. Quality Stroke Does the patient have a stroke diagnosis?: No VTE Prior VTE?: No VTE Risk Level:: Medical - moderate - high VTE Device Contraindication: N/A - Device Ordered VTE Drug Contraindication: N/A - Med Ordered
[2025-05-21 08:42] VITALS: BP 165/67; PULSE 75
[2025-05-21] MEDS: Aspirin Enteric Coated 81 MG TABLET.DR PO (09:15)
[2025-05-21] MEDS: 0.9 % Sodium Chloride Flush 3 ML SYRINGE IVFLUSH ×2 (09:16→22:23)
[2025-05-21 11:08] LABS: Glucose, Whole Blood 158 mg/dL (60-115)
--- NOTE | 2025-05-21 13:36 | P.PNIM_ITS ---
Subjective Subjective Date of Service: 05/21/25 Interval History: No acute events overnight Left toe pain improved Denies any other complaints Is looking forward to being discharged tomorrow Review of Systems Review of Systems: Yes all other systems are reviewed and are negative Physical Exam 2 Exam: Exam: General: AOx3, no acute distress Resp: CTA bilaterally CVS: S1, S2, RRR GI: +BS, NT, no distention Skin: Warm, dry Neuro: Cranial nerves II-XII grossly intact bilaterally. Motor grossly intact bilaterally Extremities: No edema. Right foot wrapped in clean bandages; pt decline having visual inspection Psych: Appropriate affect Vital Signs: Vital Signs: Last Vital Signs Temp 97.9 F 05/21/25 06:58 Pulse 75 05/21/25 08:42 Resp 17 05/21/25 06:58 BP 165/67 H 05/21/25 08:42 Pulse Ox 100 05/21/25 06:58 O2 Del Method Room Air 05/21/25 06:58 BMI result Body Mass Index 24.6 Objective Data Active Medications Acetaminophen (Acetaminophen 325 Mg Tablet) 650 mg PO Q6H PRN PRN Reason: Pain, Mild 1-3,fever,headache Last Admin: 05/20/25 14:58 Dose: 650 mg Documented By: BRENT Aspirin (Aspirin Enteric Coated 81 Mg Tablet.) 81 mg PO DAILY [facility] Last Admin: 05/21/25 09:15 Dose: 81 mg Documented By: BRENT Atorvastatin Calcium (Atorvastatin Calcium 40 Mg Tablet) 40 mg PO DAILY [facility] Last Admin: 05/21/25 09:14 Dose: 40 mg Documented By: BRENT Calcium Carbonate (Calcium Carbonate 750 Mg Tab.Chew) 750 mg PO Q4H PRN PRN Reason: Heartburn Dextrose (Dextrose 50 % 25 Gm/50 Ml Syringe) 25 gm IVPUSH Q15M PRN; Protocol PRN Reason: per Hypoglycemia Standing Ord. Docusate Sodium (Docusate Sodium 100 Mg Capsule) 100 mg PO BEDTIME [facility] Last Admin: 05/20/25 20:08 Dose: 100 mg Documented By: JACQUES Enoxaparin Sodium (Enoxaparin Sodium 40 Mg/0.4 Ml Syringe) 40 mg SUBCUT Q24H [facility] Last Admin: 05/21/25 12:50 Dose: Not Given Documented By: BRENT Non-Admin Reason: Patient Refused Glucose (Glucose Gel 15 Gm Gel..Gram.) 15 gm PO Q15M PRN; Protocol PRN Reason: per Hypoglycemia Standing Ord. Hydrochlorothiazide (Hydrochlorothiazide 25 Mg Tablet) 25 mg PO DAILY [facility]; Protocol Last Admin: 05/21/25 09:14 Dose: 25 mg Documented By: BRENT Piperacillin Sod/Tazobactam (Sod 2.25 gm/ Sodium Chloride) 50 mls @ 100 mls/hr IV Q6H [facility] Last Infusion: 05/21/25 12:50 Dose: Infused Documented By: BRENT Insulin Human Lispro (Insulin Lispro 100 Unit/Ml 3 Ml Vial) 0 unit SUBCUT QIDACHS [facility]; Protocol Last Admin: 05/21/25 11:18 Dose: 2 unit Documented By: BRENT Losartan Potassium (Losartan Potassium 50 Mg Tablet) 100 mg PO DAILY [facility]; Protocol Last Admin: 05/21/25 09:15 Dose: 100 mg Documented By: BRENT Magnesium Hydroxide (Milk Of Magnesia 30 Ml Oral.Susp) 30 ml PO DAILY PRN PRN Reason: Constipation Melatonin (Melatonin 3 Mg Tablet) 6 mg PO BEDTIME PRN PRN Reason: Insomnia Metformin HCl (Metformin Hcl 500 Mg Tablet) 500 mg PO BID [facility] Last Admin: 05/21/25 09:14 Dose: 500 mg Documented By: BRENT Morphine Sulfate (Morphine Sulfate 4 Mg/Ml Cartridge) 4 mg IVPUSH Q4H PRN; Protocol PRN Reason: Pain, Severe (Pain Scale 7-10) Last Admin: 05/19/25 12:16 Dose: 4 mg Documented By: ISABELA Oxycodone HCl (Oxycodone Hcl Immed Release 5 Mg Tablet) 5 mg PO Q6H PRN PRN Reason: Pain, Moderate(Pain Scale 4-6) Last Admin: 05/20/25 14:59 Dose: 5 mg Documented By: BRETN Sodium Chloride (0.9 % Sodium Chloride Flush 3 Ml Syringe) [facility] Last Admin: 05/21/25 09:16 Dose: 3 ml Documented By: BRENT Labs 05/19/25 05:58 05/21/25 06:43 Labs: Laboratory Results - last 24 hr 05/20/25 05/20/25 05/21/25 16:26 20:59 06:43 Hold Purple Top SEE NOTE Estim Creat Clear Calc 41.0 Estimated GFR 40 POC Glucose 128 H 98 Urine Color Yellow Urine Appearance Clear Urine pH 5.5 Ur Specific [place] 1.025 Urine Protein 100 (2+) H Urine Glucose (UA) Negative Urine Ketones Trace Urine Blood Negative Urine Nitrite Negative Ur Leukocyte Esterase Negative Urine RBC 0-2 Urine WBC 0-5 Ur Squamous Epith Cells 0-2 Urine Bacteria None Seen Hyaline Casts 0-2 U Random Total Protein 115 H Urine Creatinine 184.31 Urine Microalbumin 495.0 Microalb/Creat Ratio 268.5 H 05/21/25 05/21/25 06:58 11:02 Hold Purple Top Estim Creat Clear Calc Estimated GFR POC Glucose 101 158 H Urine Color Urine Appearance Urine pH Ur Specific [place] Urine Protein Urine Glucose (UA) Urine Ketones Urine Blood Urine Nitrite Ur Leukocyte Esterase Urine RBC Urine WBC Ur Squamous Epith Cells Urine Bacteria Hyaline Casts U Random Total Protein Urine Creatinine Urine Microalbumin Microalb/Creat Ratio Microbiology Microbiology Results: Microbiology 05/18/25 10:10 Blood Culture - Preliminary Blood - Venous No growth after 48 hours. 05/18/25 10:10 Blood Culture - Preliminary Blood - Venous No growth after 48 hours. Assessment and Plan (1) Osteomyelitis: Status: Acute Plan This is a 74-year-old male with history of diabetes, hypertension, hyperlipidemia who presents to the emergency department with left 5th toe redness and swelling after failing multiple courses of oral antibiotics with the imaging concerning for acute osteomyelitis Left foot cellulitis with probable left 5th toe acute osteomyelitis associated with underlying DM No sepsis Although ESR only 25 imaging strongly suspicious for osteomyelitis Seen by ID, no need for MRI, recommends to continue Zosyn during hospital stay and d/c with 6 weeks of IV ertapenem - end date 06/30 General surgery following, patient unable to tolerate bedside debridement; pt declined debridement in the OR; wet to dry dressing Continue local wound care Blood cultures negative to date PICC line ordered, plan for Thursday as blood cultures need to be negative for 48 hours prior to placement Pt amenable to having VNA services come to his house to administer abx Diabetes HbA1c 6.2 Resume metformin as pt is resistant to taking insulin in the hospital SSI, diabetic diet Hypertension BP up and down - likely elevated due to pain Continue losartan If BP remains persistently elevated would consider adding additional med Hyperlipidemia Continue statin CKD 3 Renal function at baseline Tobacco dependence Smoking cessation advised Has declined NRT at this time DVT prophylaxis-Lovenox Code status-full code Patient requires ongoing inpatient stay for management of cellulitis with concern for acute osteomyelitis requiring IV antibiotics and specialist evaluation and possible debridement of foot wound. Pt will require PICC line placement tomorrow for receiving IV abx at home. Quality Stroke Does the patient have a stroke diagnosis?: No VTE Prior VTE?: No VTE Risk Level:: Medical - moderate - high VTE Device Contraindication: N/A - Device Ordered VTE Drug Contraindication: N/A - Med Ordered
[2025-05-21 16:00] VITALS: BP 174/74; PULSE 73; RESP 16; TEMP 37; O2SAT 98
[2025-05-21 16:34] LABS: Glucose, Whole Blood 97 mg/dL (60-115)
[2025-05-21 20:00] VITALS: BP 128/61; PULSE 73; RESP 18; TEMP 36.6; O2SAT 100
[2025-05-21 20:51] LABS: Glucose, Whole Blood 128 mg/dL (60-115)
[2025-05-21] MEDS: oxyCODONE HCl Immed Release 5 MG TABLET PO (23:53)
[2025-05-22 03:53] VITALS: BP 140/60; PULSE 71; RESP 18; TEMP 36.3; O2SAT 95
[2025-05-22 07:26] LABS: Glucose, Whole Blood 126 mg/dL (60-115)
[2025-05-22 07:32] LABS: Creatinine Clr Calc Pharmacy 40.3; Estimated Glomerular Filt Rate 40
[2025-05-22 07:58] VITALS: BP 122/66; PULSE 76; RESP 16; TEMP 36.4; O2SAT 99
[2025-05-22] MEDS: Aspirin Enteric Coated 81 MG TABLET.DR PO (08:26)
[2025-05-22] MEDS: 0.9 % Sodium Chloride Flush 3 ML SYRINGE IVFLUSH ×3 (08:29→21:46)
--- NOTE | 2025-05-22 10:36 | P.PNNP_ITS ---
Subjective Subjective Date of Service: 05/22/25 Interval history: Patient is here with left toe infection, needs [facility] IV [facility] for treatment. Nephrology consulted for PICC line clearance in setting of CKD. creatinine 1.45-1.71 over the last year, minimal labrotory data available. GFR 40, has proteinuria. Physical Exam 2 Vital Signs: Vital Signs: Last Vital Signs Temp 97.6 F 05/22/25 07:58 Pulse 76 05/22/25 07:58 Resp 16 05/22/25 07:58 BP 122/66 05/22/25 07:58 Pulse Ox 99 05/22/25 07:58 O2 Del Method Room Air 05/22/25 07:58 BMI result Body Mass Index 24.6 Const: General: no acute distress, alert and awake Resp: Effort & Inspection: normal respiratory effort and able to speak in complete sentences Auscultation: clear to auscultation bilaterally Cardio: Rate: regular rate Rhythm: regular rhythm Heart sounds: S1 normal heart sound present and S2 normal heart sound present GI: Palpation (GI): Soft to palpation and nontender : General: Yes no CVA tenderness Back/Spine/Pelvis: Back: no CVA tenderness Skin: Rashes: no rashes Extrem: General: No edema Objective Data Labs 05/19/25 05:58 05/22/25 06:41 Labs: Laboratory Results - last 24 hr 05/21/25 05/21/25 05/21/25 11:02 16:15 20:44 Creatinine Estim Creat Clear Calc Estimated GFR POC Glucose 158 H 97 128 H 05/22/25 05/22/25 06:41 07:23 Creatinine 1.71 H Estim Creat Clear Calc 40.3 Estimated GFR 40 POC Glucose 126 H Microbiology Microbiology Results: Microbiology 05/18/25 10:10 Blood - Venous Blood Culture - Preliminary No growth after 48 hours. 05/18/25 10:10 Blood - Venous Blood Culture - Preliminary No growth after 48 hours. Procedures Date of Service Date of Service: 05/22/25 Assessment & Plan Assessment and plan (1) CKD stage 3b, GFR 30-44 ml/min: Status: Acute Plan Patient with CKD3b, has proteinuria recommend against PICC line placement as patient is at increased risk for being placed on dialysis in the future. Need to preserve distal vasculature. Ok to place Castellanos catheter for IV antibiotics from a renal standpoint. Discussed with Dr Hall. Time Spent With Patient Time: Total time managing care of this patient today ____ minutes. Progress Note: Quality Stroke Does the patient have a stroke diagnosis?: No
--- NOTE | 2025-05-22 11:13 | HO.PM.IMPN ---
Subjective Subjective Date of Service: 05/22/25 Interval History: No acute events overnight Pt seen and examined in his room he is sitting comfortably on side of his bed Denies left foot pain No fever, chills, lightheadedness, dizziness Pt re-evaluated by Nephrology reports kidney function is to borderline for a PICC and so will need a Castellanos instead Pt will be made NPO after midnight Review of Systems Review of Systems: Yes all other systems are reviewed and are negative Physical Exam Exam: Exam: General: AOx3, no acute distress Resp: CTA bilaterally CVS: S1, S2, RRR GI: +BS, NT, no distention Skin: Warm, dry Neuro: Cranial nerves II-XII grossly intact bilaterally. Motor grossly intact bilaterally Extremities: No edema. Right foot wrapped in clean bandages. Psych: Appropriate affect Vital Signs: Vital Signs: Last Vital Signs Temp 97.6 F 05/22/25 07:58 Pulse 76 05/22/25 07:58 Resp 16 05/22/25 07:58 BP 122/66 05/22/25 07:58 Pulse Ox 99 05/22/25 07:58 O2 Del Method Room Air 05/22/25 07:58 BMI result Body Mass Index 24.6 Objective Data Active Medications Acetaminophen (Acetaminophen 325 Mg Tablet) 650 mg PO Q6H PRN PRN Reason: Pain, Mild 1-3,fever,headache Last Admin: 05/20/25 14:58 Dose: 650 mg Documented By: BRENT Aspirin (Aspirin Enteric Coated 81 Mg Tablet.) 81 mg PO DAILY [facility] On Hold: 05/22/25 09:43 Last Admin: 05/22/25 08:26 Dose: 81 mg Documented By: BRENT Atorvastatin Calcium (Atorvastatin Calcium 40 Mg Tablet) 40 mg PO DAILY [facility] Last Admin: 05/22/25 08:26 Dose: 40 mg Documented By: BRENT Calcium Carbonate (Calcium Carbonate 750 Mg Tab.Chew) 750 mg PO Q4H PRN PRN Reason: Heartburn Dextrose (Dextrose 50 % 25 Gm/50 Ml Syringe) 25 gm IVPUSH Q15M PRN; Protocol PRN Reason: per Hypoglycemia Standing Ord. Docusate Sodium (Docusate Sodium 100 Mg Capsule) 100 mg PO BEDTIME [facility] Last Admin: 05/21/25 22:23 Dose: 100 mg Documented By: JOELLE Enoxaparin Sodium (Enoxaparin Sodium 40 Mg/0.4 Ml Syringe) 40 mg SUBCUT Q24H GEOVANI On Hold: 05/22/25 09:38 Last Admin: 05/21/25 12:50 Dose: Not Given Documented By: BRENT Non-Admin Reason: Patient Refused Glucose (Glucose Gel 15 Gm Gel..Gram.) 15 gm PO Q15M PRN; Protocol PRN Reason: per Hypoglycemia Standing Ord. Hydrochlorothiazide (Hydrochlorothiazide 25 Mg Tablet) 25 mg PO DAILY [facility]; Protocol Last Admin: 05/22/25 08:26 Dose: 25 mg Documented By: BRENT Piperacillin Sod/Tazobactam (Sod 2.25 gm/ Sodium Chloride) 50 mls @ 100 mls/hr IV Q6H [facility] Last Infusion: 05/22/25 06:15 Dose: Infused Documented By: JOELLE Insulin Human Lispro (Insulin Lispro 100 Unit/Ml 3 Ml Vial) 0 unit SUBCUT QIDACHS [facility]; Protocol Last Admin: 05/22/25 07:30 Dose: Not Given Documented By: BRENT Non-Admin Reason: No Insulin Coverage Losartan Potassium (Losartan Potassium 50 Mg Tablet) 100 mg PO DAILY [facility]; Protocol Last Admin: 05/22/25 08:26 Dose: 100 mg Documented By: BRENT Magnesium Hydroxide (Milk Of Magnesia 30 Ml Oral.Susp) 30 ml PO DAILY PRN PRN Reason: Constipation Melatonin (Melatonin 3 Mg Tablet) 6 mg PO BEDTIME PRN PRN Reason: Insomnia Morphine Sulfate (Morphine Sulfate 4 Mg/Ml Cartridge) 4 mg IVPUSH Q4H PRN; Protocol PRN Reason: Pain, Severe (Pain Scale 7-10) Last Admin: 05/19/25 12:16 Dose: 4 mg Documented By: ISABELA Oxycodone HCl (Oxycodone Hcl Immed Release 5 Mg Tablet) 5 mg PO Q6H PRN PRN Reason: Pain, Moderate(Pain Scale 4-6) Last Admin: 05/21/25 23:53 Dose: 5 mg Documented By: JOELLE Sodium Chloride (0.9 % Sodium Chloride Flush 3 Ml Syringe) [facility] Last Admin: 05/22/25 08:29 Dose: 3 ml Documented By: BRENT Labs 05/19/25 05:58 05/22/25 06:41 Labs: Laboratory Results - last 24 hr 05/21/25 05/21/25 05/22/25 16:15 20:44 06:41 Estim Creat Clear Calc 40.3 Estimated GFR 40 POC Glucose 97 128 H 05/22/25 07:23 Estim Creat Clear Calc Estimated GFR POC Glucose 126 H Assessment and Plan (1) Osteomyelitis: Status: Acute Plan This is a 74-year-old male with history of diabetes, hypertension, hyperlipidemia who presents to the emergency department with left 5th toe redness and swelling after failing multiple courses of oral antibiotics with the imaging concerning for acute osteomyelitis Left foot cellulitis with probable left 5th toe acute osteomyelitis associated with underlying DM No sepsis Although ESR only 25 imaging strongly suspicious for osteomyelitis Seen by ID, no need for MRI, recommends to continue Zosyn during hospital stay and d/c with 6 weeks of IV ertapenem - end date 06/29 General surgery following, patient unable to tolerate bedside debridement; pt declined debridement in the OR; wet to dry dressing Continue local wound care Blood cultures negative to date Nephrology consulted and pt's CKD too borderline for PICC, needs Castellanos instead; make NPO after midnight, hold aspirin and Lovenox Blood cultures negative after 48 hours Pt amenable to having VNA services come to his house to administer abx Diabetes HbA1c 6.2 Hold metformin SSI, diabetic diet Hypertension BP up and down - likely elevated due to pain Continue losartan If BP remains persistently elevated would consider adding additional med Hyperlipidemia Continue statin CKD 3 Renal function at baseline Tobacco dependence Smoking cessation advised Has declined NRT at this time DVT prophylaxis-Lovenox on hold due to line placement; pt ambulatory Code status-full code Patient requires ongoing inpatient stay for management of cellulitis with concern for acute osteomyelitis requiring IV antibiotics and specialist evaluation and possible debridement of foot wound. Pt will require PICC line placement tomorrow for receiving IV abx at home. Quality Stroke Does the patient have a stroke diagnosis?: No VTE Prior VTE?: No VTE Risk Level:: Medical - moderate - high VTE Device Contraindication: N/A - Device Ordered VTE Drug Contraindication: N/A - Med Ordered
[2025-05-22 11:17] LABS: Glucose, Whole Blood 140 mg/dL (60-115)
--- NOTE | 2025-05-22 11:43 | MHC.CM.PN ---
Addendum entered by Karla Daniels 05/22/25 12:42: THE FIRST DAY STAY APPT FOR IV ABX ADMINISTRATION IS BOOKED FOR 05/24 @ 1000 HOURS Original Note: PER MD ROUNDS, PT WILL GET A TABOR TOMORROW DAY STAY WILL ADMINISTER IV ABX DAILY STARTING 05/24/25 - 06/29/25
[2025-05-22 15:12] VITALS: BP 133/65; PULSE 68; RESP 18; TEMP 36.1; O2SAT 99
[2025-05-22 16:22] LABS: Glucose, Whole Blood 110 mg/dL (60-115)
[2025-05-22 19:31] VITALS: BP 133/63; PULSE 72; RESP 18; TEMP 36.5; O2SAT 100
[2025-05-22 20:56] LABS: Glucose, Whole Blood 123 mg/dL (60-115)
[2025-05-23] VITALS (7 sets, daily range): BP systolic 133–156; BP diastolic 46–80; PULSE 66–88; RESP 14–20; TEMP 35.8–36.4; O2SAT 97–100
[2025-05-23 06:27] LABS: Creatinine Clr Calc Pharmacy 42.2; Estimated Glomerular Filt Rate 42
[2025-05-23 07:18] LABS: Glucose, Whole Blood 101 mg/dL (60-115)
[2025-05-23] MEDS: 0.9 % Sodium Chloride Flush 3 ML SYRINGE IVFLUSH ×2 (07:51→17:01)
--- NOTE | 2025-05-23 10:25 | MHC.CM.PN ---
Addendum entered by Debora Young RN 05/23/25 10:28: IMM delivered. Original Note: Per MD rounds - plan is for acosta today, first dose of ertapenem and then dc home. Will receive ertapenem at [facility] infusion center daily, arranged by previous CM. List of appointment times provided to patient. Patient will transport himself home on dc and to all infusion center appointments.
--- NOTE | 2025-05-23 10:57 | PM.DS ---
DS: Providers Provider Date of Service: 05/23/25 Date of admission: 05/18/25 12:08 Date of discharge: 05/23/25 Primary care physician: TOMEKA Montanez Consults: 05/18/25 12:24 Consult to Infectious Diseases Routine Consulting Provider: [facility] Reason for consultation: left foot infection ?osteo Has provider been notified: No 05/18/25 12:27 Consult to General Surgery Routine Consulting Provider: [facility] Reason for consultation: left 5th toe infection 05/19/25 17:13 Consult to Nephrology Routine Consulting Provider: [facility] Reason for consultation: IR wants ok for PICC line or acosta for IV abx Has provider been notified: No DS: Diagnosis Discharge Diagnosis (1) Osteomyelitis: Status: Inactive DS: Summary Hospital Course Hospital Course: From admission HPI: Date of Service: 05/18/25 Attending physician on admission: Ishan Goff Chief Complaint: Left foot infection This is a 74-year-old male with history of diabetes who presents to the emergency department due to left foot infection. He states he has been on multiple courses of oral antibiotics over the past month and a half with no significant improvement. He continues to have redness of the left 5th toe. He denies any associated fever or chills. He can not recall the names of any of the antibiotics he has taken. In the emergency department he had x-ray which was strongly suspicious of osteomyelitis. He was afebrile, with no leukocytosis. Inflammatory markers mildly elevated with ESR of 25 and CRP of 2.51. Patient received IV antibiotics and will be admitted to the hospital for further management. Hospital course: Pt was admitted to the hospital for acute osteomyelitis of 5th digit of left foot in the setting of underlying type 2 diabetes and started Zosyn. Was seen and evaluated by ID who felt there was no need for an MRI and recommended continuing Zosyn while in the hospital and then discharging on 6 weeks of ertapenem 1 mg IV with end date of 06/29. Pt with CKD 3; was seen and evaluated by Nephrology who recommended against PICC line placement as pt is at increased risk for being dialysis candidate in the future and thus there is a need to preserve distal vasculature. Pt instead had Acosta line placed and will come to the [facility] infusion center daily for IV antibiotic administration. Pt was also given a postop boot for left foot protection as current bandaging prevented wearing his normal footwear. Pt will follow up with wound care. Blood cultures have remained negative to date. Pt is back to baseline and without any significant left foot pain. Pt agreeable with plan of discharge. For diabetes, pt is to continue metformin 1000 mg b.i.d.; should adhere to a diabetic diet For HLD continue statin, aspirin For HTN continue losartan Time Attestation Discharge Coordination Time (in mins): 40 Quality: Safe Use of Opioids Does Pt have an Active Cancer Diagnosis on the Problem List?: No Quality: Stroke Does the patient have a stroke diagnosis?: No Physical Exam Exam: Exam: General: AOx3, no acute distress Resp: CTA bilaterally CVS: S1, S2, RRR GI: +BS, NT, no distention Skin: Warm, dry Neuro: Cranial nerves II-XII grossly intact bilaterally. Motor grossly intact bilaterally Extremities: No edema. Right foot wrapped in clean bandages. Acosta line in place without any signs of bleeding or infection Psych: Appropriate affect Vital Signs: Vital Signs: Last Vital Signs Temp 97.6 F 05/23/25 07:41 Pulse 66 05/23/25 07:41 Resp 16 05/23/25 07:41 BP 142/63 H 05/23/25 07:41 Pulse Ox 98 05/23/25 07:41 O2 Del Method Room Air 05/23/25 07:41 BMI result Body Mass Index 24.6 DS: Data Data Completed and Pending Labs on day of discharge: Laboratory Results - last 24 hr 05/22/25 05/22/25 05/22/25 11:13 16:18 20:50 Creatinine Estim Creat Clear Calc Estimated GFR POC Glucose 140 H 110 123 H 05/23/25 05/23/25 05:44 07:14 Creatinine 1.63 H Estim Creat Clear Calc 42.2 Estimated GFR 42 POC Glucose 101 Preliminary micro results at discharge 05/18/25 10:10 Blood Culture - Preliminary Blood - Venous No growth after 48 hours. 05/18/25 10:10 Blood Culture - Preliminary Blood - Venous No growth after 48 hours. Discharge Plan Discharge Anticipated Discharge Date/Time: 05/23/25 16:42 Patient Disposition: Home, Self-Care Discharge Diagnosis: Acute left fifth toe osteomyelitis Referrals: [facility] [Outside] - 05/24/25 10:00 am Referral Note: Infusion center. Your first appt is 05/24 at 10am. You were provided with a list of all other appointment times through 06/29/25. Ruben Palacios, [employer] W[employer]ER OPERATOR- [Primary Care Provider, Internal Medicine] - 1 Week Discharge Medications: Continued losartan 100 mg tablet 100 mg PO DAILY 90 Days Qty: 90 3RF aspirin 81 mg tablet,delayed release (DR/EC) 81 mg PO DAILY metformin 1,000 mg tablet 1,000 mg PO DAILY (DME) pen needle, diabetic 32 gauge x 1/4 needle See Rx Instructions subcut DAILY Qty: 50 Rx Instructions: As directed (DME) lancets 30 gauge misc See Rx Instructions .ROUTE .MEDSUPPLY Qty: 100 0RF Rx Instructions: As directed atorvastatin 40 mg tablet 40 mg PO DAILY Qty: 90 1RF No Action (DME) blood-glucose meter [FreeStyle Lite Meter] Kit See Rx Instructions .Route Qty: 1 0RF Rx Instructions: Test blood sugar once a day (DME) AccuChek guide meter See Rx Instructions .Route .MEDSUPPLY Qty: 1 0RF Rx Instructions: check blood sugar once daily (DME) Accucheck guide lancets See Rx Instructions .Route .MEDSUPPLY Qty: 50 6RF Rx Instructions: Check blood sugar once daily as directed (DME) Accuchek guide strips See Rx Instructions .Route .MEDSUPPLY Qty: 50 6RF Rx Instructions: Check blood sugar once daily as directed Discharge Orders: Discharge Order (Routine); Ordered 05/23/25 Ordered By: Eliezer Brooks Activity on Discharge: As tolerated Stand Alone Forms: Patient Portal Discharge page Print Language: Swedish Care Plan Goals: See below Health Concerns: Acute osteomyelitis of foot Diabetic foot ulcer Nicotine dependence Plan of Treatment: You were admitted to the hospital for an infection in the bone of the 5th digit on your left foot, and started on IV antibiotics. 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 You will need 6 weeks of IV ertapenem which will be administered daily at the infusion center here at [facility]. --Keep foot clean and dry, and use postop boot provided at the hospital --Follow up with wound care --You are strongly advised to stopped smoking --Continue all other medications Assessment: See discharge summary Discharge Date/Time: 05/23/25 17:45
[2025-05-23 11:10] LABS: Glucose, Whole Blood 108 mg/dL (60-115)
[2025-05-23 16:23] LABS: Glucose, Whole Blood 93 mg/dL (60-115)
== END 2025-05-23 17:45 | disposition home or self-care (01) | DRG 638 ==
LOC: HO.ED 11:37 → HO.EDOVER 12:29 → HO.S3 19:10
PROVIDERS: Internal Medicine Critical Care Medicine; Physician Assistant Medical; Admitting Provider Physician Assistant Medical; Emergency Provider Emergency Medicine Emergency Medical Services; PCP Nurse Practitioner Family; Visit Provider Student in an Organized Health Care Education/Training Program
DX: E11.69 Type 2 diabetes mellitus with other specified complication (principal); L03.116 Cellulitis of left lower limb; M86.172 Other acute osteomyelitis, left ankle and foot; E11.22 Type 2 diabetes mellitus with diabetic chronic kidney disease; I12.9 Hypertensive chronic kidney disease with stage 1 through stage 4 chronic kidney disease, or unspecified chronic kidney disease; E11.628 Type 2 diabetes mellitus with other skin complications; N18.30 Chronic kidney disease, stage 3 unspecified; E78.5 Hyperlipidemia, unspecified; F17.210 Nicotine dependence, cigarettes, uncomplicated; Z71.6 Tobacco abuse counseling; Z79.82 Long term (current) use of aspirin; Z79.84 Long term (current) use of oral hypoglycemic drugs; Z79.899 Other long term (current) drug therapy
CPT/HCPCS: 36415; 36558; 73630; 80048; 80053; 80202; 81001; 82043; 82565; 82570; 82947; 83036; 83605; 84156; 85025; 85652; 86140; 87040; 99285; C1751; C1769; J1335; J1642; J1644; J1650; J2003; J2270; J2405; J2543; J3010; J3373; J3374

== ENCOUNTER → 2025-05-18 09:44 | Outpatient (BNV) | payer MEDICARE, SELFPAY | PROVIDERS: PCP Nurse Practitioner Family; Visit Provider Radiology Diagnostic Radiology | DX: M86.072 Acute hematogenous osteomyelitis, left ankle and foot (principal) | CPT/HCPCS: 73630 ==

== ENCOUNTER 2025-05-18 12:08 | Outpatient (BNV) | payer MEDICARE, SELFPAY | END 2025-05-23 14:05 | PROVIDERS: Admitting Provider Physician Assistant Medical; Emergency Provider Emergency Medicine Emergency Medical Services; PCP Nurse Practitioner Family | DX: M86.9 Osteomyelitis, unspecified (principal) | CPT/HCPCS: 36558; 76937; 77001 ==

== ENCOUNTER → 2025-05-18 12:08 | Outpatient (BNV) | payer MEDICARE, SELFPAY | PROVIDERS: Admitting Provider Physician Assistant Medical; Emergency Provider Emergency Medicine Emergency Medical Services; PCP Nurse Practitioner Family; Visit Provider Physician Assistant Medical | DX: L03.116 Cellulitis of left lower limb (principal); M86.9 Osteomyelitis, unspecified | CPT/HCPCS: 99223; 99232 ==

== ENCOUNTER → 2025-05-18 12:08 | Outpatient (BNV) | payer MEDICARE, SELFPAY | PROVIDERS: Admitting Provider Physician Assistant Medical; Emergency Provider Emergency Medicine Emergency Medical Services; PCP Nurse Practitioner Family; Visit Provider Internal Medicine Critical Care Medicine | DX: E11.22 Type 2 diabetes mellitus with diabetic chronic kidney disease (principal); N18.31 Chronic kidney disease, stage 3a; I12.9 Hypertensive chronic kidney disease with stage 1 through stage 4 chronic kidney disease, or unspecified chronic kidney disease; R80.9 Proteinuria, unspecified | CPT/HCPCS: 99232 ==

== ENCOUNTER → 2025-05-18 12:08 | Outpatient (BNV) | payer MEDICARE, SELFPAY | PROVIDERS: Admitting Provider Physician Assistant Medical; Emergency Provider Emergency Medicine Emergency Medical Services; PCP Nurse Practitioner Family; Visit Provider Nurse Practitioner Family | DX: N18.32 Chronic kidney disease, stage 3b (principal) | CPT/HCPCS: 99231 ==

== ENCOUNTER → 2025-05-18 12:08 | Outpatient (BNV) | payer MEDICARE, SELFPAY | PROVIDERS: Admitting Provider Physician Assistant Medical; Emergency Provider Emergency Medicine Emergency Medical Services; PCP Nurse Practitioner Family; Visit Provider Internal Medicine | DX: M86.9 Osteomyelitis, unspecified (principal) | CPT/HCPCS: 99232 ==

== ENCOUNTER → 2025-05-18 12:08 | Outpatient (BNV) | payer MEDICARE, SELFPAY | PROVIDERS: Admitting Provider Physician Assistant Medical; Emergency Provider Emergency Medicine Emergency Medical Services; PCP Nurse Practitioner Family | DX: M86.9 Osteomyelitis, unspecified (principal) | CPT/HCPCS: 99232 ==

== ENCOUNTER 2025-05-25 09:10 | Outpatient (AMB) | payer MEDICARE, SELFPAY ==
[2025-05-25 09:11] VITALS: BP 124/56; PULSE 79; TEMP 36.9; O2SAT 98; BMI 25.6
--- NOTE | 2025-05-25 09:11 | AM.OFFWIN_ITS ---
Intake Vital Signs 05/25/25 09:11 Height 5 ft 10 in Weight 178 lb 3 oz BMI 25.6 BP 124/56 L Blood Pressure Location Lt brachial Position Sitting Pulse 79 Pulse Source Pulse Oximeter Temp 98.5 F Temp Source Oral Pulse Oximetry (%) 98 Oxygen Delivery Method Room Air Intake Visit Reasons: EP LT foot wound re-wrapped/checked? Intake Note: Patient recently released from hospital, has a wound on left foot that he unwrapped due to pain and now here to have it rewrapped Patient Tobacco Use Status: Current everyday Tobacco user Vault Maker Required: No Allergies No Known Allergies (No Known Allergies*) Allergy (Verified 05/25/25 09:21) Do you need a note to return to daycare/school/sports/work: No HPI HPI Comments 2 History of Present Illness Details History of Present Illness - The patient is a 74-year-old male pres enting with a toe infection. - He was seen here on 05/17 and then went to the ER as recommended on 05/18. - He was admitted to the hospital for IV antibiotics to treat osteomyelitis of the left 5th toe. - The toe infection has been persistent despite oral antibiotics, leading to a five-day hospitalization for intravenous antibiotic therapy. - The patient requires daily visits to [facility] for infusion therapy due to the absence of a visiting nurse. - The ulcer is located on the left fifth toe and he has a lot of pain. - He needs to wound rewrapped and checke d today. - He was supposed to be seen by wound siri soares and has not received an appt. - He took the bandage off himself and adamson s not replaced it. - The patient has a history of diabetes mellitus managed with metformin, but has not been able to monitor blood glucose levels due to lack of a glucose meter. - Recent A1c levels were 6.2% as of May 18, indicating controlled diabetes. - The patient reports swelling in the le ft foot, exacerbated by prolonged standing. - He denies fever or chills. He denies c care home pain, numbness, tingling, discharge or bleeding. Physical Exam General: Cooperative, healthy appearing, comfortable, no acute distress and well developed Respiratory: Normal respiratory effort and able to speak in complete sentences. Clear to auscultation bilaterally Cardiovascular: Regular rate and rhythm. Normal S1 and S2 Skin: Dry, crusted, flaking dark skin with an area of black scab noted on the left 5th toe. No discharge noted. No streaking noted. Neuro: Sensation is intact. Extremities: Left foot swollen, with mild erythema noted at the base of the toes. Edema noted to the left foot. TTP of the left 5th toe. Ambulates with a cane slowly. Strength is 5/5 on the LE. Patient was informed and verbally consented to the use of an ambient scribe for clinic note documentation during this visit. [facility] Medical History (Updated 05/25/25 @ 00:01 by Dallas Arzola) CKD stage 3b, GFR 30-44 ml/min Osteomyelitis HTN (hypertension) Microalbuminuria Diabetes Osteomyelitis Basal cell carcinoma PVD (peripheral vascular disease) Osteomyelitis of great toe of right foot Colon cancer screening declined Surgical History No pertinent past surgical history Family History Father Substance use disorder Mother Substance use disorder Maternal Grandfather Substance use disorder Maternal Grandfather Substance use disorder Social History Household Members: None Housing: House Do you presently have visiting nurse or other home services: No Alcohol intake: current Alcohol intake frequency: does not drink Patient Tobacco Use Status: Current everyday Tobacco user Tobacco use type: Cigarette Cigarette Packs Per Day: 1 Cigarettes Per Day: 20.0 Years Smoked: 45 e-Cigarette/Vaping Use: Never Used Second Hand Smoke Exposure: No Substance Use Type: Marijuana service: No Current occupational status: retired Cognitive needs: No Hearing needs: No Vision needs: No Review of Systems Const All systems reviewed & are unremarkable except as noted in HPI and below Physical Exam Vital Signs: Last Vital Signs Temp 98.5 F 05/25/25 09:11 Pulse 79 05/25/25 09:11 BP 124/56 L 05/25/25 09:11 Pulse Ox 98 05/25/25 09:11 Oxygen Delivery Method Room Air 05/25/25 09:11 BMI result Body Mass Index 25.6 Assessment & Plan Assessment & Plan (1) Toe osteomyelitis, left: Code(s): M86.9 - Osteomyelitis, unspecified Plan Most likely osteomyelitis, wound care follow up Plan - Continue daily intravenous antibiotic therapy for the osteomyelitis until June 29. - Referral to wound care center for ongoing management of the toe. - Ensure acquisition of a glucose meter to facilitate regular blood sugar monitoring. - Keep wound clean and covered. - Has an inpt follow up next week on - Follow up with PCP Orders: Referrals Wound Care Referral M86.9 - Osteomyelitis, unspecified Coding Level of Care Code Est Pt Level 3 (19965) Diagnoses Toe osteomyelitis, left M86.9
--- OUTSIDE RECORDS SUMMARY | 2025-05-25 09:31 | XMS_ITS | Clinical Summary ---
Author Organization [facility] Facility Address [address] [place] [id number] Care Team Providers Care Icer Air Conditioning Name Role Phone Seandara Ruben BOGGS Primary Care Provider [phone] Social History Tobacco Use Types Packs/Day Years [...] patient's age to complete this topic Insurance [facility] [employer] [facility] Complete (LIFE1) [place] [id number] Care Teams Icer Air Conditioning Relationship Specialty Start Date End Date Ruben Palacios NP 1959 [facility] [place] [id number] PCP - General 10/29/20
== END 2025-05-25 10:52 | disposition home or self-care (01) ==
PROVIDERS: PCP Nurse Practitioner Family; Visit Provider Physician Assistant Medical
DX: M86.9 Osteomyelitis, unspecified (principal)

== ENCOUNTER → 2025-05-25 09:10 | Outpatient (BNVA) | payer MEDICARE, SELFPAY | PROVIDERS: PCP Nurse Practitioner Family; Visit Provider Physician Assistant Medical | DX: M86.8X7 Other osteomyelitis, ankle and foot (principal) | CPT/HCPCS: 99212 ==

== ENCOUNTER 2025-06-01 11:33 | Outpatient (AMB) | payer MEDICARE, SELFPAY ==
--- NOTE | 2025-06-01 11:44 | A.OFFPC_ITS ---
Vital Signs 3 06/01/25 11:47 Height 5 ft 10 in Weight 178 lb BMI 25.5 BP 128/60 Blood Pressure Location Lt brachial Position Sitting Respiration 16 Pulse 68 Pulse Source Pulse Oximeter Pulse Oximetry (%) 98 Oxygen Delivery Method Room Air Intake Visit Reasons: HDF/LT foot, [facility] ED Housing Project Manager Required: No Accompanied by: Self / Same As Patient Allergies No Known Allergies (No Known Allergies*) Allergy (Verified 06/01/25 11:51) Tobacco use date assessed: 06/01/25 Fall risk assessment: No Falls in past year Last assessed Fall Risk: 06/01/25 Dental Screening Dental Screen Date: 06/01/25 Did you have a dental visit in the last 12 months?: No Did you have a dental problem in the last 6 months where you did not have access to dental care?: No Was dental information given to patient?: Patient declined HPI TCM 2 TCM Information0 Date of Discharge 05/23/25 Discharged From [facility] Interactive Contact Date (Reference documentation from this date) 05/24/25 HPI Comments 2 History of Present Illness0 Details Patient is a 74-year-old male with a past medical history of HTN, T2DM, PVD, BCC, LVH, elevated PSA who is here for a hospital discharge follow-up. Patient went to the [facility] Emergency Department after being treated with several rounds of antibiotics for a left 5th toe infection and failing p.o. antibiotics. He had this occur previously with osteomyelitis of the great toe of the right foot that required prolonged IV antibiotics via a PICC line for 3 months. In the emergency department, he was found to have a left 5th toe which was necrotic with surrounding erythema and warmth, he had an elevated ESR and CRP and an x-ray showed evidence of fist left 5th toe osteomyelitis. He was given IV vanco and Zosyn and admitted for continued IV antibiotics. Was seen and evaluated by ID who felt there was no need for an MRI and recommended continuing Zosyn while in the hospital and then discharging on 6 weeks of ertapenem 1 mg IV with end date of 06/29. While admitted, he had a Castellanos line placed (Nephrology wanted to preserve his vasculature for likely HD in the future) and will come to the [facility] infusion center daily for IV antibiotic administration. Pt was also given a postop boot for left foot protection as current bandaging prevented wearing his normal footwear. Pt will follow up with wound care. Blood cultures have remained negative to date. Pt is back to baseline and without any significant left foot pain. Pt set up with 6 weeks of IV Ertapenem via the infusion center, starting on 05/24 and ending on 06/29. Today, he states the left 5th toe is not painful, he is walking on it fine with a post-op shoe, he has been keeping it clean, and dry. He has been going to the infusion center every day since 05/24/25. He denies any fevers, states some leaking from the wound which is clear, no warmth on the toe. He just picked up a meter today to check his blood sugars today. He is unsure how to use it but has the meter, lancets and test strips. He is going to the wound care clinic on 06/05, this will be his first visit. He continues to smoke cigarettes. [facility] Medical History (Updated 06/01/25 @ 12:22 by Chastity Mitchell PA-C) Diabetes CKD stage 3b, GFR 30-44 ml/min Osteomyelitis HTN (hypertension) Microalbuminuria Osteomyelitis Basal cell carcinoma PVD (peripheral vascular disease) Osteomyelitis of great toe of right foot Colon cancer screening declined Surgical History No pertinent past surgical history Family History Father Substance use disorder Mother Substance use disorder Maternal Grandfather Substance use disorder Maternal Grandfather Substance use disorder Social History Household Members: None Housing: House Do you presently have visiting nurse or other home services: No Alcohol intake: current Alcohol intake frequency: does not drink Patient Tobacco Use Status: Current everyday Tobacco user Tobacco use type: Cigarette Cigarette Packs Per Day: 1 Cigarettes Per Day: 20.0 Years Smoked: 45 e-Cigarette/Vaping Use: Never Used Second Hand Smoke Exposure: No Substance Use Type: Marijuana service: No Current occupational status: retired Cognitive needs: No Hearing needs: No Vision needs: No Questionnaire PHQ-9 Over the last 2 weeks, how often have you been bothered by any of the following problems? 1. Little interest or pleasure in doing things: not at all 2. Feeling down, depressed, or hopeless: not at all 3. Trouble falling or staying asleep, or sleeping too much: not at all 4. Feeling tired or having little energy: not at all 5. Poor appetite or overeating: not at all 6. Feeling bad about yourself - or that you are a failure or have let yourself or your family down: not at all 7. Trouble concentrating on things, such as reading the newspaper or watching television: not at all 8. Moving or speaking so slowly that other people could have noticed. Or the opposite - being so fidgety or restless that you have been moving around a lot more than usual: not at all 9. Thoughts that you would be better off or of hurting yourself in some way: not at all Total score: 0 Depression Screening Interpretation: Negative Depression Screening Done: Yes 39638 - PHQ-9 Billing: Yes Source: Developed by Drs. Leonard Esteban, Jeremias Prince and colleagues, with an educational vicente from [employer]. Thrive Questionnaire Date Thrive assessed: 02/06/25 ENEDINA-7 AMB Questionnaire ENEDINA-7 Date ENEDINA - 7 assessed: 06/01/25 Feeling nervous, anxious, or on edge: 0 = Not at all Not being able to stop or control worryin = Not at all Worrying too much about different things: 0 = Not at all Trouble relaxin = Not at all Being so restless that it is hard to sit still: 0 = Not at all Becoming easily annoyed or irritable: 0 = Not at all Feeling afraid as if something awful might happen: 0 = Not at all Total ENEDINA-7 score (0-4 normal; 5-9 mild; 10-14 moderate; 15-21 severe): 0 Source: Developed by Drs. Leonard Esteban, Jeremias Prince and colleagues, with an educational vicente from [employer]. ENEDINA-7 Assessment Billing ENEDINA-7 Assessment Tool: ENEDINA-7 Assessment 62747 Review of Systems Const All systems reviewed & are unremarkable except as noted in HPI and below Physical exam (Primary Care) Vital Signs: Last Vital Signs Pulse 68 06/01/25 11:47 Resp 16 06/01/25 11:47 BP 128/60 06/01/25 11:47 Pulse Ox 98 06/01/25 11:47 Oxygen Delivery Method Room Air 06/01/25 11:47 BMI result Body Mass Index 25.5 Tobacco/Smoking Status: Tobacco use Status Tobacco use date assessed 06/01/25 06/01/25 11:56 Patient Tobacco Use Status Current everyday Tobacco 06/01/25 11:45 Tobacco use type Cigarette 06/01/25 11:45 e-Cigarette/Vaping Use Never Used 06/01/25 11:45 PHQ-9: PHQ-9 Score PHQ-9: Total score 0 06/01/25 11:56 Depression Screening Interpretation: Negative Thrive Assessment: Date of Thrive Assessment Date Thrive assessed 02/06/25 06/01/25 11:45 Const General: cooperative, healthy appearing, comfortable, no acute distress and well developed Orientation/consciousness: patient oriented x3 Limitations: no limitations HENMT Head: Yes normal to inspection Ears: hearing grossly normal bilaterally General nose exam: Normal external nose present Face and sinus: Yes normal facial exam Eyes General: appearance normal, both eyes and all related structures Neck Neck: Yes normal visual inspection and Yes full ROM Resp Effort & Inspection: normal respiratory effort and able to speak in complete sentences Skin General skin exam: no rashes or lesions noted Neuro General: patient oriented x3 Extrem Other: Left 5th toe, no warmth, some serosanginous fluid. Office Procedures Diabetes Self Management Details Details: Opal - nurse - taught pt how to use his meter [id number] Self Management Training, individual Coding Level of Care Code Est Pt Level 5 (99449) Diagnoses Hospital discharge follow-up Z09 Other chronic osteomyelitis of left foot M86.672 Osteomyelitis type: other chronic Osteomyelitis location: foot Laterality: left Diabetes E11.9 Diabetes mellitus type: type 2 Diabetes mellitus termite treater helper insulin use: without residential use Diabetes mellitus complication status: with skin complications CPT Codes Details - Diabetes Self Management: [id number] Self Management Training, individual ([id number]) Additional Codes ENEDINA-7 Assessment Billing - ENEDINA-7 Assessment Tool: ENEDINA-7 Assessment 64226 ([id number]) PHQ-9 - 75461 - PHQ-9 Billing: Yes ([id number]) Assessment & Plan Assessment & Plan (1) Hospital discharge follow-up: Code(s): Z09 - Encounter for follow-up examination after completed treatment for conditions other than malignant neoplasm Category: Medical Plan: - continue to keep the foot clean and dry - follow up with wound care on June 05, as scheduled - continue going to the infusion center daily for your IV antibiotics - as discussed, quit smoking as your wound would heal faster if you quit smoking (2) Osteomyelitis: Code(s): M86.9 - Osteomyelitis, unspecified Category: Medical Qualifiers: Osteomyelitis type: other chronic Osteomyelitis location: foot L aterality: left Qualified Code(s): M86.672 - Other chronic osteomyelitis, left ankle and foot Plan: as above (3) Diabetes: Code(s): E11.9 - Type 2 diabetes mellitus without complications Category: Medical Qualifiers: Diabetes mellitus type: type 2 Diabetes mellitus termite treater helper insulin use: without residential use Diabetes mellitus complication status: with skin complications Plan: - Opal, our nurse, has taught you how to use your meter, please check your blood sugars before each meal and take your Metformin. - Good blood sugar control is essential to wound healing.
[2025-06-01 11:47] VITALS: BP 128/60; PULSE 68; RESP 16; O2SAT 98; BMI 25.5
--- OUTSIDE RECORDS SUMMARY | 2025-06-01 12:38 | XMS_ITS | Clinical Summary ---
Author Organization [facility] Facility Address [address] [place] [id number] Care Team Providers Care Line Clearance Foreman Name Role Phone Seandara Ruben BOGGS Primary Care Provider [phone] Social History Tobacco Use Types Packs/Day Years [...] patient's age to complete this topic Insurance [facility] [employer] [facility] Complete (LIFE1) UHC Medicare Care Teams Line Clearance Foreman Relationship Specialty Start Date End Date Ruben Palacios NP 1959 [facility] [place] [address] PCP - General 10/29/20
== END 2025-06-01 12:45 | disposition home or self-care (01) ==
LOC: HO.HMCC 11:33
PROVIDERS: PCP Nurse Practitioner Family; Visit Provider Physician Assistant
DX: M86.672 Other chronic osteomyelitis, left ankle and foot (principal); E11.9 Type 2 diabetes mellitus without complications

== ENCOUNTER → 2025-06-01 11:33 | Outpatient (BNVA) | payer MEDICARE, SELFPAY | PROVIDERS: PCP Nurse Practitioner Family; Visit Provider Physician Assistant | DX: Z09 Encounter for follow-up examination after completed treatment for conditions other than malignant neoplasm (principal); M86.672 Other chronic osteomyelitis, left ankle and foot; E11.9 Type 2 diabetes mellitus without complications; F17.200 Nicotine dependence, unspecified, uncomplicated; Z71.6 Tobacco abuse counseling | CPT/HCPCS: 96127; 99495 ==

== ENCOUNTER → 2025-06-29 07:25 | Outpatient (RCR) | payer MEDICARE, SELFPAY ==
[2025-05-24 09:11] VITALS: BP 145/64; PULSE 80; RESP 18; TEMP 36.6; O2SAT 94
[2025-05-25 08:11] VITALS: BP 140/65; PULSE 82; RESP 18; TEMP 36.8; O2SAT 99
[2025-05-26 08:08] VITALS: BP 141/54; PULSE 70; RESP 16; TEMP 36.9; O2SAT 100
--- NOTE | 2025-05-26 08:28 | HO.INF ---
dressing change to r chest central line done in sterile fashion. biopatch applied. stitches remain visibly intact. ext measurement at 2.5cm. insertion site looks good free of any redness/swelling/bruising/oozing. line flushes easily. patent w/ easy blood return. clave replaced.
[2025-05-27 09:51] VITALS: BP 142/50; PULSE 67; RESP 16; TEMP 35.8; O2SAT 99
[2025-05-28 09:51] VITALS: BP 146/46; PULSE 63; RESP 17; TEMP 36.8; O2SAT 99
[2025-05-29 08:08] VITALS: BP 139/63; PULSE 79; RESP 16; TEMP 36.9; O2SAT 100
[2025-05-30 08:25] VITALS: BP 142/54; PULSE 67; RESP 18; TEMP 37.1; O2SAT 100
[2025-05-31 08:23] VITALS: BP 123/55; PULSE 65; RESP 16; TEMP 36.6; O2SAT 100
[2025-06-01 08:11] VITALS: BP 129/54; PULSE 72; RESP 18; TEMP 36.7; O2SAT 99
[2025-06-02 07:42] VITALS: BP 144/58; PULSE 66; RESP 16; TEMP 37.2; O2SAT 99
--- NOTE | 2025-06-02 08:21 | HO.INF ---
r chest central line dressing change done in sterile fashion w/ biopatch. clave replaced. line flushes easily, patent with visible blood return. pt offers no complaints r/t line or insertion site. no noted redness/swelling/bruising/oozing around insertion site. stitches remain intact securing line. line at 2.5cm external length, unchanged since last dressing change.
[2025-06-03 09:56] VITALS: BP 129/50; PULSE 72; RESP 18; TEMP 36.7; O2SAT 99
[2025-06-04 10:10] VITALS: BP 130/53; PULSE 70; RESP 18; TEMP 37; O2SAT 98
[2025-06-05 07:38] VITALS: BP 139/56; PULSE 68; RESP 16; TEMP 36.6; O2SAT 100
[2025-06-06 07:55] VITALS: BP 131/59; PULSE 64; RESP 16; TEMP 37.1; O2SAT 100
[2025-06-07 07:49] VITALS: BP 114/53; PULSE 75; RESP 16; TEMP 36.9; O2SAT 99
[2025-06-08 07:47] VITALS: BP 128/57; PULSE 71; RESP 16; TEMP 36.6; O2SAT 100
[2025-06-09 07:36] VITALS: BP 147/59; PULSE 66; RESP 16; TEMP 36.8; O2SAT 99
--- NOTE | 2025-06-09 07:52 | HO.INF ---
Addendum entered and electronically signed by Myron Webb RN 06/09/25 07:55: ext length at 2.5cm, unchanged. sutures remain intact. Original Note: r chest central line dressing change done in sterile fashion. biopatch replaced. clave replaced. line flushes easily, patent with blood return. pt denies complaints. no apparent redness/oozing/bleeding/swelling/edema/bruising noted.
[2025-06-10 10:20] VITALS: BP 136/76; PULSE 67; RESP 18; TEMP 36.1; O2SAT 97
[2025-06-11 10:02] VITALS: BP 132/76; PULSE 77; RESP 18; TEMP 36.4; O2SAT 97
[2025-06-12 07:18] VITALS: BP 125/54; PULSE 67; RESP 16; TEMP 37.1; O2SAT 97
[2025-06-13 07:43] VITALS: BP 144/58; PULSE 67; RESP 16; TEMP 37.2; O2SAT 100
[2025-06-14 07:20] VITALS: BP 119/54; PULSE 64; RESP 16; TEMP 36.3; O2SAT 99
[2025-06-15 07:19] VITALS: BP 131/62; PULSE 65; RESP 16; TEMP 36.1; O2SAT 98
[2025-06-16 07:28] VITALS: BP 122/53; PULSE 70; RESP 16; TEMP 36.8; O2SAT 98
--- NOTE | 2025-06-16 07:48 | HO.INF ---
r chest central line dressing change done in sterile fashion. biopatch and clave replaced. ext length 2.5cm unchanged. stitches remain intact. no noted swelling,redness,oozing,bleeding, other signs of infections. pt denies any complaints r/t to central line and insertion site. line flushes easily, patent, blood return visualized.
[2025-06-17 09:59] VITALS: BP 131/42; PULSE 75; RESP 20; TEMP 36.1; O2SAT 99
[2025-06-18 10:03] VITALS: BP 138/41; PULSE 76; RESP 18; TEMP 36.5; O2SAT 99
[2025-06-19 09:51] VITALS: BP 142/45; PULSE 74; RESP 16; TEMP 36.2; O2SAT 99
[2025-06-20 07:14] VITALS: BP 137/58; PULSE 66; RESP 18; TEMP 36.6; O2SAT 97
[2025-06-21 07:58] VITALS: BP 150/61; PULSE 61; RESP 16; TEMP 36.8; O2SAT 100
[2025-06-22 07:20] VITALS: BP 144/65; PULSE 66; RESP 16; TEMP 36.9; O2SAT 100
[2025-06-23 07:17] VITALS: BP 147/65; PULSE 66; RESP 16; TEMP 36.3; O2SAT 100
--- NOTE | 2025-06-23 07:50 | HO.INF ---
r chest central line dressing change done in sterile fashion. biopatch replaced. clave replaced. line patent, flushes easily. visible blood rtn. sutures remain intact. ext length at 2.5cm, unchanged. pt denies complaints r/t line. no visible sweling/drainage/oozing/edema/bruising.
[2025-06-24 09:51] VITALS: BP 153/48; PULSE 66; RESP 20; TEMP 36.7; O2SAT 99
[2025-06-25 10:07] VITALS: BP 138/60; PULSE 69; RESP 20; TEMP 36.4; O2SAT 96
[2025-06-26 07:19] VITALS: BP 145/62; PULSE 66; RESP 16; TEMP 36.6; O2SAT 98
[2025-06-27 07:08] VITALS: BP 161/64; PULSE 65; RESP 16; TEMP 36.6; O2SAT 99
[2025-06-28 07:20] VITALS: BP 162/70; PULSE 68; RESP 16; TEMP 36.2; O2SAT 100
[2025-06-29 07:15] VITALS: BP 120/51; PULSE 72; RESP 18; TEMP 36.2
== END | disposition home or self-care (01) ==
LOC: HO.INF 05-24 09:11
PROVIDERS: Visit Provider Student in an Organized Health Care Education/Training Program
DX: M86.8X7 Other osteomyelitis, ankle and foot (principal)
CPT/HCPCS: 90675; 96374; J1335

== ENCOUNTER 2025-06-29 07:29 | Outpatient (REF) | payer MEDICARE, SELFPAY ==
--- NOTE | ~2025-06-29 | IR_ITS ---
EXAMINATION: Removal of tunneled Castellanos catheter. CLINICAL INDICATION: Castellanos catheter not needed. Antibiotic course is over. PROCEDURE/FINDINGS: The area around the right Castellanos catheter insertion at the Chest wall was cleaned and draped in usual sterile manner. 1% lidocaine was inserted at puncture site. After removing the skin sutures the skin incision was slightly widened. Blunt dissection was performed around the catheter and extended to the cuff. The catheter was gently pulled out and the entire catheter came out without any bleeding. Post pull out complete hemostasis achieved at puncture site. Sterile dressing applied post procedure. There were no immediate comp occasions. IR/IR cvc remov tunnel wo prt/central aisle cashier IMPRESSION: Successful removal of right Castellanos catheter. Electronically signed by: Sheldon Rogers MD 06/29/2025 11:38 AM EDT
--- OUTSIDE RECORDS SUMMARY | 2025-06-29 07:33 | XMS_ITS | Clinical Summary ---
Author Organization [facility] Facility Address [address] [place] [id number] Care Team Providers Care Media Reconciliation Specialist Name Role Phone Seandara Ruben BOGGS Primary Care Provider [phone] Social History Tobacco Use Types Packs/Day Years [...] patient's age to complete this topic Insurance [facility] [employer] [facility] Complete (LIFE1) UHC Medicare Care Teams Media Reconciliation Specialist Relationship Specialty Start Date End Date Ruben Palacios NP 1959 [facility] [place] [id number] PCP - General 10/29/20
--- OUTSIDE RECORDS SUMMARY | 2025-06-29 07:33 | XMS_ITS | Encounter Summary ---
Author Organization [facility] Address [address] [place] [address] Phone Care Team Providers Care Rn Community Name Role Phone Ruben Palacios NP Primary Care Provider [phone] Encounter Details Date Type Department Care Team (Late st Contact Info) Description 01/26/2023 Documentation Only [facility], [address] [place] [address] Ruben Palacios NP [address] [place] [address] Social History Tobacco Use Types Packs/Day Years [...] on filedocumented in this encounter Care Teams Rn Community Relationship Specialty Start Date End Date Ruben Palacios NP [address] [place] [address] PCP - General 10/29/20 documented as of this encounter
== END 2025-06-29 07:30 | disposition home or self-care (01) ==
LOC: HO.RADIR 07:29
PROVIDERS: Visit Provider Student in an Organized Health Care Education/Training Program
DX: Z45.2 Encounter for adjustment and management of vascular access device (principal)
CPT/HCPCS: 36589; J2003

== ENCOUNTER → 2025-06-29 07:34 | Outpatient (BNV) | payer MEDICARE, SELFPAY | PROVIDERS: Visit Provider Radiology Diagnostic Radiology | DX: Z45.2 Encounter for adjustment and management of vascular access device (principal) | CPT/HCPCS: 36589 ==

== ENCOUNTER 2025-08-14 13:00 | Outpatient (RCR) | payer MEDICARE, SELFPAY | END 2025-09-15 16:37 | disposition home or self-care (01) | LOC: HO.WCC 13:00 | PROVIDERS: PCP Nurse Practitioner Family; Visit Provider Surgery Surgical Oncology | DX: E11.621 Type 2 diabetes mellitus with foot ulcer (principal); E11.51 Type 2 diabetes mellitus with diabetic peripheral angiopathy without gangrene; L97.521 Non-pressure chronic ulcer of other part of left foot limited to breakdown of skin; L97.522 Non-pressure chronic ulcer of other part of left foot with fat layer exposed; E11.69 Type 2 diabetes mellitus with other specified complication; M86.672 Other chronic osteomyelitis, left ankle and foot; E11.22 Type 2 diabetes mellitus with diabetic chronic kidney disease; I12.9 Hypertensive chronic kidney disease with stage 1 through stage 4 chronic kidney disease, or unspecified chronic kidney disease; N18.9 Chronic kidney disease, unspecified; F17.210 Nicotine dependence, cigarettes, uncomplicated | CPT/HCPCS: 97597; 99213 ==